=== PATIENT | female | born 1980 | race Two or more races ===

== ENCOUNTER 2020-04-12 11:24 | Outpatient (REF) | payer OTHER, SELFPAY | END 2020-04-12 11:25 | disposition home or self-care (01) | LOC: HO.LAB 11:24 | PROVIDERS: PCP Nurse Practitioner Family; Visit Provider Nurse Practitioner Family | DX: Z13.89 Encounter for screening for other disorder (principal) ==

== ENCOUNTER 2020-04-23 07:49 | Outpatient (REF) | payer OTHER, SELFPAY ==
[2020-04-23 08:39] LABS: MANUAL DIFF FLAG NO
[2020-04-23 08:41] LABS: Basophils Percent Auto 0.5 % (0-2); Eosinophils Absolute Auto 0.2 X10*3/uL (0.0-0.4); Eosinophils Percent Auto 3.8 % (0-4); Hematocrit 36.7 % (37-47); Hemoglobin 12.2 g/dl (12.0-16.0); Lymphocytes Absolute Auto 1.7 X10*3/uL (1.2-4.9); Lymphocytes Percent Auto 39.8 % (20-40); Mean Corpuscular HGB Conc 33.2 g/dl (31.0-35.0); Mean Corpuscular Hemoglobin 31.5 pg (27.0-33.0); Mean Corpuscular Volume 94.8 fL (80-98); Mean Platelet Volume 9.5 fL (9.4-12.3); Monocytes Absolute Auto 0.3 X10*3/uL (0.1-1.2); Monocytes Percent Auto 7.5 % (2-11); Neutrophils Absolute Auto 2.1 X10*3/uL (2.0-8.3); Neutrophils Percent Auto 48.4 % (45-73); Platelet Count 209 X10*3/uL (160-400); Red Blood Count 3.87 X10*6/uL (4.20-5.50); Red Cell Distribution Width 11.5 % (11.0-16.0); White Blood Count 4.3 X10*3/uL (4.8-10.8)
[2020-04-23 09:32] LABS: Alanine Aminotransferase 10 U/L (0-31); Albumin Level 4.2 g/dL (3.5-5.0); Alkaline Phosphatase 40 U/L (39-117); Anion Gap 11 (12-20); Aspartate Amino Transferase 15 U/L (5-31); Bilirubin Total 0.3 mg/dL (0.0-1.0); Blood Urea Nitrogen 11 mg/dL (9-16); C Reactive Protein 0.05 mg/dL (< or = 0.50); Calcium 8.5 mg/dL (8.4-10.2); Carbon Dioxide 25 mmol/L (22-29); Chloride 107 mmol/L (96-108); Cholesterol 175 mg/dL; Estimated Glomerular Filt Rate > 60; Glucose Fasting 96 mg/dL (60-99); HDL Cholesterol 64 mg/dL; LDL Cholesterol Calculated 104 mg/dl; Sodium 139 mmol/L (135-145); Total Protein 7.2 g/dL (6.5-8.0); Triglycerides 38 mg/dL
[2020-04-23 09:49] LABS: TSH reflex Free T4 2.09 mIU/mL (0.32-4.0)
== END 2020-04-23 07:50 | disposition home or self-care (01) ==
LOC: HO.LAB 07:49
PROVIDERS: Visit Provider Nurse Practitioner Family
DX: R59.9 Enlarged lymph nodes, unspecified (principal); M25.512 Pain in left shoulder; L60.3 Nail dystrophy; L65.9 Nonscarring hair loss, unspecified; Z13.220 Encounter for screening for lipoid disorders
CPT/HCPCS: 36415; 80053; 80061; 84443; 85025; 86140

== ENCOUNTER 2020-05-21 08:00 | Outpatient (RCR) | payer OTHER, SELFPAY | END 2020-05-21 13:58 | disposition other institution (70) | LOC: HO.PT 08:00 | PROVIDERS: PCP Nurse Practitioner Family; Visit Provider Nurse Practitioner Family | DX: M79.18 Myalgia, other site (principal) | CPT/HCPCS: 97033; 97110; 97112; 97140; 97162; 97530; 97535 ==

== ENCOUNTER 2020-06-16 10:18 | Outpatient (REF) | payer OTHER, SELFPAY ==
[2020-06-16 10:56] LABS: Immature Retic Fraction 8.4 % (3.0-15.9); Retic HGB Equivalent 36.2 pg (30.0-35.0); Reticulocyte Percent 1.9 % (0.5-1.8); Reticulocytes Absolute 0.078 X10*6/uL (0.026-0.095)
[2020-06-16 11:38] LABS: Bilirubin Direct 0.2 mg/dL (0.0-0.5); Bilirubin Total 0.6 mg/dL (0.0-1.0); Lactate Dehydrogenase 124 U/L (122-220)
[2020-06-16 11:59] LABS: Ferritin 34 ng/mL (10-250)
[2020-06-17 17:17] LABS: Haptoglobin 73 mg/dL (43-212)
== END 2020-06-16 10:19 | disposition home or self-care (01) ==
LOC: HO.LAB 10:18
PROVIDERS: PCP Nurse Practitioner Family; Visit Provider Nurse Practitioner Family
DX: D64.9 Anemia, unspecified (principal)
CPT/HCPCS: 36415; 82247; 82248; 82728; 83010; 83615; 85045

== ENCOUNTER → 2020-06-21 09:07 | Outpatient (BNVA) | payer OTHER, SELFPAY | PROVIDERS: PCP Nurse Practitioner Family; Referring Provider Nurse Practitioner Family; Visit Provider Internal Medicine Gastroenterology ==

== ENCOUNTER 2020-07-16 09:02 | Outpatient (REF) | payer OTHER, SELFPAY ==
[2020-07-16 09:31] LABS: MANUAL DIFF FLAG NO
[2020-07-16 09:35] LABS: Basophils Percent Auto 0.5 % (0-2); Eosinophils Absolute Auto 0.1 X10*3/uL (0.0-0.4); Eosinophils Percent Auto 2.4 % (0-4); Hematocrit 39.6 % (37-47); Hemoglobin 12.9 g/dl (12.0-16.0); Imm Gran Abs Auto 0.01 X10*3/uL (0.00-0.03); Imm Gran Pct Auto 0.2 % (0.0-0.4); Lymphocytes Absolute Auto 1.9 X10*3/uL (1.2-4.9); Mean Corpuscular HGB Conc 32.6 g/dl (31.0-35.0); Mean Corpuscular Hemoglobin 30.7 pg (27.0-33.0); Mean Corpuscular Volume 94.3 fL (80-98); Mean Platelet Volume 9.1 fL (9.4-12.3); Monocytes Absolute Auto 0.4 X10*3/uL (0.1-1.2); Monocytes Percent Auto 6.6 % (2-11); Neutrophils Percent Auto 55.3 % (45-73); Platelet Count 233 X10*3/uL (160-400); Red Cell Distribution Width 11.9 % (11.0-16.0); White Blood Count 5.5 X10*3/uL (4.8-10.8)
[2020-07-16 10:17] LABS: Alanine Aminotransferase 15 U/L (0-31); Albumin Level 4.6 g/dL (3.5-5.0); Alkaline Phosphatase 43 U/L (39-117); Anion Gap 10 (12-20); Aspartate Amino Transferase 16 U/L (5-31); Bilirubin Total 0.6 mg/dL (0.0-1.0); Blood Urea Nitrogen 12 mg/dL (9-16); C Reactive Protein 0.03 mg/dL (< or = 0.50); Calcium 9.3 mg/dL (8.4-10.2); Carbon Dioxide 28 mmol/L (22-29); Chloride 104 mmol/L (96-108); Estimated Glomerular Filt Rate > 60; Glucose Random 92 mg/dL (60-115); Potassium 4.2 mmol/L (3.3-5.1); Sodium 138 mmol/L (135-145); Total Protein 8.1 g/dL (6.5-8.0)
[2020-07-16 10:26] LABS: Erythrocyte Sedimentation Rate 10 MM/HR (0-20)
[2020-07-16 10:41] LABS: Ferritin 31 ng/mL (10-250); Vitamin D 25-OH Total 34.6 ng/mL (>30)
[2020-07-16 11:16] LABS: Folate 19.4 ng/mL (> or = 4.0); Vitamin B12 1598 pg/mL (200-900)
[2020-07-19 13:11] LABS: Transglutaminase Ab IgG 3 U/mL; Transglutaminase IgA 1 U/mL
[2020-07-20 14:37] LABS: Nicotinamide <20 ng/mL; Vit B3 - Nicotinic Acid <20 ng/mL
[2020-07-21 06:12] LABS: IgA 265 mg/dL (47-310); IgG 1786 mg/dL (600-1640); IgM 150 mg/dL (50-300)
[2020-07-22 01:26] LABS: Zinc 83 mcg/dL (60-130)
[2020-07-22 08:13] LABS: Vitamin B6 40.6 ng/mL (2.1-21.7)
[2020-07-22 18:16] LABS: Vitamin A 28 mcg/dL (38-98)
[2020-07-23 12:16] LABS: Alpha-Tocopherol 14.3 mg/L (5.7-19.9); Beta-Gamma Tocopherol <1.0 mg/L (<=4.3)
[2020-07-23 17:57] LABS: Vitamin K1 702 pg/mL (130-1500)
[2020-07-26 09:17] LABS: Vitamin B5 (Pantothenic Acid) 91 ng/mL (<275)
== END 2020-07-16 09:03 | disposition home or self-care (01) ==
LOC: HO.LAB 09:02
PROVIDERS: PCP Nurse Practitioner Family; Visit Provider Internal Medicine Gastroenterology
DX: K52.839 Microscopic colitis, unspecified (principal); G89.29 Other chronic pain; R10.33 Periumbilical pain
CPT/HCPCS: 36415; 80053; 82180; 82306; 82607; 82728; 82746; 82784; 83516; 84207; 84446; 84590; 84591; 84597; 84630; 85025; 85652; 86140

== ENCOUNTER 2020-09-07 10:00 | Outpatient (REF) | payer OTHER, SELFPAY ==
[2020-09-08 13:45] LABS: BV Int Neg Control Negative (Negative); BV Int Pos Control Positive (Positive)
== END 2020-09-07 10:01 | disposition home or self-care (01) ==
LOC: HO.LAB 10:00
PROVIDERS: PCP Nurse Practitioner Family; Visit Provider Advanced Practice Midwife
DX: Z01.419 Encounter for gynecological examination (general) (routine) without abnormal findings (principal); Z20.2 Contact with and (suspected) exposure to infections with a predominantly sexual mode of transmission
CPT/HCPCS: 87480; 87510; 87660

== ENCOUNTER 2020-09-17 12:08 | Outpatient (REF) | payer OTHER, SELFPAY ==
[2020-09-22 19:22] LABS: Vitamin A 28 mcg/dL (38-98)
== END 2020-09-17 12:09 | disposition home or self-care (01) ==
LOC: HO.LAB 12:08
PROVIDERS: Absent Provider Nurse Practitioner Family; PCP Nurse Practitioner Family; Visit Provider Internal Medicine Gastroenterology
DX: K52.839 Microscopic colitis, unspecified (principal)
CPT/HCPCS: 36415; 84590

== ENCOUNTER → 2020-10-15 10:16 | Outpatient (BNVA) | payer OTHER, SELFPAY | PROVIDERS: PCP Nurse Practitioner Family; Visit Provider Internal Medicine Gastroenterology ==

== ENCOUNTER 2020-11-20 08:33 | Outpatient (REF) | payer OTHER, SELFPAY ==
[2020-11-20 10:10] LABS: Vitamin D 25-OH Total 32.4 ng/mL (>30)
[2020-11-25 00:46] LABS: Vitamin A 28 mcg/dL (38-98)
== END 2020-11-20 08:34 | disposition home or self-care (01) ==
LOC: HO.LAB 08:33
PROVIDERS: PCP Nurse Practitioner Family; Visit Provider Internal Medicine Gastroenterology
DX: K52.839 Microscopic colitis, unspecified (principal)
CPT/HCPCS: 36415; 82306; 84590

== ENCOUNTER → 2021-02-18 10:04 | Outpatient (BNVA) | payer OTHER, SELFPAY | PROVIDERS: PCP Nurse Practitioner Family; Visit Provider Internal Medicine Gastroenterology ==

== ENCOUNTER 2021-03-19 07:22 | Outpatient (REF) | payer OTHER, SELFPAY ==
[2021-03-19 08:24] LABS: Iron 84 mcg/dL (30-160); Percent Iron Saturation 25 % (15-50); Total Iron Binding Capacity 342 mcg/dL (228-428); Unsaturated Iron Binding 258 ug/dL
[2021-03-19 08:44] LABS: Ferritin 45 ng/mL (10-250); Vitamin D 25-OH Total 34.3 ng/mL (>30)
[2021-03-19 09:09] LABS: Folate 15.5 ng/mL (> or = 4.0); Vitamin B12 753 pg/mL (200-900)
[2021-03-21 08:46] LABS: Calcium, Ionized 4.9 mg/dL (4.8-5.6)
[2021-03-23 00:20] LABS: Vitamin A 33 mcg/dL (38-98)
[2021-03-23 01:26] LABS: Zinc 130 mcg/dL (60-130)
[2021-03-23 12:46] LABS: Nicotinamide <20 ng/mL; Vit B3 - Nicotinic Acid <20 ng/mL
[2021-03-24 16:41] LABS: Vitamin B6 58.7 ng/mL (2.1-21.7)
[2021-03-24 20:26] LABS: Vitamin C 1.4 mg/dL (0.3-2.7)
[2021-03-25 17:01] LABS: Vitamin B5 (Pantothenic Acid) 40 ng/mL (<275)
== END 2021-03-19 07:23 | disposition home or self-care (01) ==
LOC: HO.LAB 07:22
PROVIDERS: PCP Nurse Practitioner Family; Visit Provider Internal Medicine Gastroenterology
DX: E03.8 Other specified hypothyroidism (principal); E46 Unspecified protein-calorie malnutrition; K52.839 Microscopic colitis, unspecified
CPT/HCPCS: 36415; 82180; 82306; 82330; 82607; 82728; 82746; 83540; 84207; 84590; 84591; 84630

== ENCOUNTER 2021-03-26 08:43 | Outpatient (REF) | payer OTHER, SELFPAY ==
[2021-03-26 10:13] LABS: Hematocrit 36.5 % (37.0-47.0); Hemoglobin 12.1 g/dl (12.0-16.0); Mean Corpuscular HGB Conc 33.2 g/dl (31.0-35.0); Mean Corpuscular Hemoglobin 31.2 pg (27.0-33.0); Mean Corpuscular Volume 94.1 fL (80.0-98.0); Mean Platelet Volume 9.7 fL (9.4-12.3); Platelet Count 226 X10*3/uL (160-400); Red Blood Count 3.88 X10*6/uL (4.20-5.50); Red Cell Distribution Width 12.1 % (11.0-16.0); White Blood Count 5.1 X10*3/uL (4.8-10.8)
[2021-03-26 10:55] LABS: Alanine Aminotransferase 12 U/L (0-31); Albumin Level 4.1 g/dL (3.5-5.0); Alkaline Phosphatase 43 U/L (39-117); Anion Gap 10 (12-20); Aspartate Amino Transferase 16 U/L (5-31); Bilirubin Total 0.6 mg/dL (0.0-1.0); Blood Urea Nitrogen 10 mg/dL (9-16); Calcium 9.1 mg/dL (8.4-10.2); Carbon Dioxide 25 mmol/L (22-29); Chloride 108 mmol/L (96-108); Cholesterol 165 mg/dL; Estimated Glomerular Filt Rate > 60; Glucose Random 85 mg/dL (60-115); HDL Cholesterol 56 mg/dL; LDL Cholesterol Calculated 100 mg/dl; Sodium 139 mmol/L (135-145); Total Protein 7.2 g/dL (6.5-8.0); Triglycerides 46 mg/dL
[2021-03-26 11:08] LABS: Free T4 (Free Thyroxine) 0.97 ng/dL (0.71-1.85); Thyroid Stimulating Hormone 2.31 uIU/mL (0.32-4.0)
[2021-03-28 08:05] LABS: Vitamin B12 739 pg/mL (200-900)
== END 2021-03-26 08:44 | disposition home or self-care (01) ==
LOC: HO.LAB 08:43
PROVIDERS: Absent Provider Nurse Practitioner Family; PCP Nurse Practitioner Family; Visit Provider Dentist Pediatric Dentistry
DX: R68.89 Other general symptoms and signs (principal)
CPT/HCPCS: 36415; 80053; 80061; 82306; 82607; 84439; 84443; 85027

== ENCOUNTER 2021-04-01 16:20 | Outpatient (REF) | payer OTHER, SELFPAY | END 2021-04-01 16:21 | disposition home or self-care (01) | LOC: HO.LAB 16:20 | PROVIDERS: PCP Nurse Practitioner Family; Visit Provider Internal Medicine Gastroenterology | DX: K52.839 Microscopic colitis, unspecified (principal); E46 Unspecified protein-calorie malnutrition; E03.8 Other specified hypothyroidism | CPT/HCPCS: 36415; 86003 ==

== ENCOUNTER 2021-06-14 10:28 | Outpatient (REF) | payer OTHER, SELFPAY ==
--- NOTE | ~2021-06-14 | US_ITS ---
EXAMINATION: US LOWER EXTREMITY VENOUS (REFLUX EXAM), BILATERAL CLINICAL INDICATION: This is a 40-year-old female with venous insufficiency and varicose veins. COMPARISON: None. TECHNIQUE: Color flow triplex imaging and compression Doppler was performed to evaluate both the deep and the superficial systems bilaterally. To evaluate the superficial system, the examination was performed in the upright position. Color-flow Doppler ultrasound and compression ultrasound were utilized. In addition, maneuvers were utilized to demonstrate reflux. FINDINGS: 1. DEEP VENOUS ULTRASOUND OF THE RIGHT LOWER EXTREMITY: Common Femoral Vein: Compressible, normal respiratory variation and augmented flow. Femoral vein: Compressible, normal color flow and augmentation. Popliteal Vein: Compressible, normal augmentation. Deep Reflux: There is no evidence of reflux in the deep system in either the common femoral vein or the popliteal vein. There is no evidence of a Burk's cyst. 2. SUPERFICIAL ULTRASOUND WITH DOPPLER OF RIGHT LOWER EXTREMITY: GREAT SAPHENOUS VEIN: Saphenofemoral Junction: 0.8 cm Mid Thigh: 0.2 cm Above Knee: 0.3 cm Below Knee: 0.2 cm Mid Calf: 0.1 cm Ankle: There are 0.2 cm GSV REFLUX: No evidence of reflux. DUPLICATED GREAT SAPHENOUS VEIN: There is a 0.3 cm duplicated lateral great saphenous vein without reflux. SMALL SAPHENOUS VEIN: Proximal: 0.1 cm Distal: 0.1 cm SSV REFLUX: No evidence of reflux. VEIN OF GIACOMINI: None Imaged. PERFORATORS: None Imaged VARICOSITIES: None Imaged 3. DEEP VENOUS ULTRASOUND OF THE LEFT LOWER EXTREMITY: Common Femoral Vein: Compressible, normal respiratory variation and augmented flow. Femoral Vein: Compressible, normal color flow and augmentation. Popliteal Vein: Compressible, normal augmentation. Deep Reflux: There is no evidence of reflux in the deep system in either the common femoral vein or the popliteal vein. There is no evidence of a Burk's cyst. 4. SUPERFICIAL ULTRASOUND WITH DOPPLER OF LEFT LOWER EXTREMITY: GREAT SAPHENOUS VEIN: Saphenofemoral Junction: 0.8 cm Mid Thigh: 0.3 cm Above Knee: 0.5 cm Below Knee: 0.2 cm. The reflux time is 1912 ms. There is no reflux above or below this area. Mid Calf: 0.2 cm Ankle: 0.2 cm GSV REFLUX: There is no significant reflux in the great saphenous vein. DUPLICATED GREAT SAPHENOUS VEIN: There is a 0.2 cm duplicated lateral great saphenous vein without reflux. SMALL SAPHENOUS VEIN: Proximal: 0.2 cm Distal: 0.1 cm SSV REFLUX: No evidence of reflux. VEIN OF GIACOMINI: None Imaged. PERFORATORS: None Imaged VARICOSITIES: None Imaged US/US venous duplex LE BI IMPRESSION: 1 there are bilateral patent great saphenous veins and small saphenous veins without evidence of reflux. 2. No varicose veins are seen.
== END 2021-06-14 10:29 | disposition home or self-care (01) ==
LOC: HO.US 10:28
PROVIDERS: Visit Provider Surgery Vascular Surgery
DX: I83.813 Varicose veins of bilateral lower extremities with pain (principal)
CPT/HCPCS: 93970

== ENCOUNTER 2021-08-16 12:41 | Outpatient (REF) | payer OTHER, SELFPAY ==
[2021-08-22 12:46] LABS: Vitamin A 28 mcg/dL (38-98)
== END 2021-08-16 12:42 | disposition home or self-care (01) ==
LOC: HO.LAB 12:41
PROVIDERS: PCP Nurse Practitioner Family; Visit Provider Internal Medicine Gastroenterology
DX: E50.9 Vitamin A deficiency, unspecified (principal)
CPT/HCPCS: 36415; 84590

== ENCOUNTER → 2021-08-19 09:54 | Outpatient (BNVA) | payer OTHER, SELFPAY | PROVIDERS: PCP Nurse Practitioner Family; Visit Provider Internal Medicine Gastroenterology | DX: Z13.89 Encounter for screening for other disorder (principal) ==

== ENCOUNTER 2021-09-05 14:38 | Outpatient (REF) | payer OTHER, SELFPAY ==
--- NOTE | ~2021-09-05 | MM_ITS ---
EXAMINATION: MM DIAGNOSTIC DIGITAL BREAST TOMOSYNTHESIS, BILATERAL US DIAGNOSTIC ULTRASOUND BREAST, RIGHT CLINICAL INFORMATION: Palpable area anterior lateral right breast noted by patient. Prior history fibrocystic changes. The lifetime risk of breast cancer based on the Tyrer-Cuzick Model is 19%. COMPARISON: Mammography: 03/25/2019; bilateral breast ultrasound 03/25/2019, outside ultrasound right breast 02/27/2017 ([facility]). TECHNIQUE: Digital breast tomosynthesis is performed in both the craniocaudal and mediolateral oblique views along with computer-aided detection (CAD). Synthesized 2D images are generated from the tomosynthesis. Additional bilateral exaggerated CC views are obtained. Ultrasound right breast is targeted to the area of clinical concern. Grayscale imaging and color Doppler are performed without and with harmonics. Patient is able to point to area of concern at time of imaging. FINDINGS: The breasts are heterogeneously dense, which may obscure small masses (ACR BI-RADS breast composition Category c). There is mild increased parenchymal density on right related to asymmetry of compression 4 cm time of imaging. There is nodularity right breast corresponding to fibrocystic changes. Neither breast shows architectural abnormality or abnormal calcifications. There is no skin thickening or coarsening of the Celestino's ligaments. The axilla are unremarkable. Ultrasound right breast demonstrates simple cyst 9:00 position 2 cm from nipple measuring approximately 3.1 x 2.2 x 2.6 cm. Prior measurements are 2.7 x 0.9 x 2.6 cm on ultrasound 03/25/2019. The cyst is anechoic and shows increased through-transmission of sound and no associated color flow. There is a tiny satellite cyst 0.5 cm posterior to the dominant cyst. There is no solid mass or architectural abnormality. No focal duct ectasia. No skin thickening or edema tracking in soft tissue planes. Results are discussed with the patient at time of visit. The cyst would be amenable to percutaneous aspiration if symptomatic and/or increasing. MM/MM tomosynthesis diagnostic BI IMPRESSION: -No mammographic evidence of malignancy. -Palpable concern on right corresponds to a simple cyst measuring 3.1 cm. ASSESSMENT: BI-RADS 2: Benign RECOMMENDATION: -Routine annual screening mammography. -The simple cyst right breast would be amenable to percutaneous aspiration if symptomatic or increasing. This patient's information was entered into a reminder system with a target due date for their next mammogram.
== END 2021-09-05 14:39 | disposition home or self-care (01) ==
LOC: HO.MAMMO 14:38
PROVIDERS: PCP Nurse Practitioner Family; Visit Provider Family Medicine
DX: N60.01 Solitary cyst of right breast (principal)
CPT/HCPCS: 76642; 77062; 77066

== ENCOUNTER → 2021-09-09 10:25 | Outpatient (BNVA) | payer OTHER, SELFPAY | PROVIDERS: PCP Nurse Practitioner Family; Visit Provider Advanced Practice Midwife | DX: Z01.419 Encounter for gynecological examination (general) (routine) without abnormal findings (principal) ==

== ENCOUNTER 2022-02-13 16:00 | Outpatient (REF) | payer OTHER, SELFPAY ==
--- NOTE | ~2022-02-13 | XR_ITS ---
EXAMINATION: XR CHEST CLINICAL INFORMATION: Shortness of breath COMPARISON: None TECHNIQUE: 2 views of the chest were obtained. FINDINGS: Cardiac silhouette is normal in size. The lungs are well aerated. There is no lobar consolidation. No pleural effusion or pneumothorax. Mild degenerative changes of the spine. XR/XR chest 2V IMPRESSION: No acute pulmonary pathology.
[2022-02-13 16:17] LABS: MANUAL DIFF FLAG NO
[2022-02-13 16:40] LABS: Basophils Absolute Auto 0.1 X10*3/uL (0.0-0.2); Basophils Percent Auto 0.8 % (0-2); Eosinophils Absolute Auto 0.3 X10*3/uL (0.0-0.4); Eosinophils Percent Auto 4.1 % (0-4); Hematocrit 37.4 % (37.0-47.0); Hemoglobin 12.4 g/dl (12.0-16.0); Imm Gran Abs Auto 0.02 X10*3/uL (0.00-0.03); Imm Gran Pct Auto 0.3 % (0.0-0.4); Lymphocytes Absolute Auto 2.1 X10*3/uL (1.2-4.9); Lymphocytes Percent Auto 34.1 % (20-40); Mean Corpuscular HGB Conc 33.2 g/dl (31.0-35.0); Mean Corpuscular Hemoglobin 30.7 pg (27.0-33.0); Mean Corpuscular Volume 92.6 fL (80.0-98.0); Mean Platelet Volume 9.4 fL (9.4-12.3); Monocytes Absolute Auto 0.4 X10*3/uL (0.1-1.2); Monocytes Percent Auto 6.8 % (2-11); Neutrophils Absolute Auto 3.3 x10*3/uL (2.0-8.3); Neutrophils Percent Auto 53.9 % (45-73); Platelet Count 259 X10*3/uL (160-400); Red Blood Count 4.04 X10*6/uL (4.20-5.50); White Blood Count 6.2 X10*3/uL (4.8-10.8)
[2022-02-13 17:05] LABS: Alanine Aminotransferase 16 U/L (0-31); Albumin Level 4.5 g/dL (3.5-5.0); Alkaline Phosphatase 50 U/L (39-117); Anion Gap 13 (12-20); Aspartate Amino Transferase 19 U/L (5-31); Bilirubin Total 0.3 mg/dL (0.0-1.0); Blood Urea Nitrogen 10 mg/dL (9-16); Calcium 9.6 mg/dL (8.4-10.2); Carbon Dioxide 26 mmol/L (22-29); Chloride 103 mmol/L (96-108); Estimated Glomerular Filt Rate > 60; Glucose Random 89 mg/dL (60-115); Potassium 3.9 mmol/L (3.3-5.1); Sodium 138 mmol/L (135-145); Total Protein 7.9 g/dL (6.5-8.0)
[2022-02-13 17:26] LABS: TSH reflex Free T4 1.52 uIU/mL (0.32-4.0)
[2022-02-17 18:51] LABS: Vitamin A 62 mcg/dL (38-98)
== END 2022-02-13 16:01 | disposition home or self-care (01) ==
LOC: HO.LAB 16:00
PROVIDERS: PCP Nurse Practitioner Family; Visit Provider Nurse Practitioner Family
DX: Z00.00 Encounter for general adult medical examination without abnormal findings (principal); R06.00 Dyspnea, unspecified; D64.9 Anemia, unspecified
CPT/HCPCS: 36415; 71046; 80053; 84443; 84590; 85025

== ENCOUNTER 2022-07-07 09:28 | Outpatient (REF) | payer OTHER, SELFPAY ==
[2022-07-07 09:54] LABS: MANUAL DIFF FLAG NO
[2022-07-07 11:00] LABS: Basophils Percent Auto 0.6 % (0-2); Eosinophils Absolute Auto 0.2 X10*3/uL (0.0-0.4); Eosinophils Percent Auto 3.5 % (0-4); Hematocrit 36.4 % (37.0-47.0); Hemoglobin 12.1 g/dl (12.0-16.0); Imm Gran Abs Auto 0.01 X10*3/uL (0.00-0.03); Imm Gran Pct Auto 0.2 % (0.0-0.4); Lymphocytes Absolute Auto 1.8 X10*3/uL (1.2-4.9); Mean Corpuscular HGB Conc 33.2 g/dl (31.0-35.0); Mean Corpuscular Hemoglobin 31.5 pg (27.0-33.0); Mean Corpuscular Volume 94.8 fL (80.0-98.0); Mean Platelet Volume 9.7 fL (9.4-12.3); Monocytes Absolute Auto 0.4 X10*3/uL (0.1-1.2); Monocytes Percent Auto 7.7 % (2-11); Neutrophils Absolute Auto 2.6 x10*3/uL (2.0-8.3); Platelet Count 224 X10*3/uL (160-400); Red Blood Count 3.84 X10*6/uL (4.20-5.50); Red Cell Distribution Width 11.9 % (11.0-16.0); White Blood Count 4.9 X10*3/uL (4.8-10.8)
[2022-07-07 11:20] LABS: Alanine Aminotransferase 9 U/L (0-31); Alkaline Phosphatase 47 U/L (39-117); Anion Gap 10 (12-20); Aspartate Amino Transferase 17 U/L (5-31); Bilirubin Total 0.6 mg/dL (0.0-1.0); Blood Urea Nitrogen 12 mg/dL (9-16); Calcium 8.6 mg/dL (8.4-10.2); Carbon Dioxide 26 mmol/L (22-29); Chloride 107 mmol/L (96-108); Estimated Glomerular Filt Rate > 60; Glucose Random 87 mg/dL (60-115); Sodium 139 mmol/L (135-145); Total Protein 6.6 g/dL (6.5-8.0)
[2022-07-07 11:38] LABS: TSH reflex Free T4 1.47 uIU/mL (0.32-4.0); Vitamin D 25-OH Total 21.7 ng/mL (>30)
== END 2022-07-07 09:29 | disposition home or self-care (01) ==
LOC: HO.LAB 09:28
PROVIDERS: PCP Physician Assistant Medical; Visit Provider Physician Assistant Medical
DX: R53.82 Chronic fatigue, unspecified (principal)
CPT/HCPCS: 36415; 80053; 82306; 84443; 85025

== ENCOUNTER → 2022-07-17 11:03 | Outpatient (BNVA) | payer OTHER, SELFPAY | PROVIDERS: PCP Physician Assistant Medical; Visit Provider Internal Medicine Gastroenterology | DX: Z13.89 Encounter for screening for other disorder (principal) ==

== ENCOUNTER 2022-07-22 09:44 | Outpatient (REF) | payer OTHER, SELFPAY ==
[2022-07-27 05:09] LABS: Vitamin A 33 mcg/dL (38-98)
== END 2022-07-22 09:45 | disposition home or self-care (01) ==
LOC: HO.LAB 09:44
PROVIDERS: Absent Provider Physician Assistant Medical; PCP Physician Assistant Medical; Visit Provider Internal Medicine Gastroenterology
DX: E50.9 Vitamin A deficiency, unspecified (principal)
CPT/HCPCS: 36415; 84590

== ENCOUNTER → 2022-09-20 11:36 | Outpatient (REF) | payer OTHER, SELFPAY | LOC: HO.SL 11:36 | PROVIDERS: PCP Physician Assistant Medical; Visit Provider Physician Assistant Medical | DX: R06.83 Snoring (principal); R53.82 Chronic fatigue, unspecified | CPT/HCPCS: 95806 ==

== ENCOUNTER 2022-12-29 08:28 | Outpatient (REF) | payer OTHER, SELFPAY ==
[2022-12-29 11:37] LABS: Alanine Aminotransferase 9 U/L (0-31); Albumin Level 4.2 g/dL (3.5-5.0); Alkaline Phosphatase 59 U/L (39-117); Anion Gap 10 (12-20); Aspartate Amino Transferase 16 U/L (5-31); Bilirubin Total 0.3 mg/dL (0.0-1.0); Blood Urea Nitrogen 11 mg/dL (9-16); Carbon Dioxide 26 mmol/L (22-29); Chloride 106 mmol/L (96-108); Estimated Glomerular Filt Rate > 60; Glucose Random 91 mg/dL (60-115); Sodium 138 mmol/L (135-145); Total Protein 7.4 g/dL (6.5-8.0)
[2022-12-29 11:58] LABS: Folate 14.2 ng/mL (> or = 4.0); Vitamin B12 1072 pg/mL (200-900)
[2022-12-29 12:03] LABS: Ferritin 49 ng/mL (10-250); Vitamin D 25-OH Total 32.5 ng/mL (>30)
[2023-01-03 03:23] LABS: Zinc 78 mcg/dL (60-130)
[2023-01-03 21:08] LABS: Vitamin K1 420 pg/mL (130-1500)
[2023-01-03 21:13] LABS: Vitamin A 32 mcg/dL (38-98)
[2023-01-04 13:27] LABS: Vitamin B6 11.3 ng/mL (2.1-21.7)
[2023-01-04 18:44] LABS: Alpha-Tocopherol 10.9 mg/L (5.7-19.9); Beta-Gamma Tocopherol 1.1 mg/L (<=4.3)
[2023-01-05 19:33] LABS: Vitamin C 0.5 mg/dL (0.3-2.7)
[2023-01-06 15:18] LABS: Vitamin B1 10 nmol/L (8-30)
[2023-01-07 23:59] LABS: Nicotinamide <20 ng/mL; Vit B3 - Nicotinic Acid <20 ng/mL; Vitamin B5 (Pantothenic Acid) 53 ng/mL (<275)
== END 2022-12-29 08:29 | disposition home or self-care (01) ==
LOC: HO.LAB 08:28
PROVIDERS: PCP Physician Assistant Medical; Visit Provider Internal Medicine Gastroenterology
DX: E50.9 Vitamin A deficiency, unspecified (principal); K75.81 Nonalcoholic steatohepatitis (NASH); E46 Unspecified protein-calorie malnutrition
CPT/HCPCS: 36415; 80053; 82180; 82306; 82607; 82728; 82746; 84207; 84425; 84446; 84590; 84591; 84597; 84630

== ENCOUNTER 2023-01-17 13:01 | Outpatient (AMB) | payer OTHER, SELFPAY ==
--- NOTE | 2023-01-17 13:15 | A.OFFVIS_ITS ---
Intake Vital Signs 01/17/23 13:18 Height 5 ft 6 in Weight 167 lb BMI 27.0 BP 120/78 Blood Pressure Location Rt brachial Position Sitting Intake Visit Reasons: ENP-Sleep - Confirmed Intake Note: Patient presents for evaluation for sleep. Patient states having a hard time staying asleep,also if i get up in the middle of the night it's takes a long time to fall back asleep. Allergies ciprofloxacin [Cipro] Adverse Reaction (Mild, Verified 01/17/23 13:19) side effects shrimp Allergy (Mild, Uncoded 01/17/23 13:19) Throat swells up, cant breathe HPI HPI Comments History of Present Illness Details 42 y/o female patient presents for new i n-person visit for sleep consultation. Pt reports trouble falling asleep and fatigue during the daytime. She had a home sleep study done, but it was negative for sleep apnea. Pt reports she did not sleep well. She tracks sleep pattern with smart watch, and it shows she sleeps very light and small amount of deep sleep. Sleep questionnaire: Have you ever been diagnosed with a sleep disorder? No. Have you ever had a sleep study in the past? Yes. Have you ever been treated for a sleep disorder? No. Do you take medications for a sleep disorder? OTC sleep aids. Do you snore? Not really. Do you wake up gasping at night? No. Do you have episodes of apneas? Yes. If yes, are they witnessed? Yes. Do you have episodes of nocturnal chest pain or dyspnea? No. Do you have difficulty initiating sleep? Yes. Do you have difficulty maintaining sleep? No. Do you wake up tired? Yes, sometimes. Do you have headaches upon awakening? No. Do you wake up with dry mouth or throat? No. Do you have GERD? No. Do you have nocturia? No. Do you have nocturnal leg cramps? No. Do you have symptoms of restless legs? Sometimes. Do you act out your dreams? No. Sleep hygiene questionnaire: What is your usual sleep routine? Usual bedtime is at 10 pm; Usual wake up time is at 7 am. Do you take naps? No. Is your sleep environment cool, dark, and quiet? Yes. Do you exercise? Sometimes. Do you take caffeine or other stimulants? Coffee in the morning. Do you use electronics in bed? Yes, using phone. What is your work schedule? 9 am to 6 :30 pm Hypersomnolence questionnaire: Do you have daytime tiredness or fatigue? Yes. Do you easily fall asleep when inactive? Yes. Have you ever had episodes of sudden weakness? No. Have you ever had episodes of sudden weakness associated with strong emotions? No. PFSH Medical History Microscopic colitis Surgical History H/O colonoscopy History of esophagogastroduodenoscopy (EGD) H/O foot surgery Family History Mother Hypotension Heart problem Diverticulosis Father HTN (hypertension) HX: breast cancer Hx of thyroid disease Brother Seizure Social History Household Members: Spouse Alcohol intake: current Alcohol intake frequency: does not drink Gender identity: Female Female Reproductive History Menstrual Age of Menarche: 10 Review of Systems Const All systems reviewed & are unremarkable except as noted in HPI and below Physical Exam Vital Signs: Last Vital Signs BP 120/78 01/17/23 13:18 BMI result Body Mass Index 27.0 Const General: cooperative Nutritional Appearance: overweight Orientation/consciousness: patient oriented x3 Neck Neck: Yes full ROM and Yes supple Resp Effort & Inspection: normal respiratory effort and able to speak in complete sentences Neuro General: patient oriented x3 Assessment & Plan Assessment & Plan (1) Snoring: Code(s): R06.83 - Snoring (2) Daytime sleepiness: Code(s): R40.0 - Somnolence Plan Advised patient to undergo in lab sleep study to assess sleep apnea and PLMD. Will f/u of sleep study for appropriate treatment options. Sleep hygiene education provided. Limit screen time before bedtime. Encouraged patient to have daily exercise, walking 30 min daily. She may try magnesium, calcium and vitamin D supplement qHS. Advised patient to write sleep log. Orders: Orders RT PSG in-lab sleep study Today R06.83 - Snoring, R40.0 - Somnolence Coding Level of Care Code New Pt Level 4 (85341) Diagnoses Snoring R06.83 Daytime sleepiness R40.0
[2023-01-17 13:18] VITALS: BP 120/78; BMI 27.0
== END 2023-01-17 14:12 | disposition home or self-care (01) ==
PROVIDERS: PCP Physician Assistant Medical; Visit Provider Nurse Practitioner Family
DX: R06.83 Snoring (principal); R40.0 Somnolence
CPT/HCPCS: 99204

== ENCOUNTER → 2023-01-17 13:01 | Outpatient (BNVA) | payer OTHER, SELFPAY | PROVIDERS: PCP Physician Assistant Medical; Visit Provider Nurse Practitioner Family ==

== ENCOUNTER → 2023-02-05 20:30 | Outpatient (REF) | payer OTHER, SELFPAY | LOC: HO.SL 20:30 | PROVIDERS: PCP Physician Assistant Medical; Visit Provider Nurse Practitioner Family | DX: R06.83 Snoring (principal); R40.0 Somnolence | CPT/HCPCS: 95810 ==

== ENCOUNTER → 2023-02-05 22:37 | Outpatient (BNV) | payer OTHER, SELFPAY | PROVIDERS: PCP Physician Assistant Medical; Visit Provider Psychiatry & Neurology Neurology | DX: R40.0 Somnolence (principal) | CPT/HCPCS: 95810 ==

== ENCOUNTER 2023-02-12 11:07 | Outpatient (AMB) | payer OTHER, SELFPAY ==
--- NOTE | 2023-02-12 11:10 | A.OFFVIS_ITS ---
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 Intake Note: c/o of vaginal itch Pilot Plant Technician Required: No Information Interpreted: non-clinical & clinical Manager Drug Safety: Manager Drug Safety Present (Celina Bragg KEN) Accompanied by: Self / Same As Patient Allergies ciprofloxacin [Cipro] Adverse Reaction (Mild, Verified 02/12/23 11:13) side effects shrimp Allergy (Mild, Uncoded 02/12/23 11:13) Throat swells up, cant breathe Medication List - Last Reconciled 02/12/23 by Sarah Garcia CNM ashwagandha root extract mg PO cholecalciferol (vitamin D3) 25 mcg PO DAILY digestive enzymes 1 cap PO DAILY fluticasone propionate 50 mcg/actuation 1 spray intranasal BID lactobacillus combination no.4 (Probiotic) 3,000 mmu cells PO DAILY multivitamin 1 tab PO DAILY salmon oil-omega-3 fatty acids 1,000-200 mg caps PO vitamin A palmitate 3,000 mcg PO DAILY Is last menstrual period known: Yes Last menstrual period: 01/21/23 [facility] COMPUTER SYSTEMS 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 On questioning about openness to she believes that probably she can not get anymore because they been together for so long and have not gotten . She says her thinks that that it might be him he does have pre diabetes and is overweight. I did discuss with her about should she get what would she do and she said she would continue with it and she does know that she would be slightly higher risk because of her age but she is in good health. She is on extra vitamin a for another condition and I recommend she speak with the ordering provider about her levels. She said her last menstrual period was January 21 she is probably due to get her next. According to her missael towards the end of the week. She had started using a tea tree oil preparation that she got online for use around the outside of her vagina to deal with the vaginal itching. She last used it yesterday. She has no worries about STDs and her last Pap smear was in 2019 so she is due for her next 1 next year. She does get regular mammograms and needs to schedule her next 1 which is due and she has gotten a reminder. 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 Sexual orientation: Straight/Heterosexual Gender identity: Female Female Reproductive History Menstrual Age of Menarche: 10 Duration of menses: 3-5 days Date of last menstrual period: 01/21/23 control method: none Total pregnancies: 0 Date of last pap smear: 04/03/19 Date of Mammogram: 09/05/21 Physical Exam Vital Signs: Last Vital Signs BP 118/70 02/12/23 11:11 BMI result Body Mass Index 26.6 Const General: healthy appearing, comfortable, no acute distress, well developed and alert Nutritional Appearance: average body habitus Orientation/consciousness: patient oriented x3 Limitations: no limitations HEENT Head: Yes normocephalic Neck Neck: Yes normal visual inspection Chest Chest palpation & inspection: normal inspection of the chest Breast/axilla inspection: normal inspection of the breasts and normal inspection of the axillae Breast/axilla palpation: normal palpation of the breasts and normal palpation of the axillae Resp Effort & Inspection: normal respiratory effort GI Inspection: Yes normal to inspection, No Abdominal wall edema and No distended Palpation (GI): Soft to palpation and nontender Other: External exam completely within normal limits labia minora and majora completely normal no evidence of irritation or discharge or changes consistent with yeast or any other issue. Vagina pink and moist healthy appearing scant clear mucus cervix is nulliparous pink smooth clear uterus midposition slightly difficult to palpate secondary to full bladder. Challenging to elicit pelvic muscle tone however patient did seem to have good tone instructions on Kegel's given adnexa nontender not enlarged external area where patient later shared she is it she also did not reveal any abnormal skin changes General: Yes bladder normal to palpation External Female Exam: normal external appearance and normal appearance of the urethra Speculum Exam - Vagina: normal appearance of the vagina, normal palpation and normal vaginal discharge Speculum Exam - Cervix: normal appearance of the cervix, normal palpation and nontender Bimanual exam- vagina & uterus: normal bimanual exam, normal palpation, uterine size normal, bladder normal to palpation, consistency normal, normal palpation, uterine mobility normal, uterine shape normal, No Cervical tenderness present, non-tender and no cervical motion tenderness Bimanual Exam- Adnexa, other: normal adnexae, no masses, normal and No adnexal tenderness Neuro General: patient oriented x3 Assessment & Plan Assessment & Plan (1) Cervical cancer screening: Comment: Pap and HPV negative in 2019 and 2016. Next Pap with HPV co-testing is due 2023. 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 On questioning about openness to she believes that probably she can not get anymore because they been together for so long and have not gotten . She says her thinks that that it might be him he does have pre diabetes and is overweight. I did discuss with her about should she get what would she do and she said she would continue with it and she does know that she would be slightly higher risk because of her age but she is in good health. She is on extra vitamin a for another condition and I recommend she speak with the ordering provider about her levels. She said her last menstrual period was January 21 she is probably due to get her next. According to her missael towards the end of the week. She had started using a tea tree oil preparation that she got online for use around the outside of her vagina to deal with the vaginal itching. She last used it yesterday. She has no worries about STDs and her last Pap smear was in 2018 so she is due for her next 1 next year. She does get regular mammograms and needs to schedule her next 1 which is due and she has gotten a reminder. At the end of the visit when the patient showed me where she had been putting the tea tree oil it was not around her vagina but it was around her entire groin area and months pubis and inguinal areas. She only uses a little bit once in a while it is in the small container.(she showed me the ingredients on her cell phone which include very many ?natural oils only 1 of which is tea tree oil and it also includes aloe vera, & many of which are used in skin care in very many products. It sounds like she is not using it near her vagina or labial areas at all and in fact the itching is not in her vagina at all it is external to her vagina and labia. Her exam of her vagina and labial areas risk completely normal and healthy and she denied that that was where she was itching. The itching was all external to that area and was not constant. I discussed normal hygiene and the benefits of clean water and air and that the oral that she is using externally on her skin is probably fine for that area but she was never using it on her vagina anyway. I explained the testing that we did and if anything shows positive particularly the Gardnerella or Yvette that using the gel or cream that is offered is probably preferable to the stronger medications which all have strong her side effects. Additionally we discussed openness to fertility and what she would do if she did get she would welcome it and it would be fine but she does not really think it will happen at this stage however I did tell her that because she would be higher risk and also because of the importance of establishing a relationship with team who would be in vulva with helping her through her that I strongly recommend she receive all care through [facility] at 1 of their practices and discussed all the many reasons why that would be important for her 1st , irregardless of age. She is taking a multivitamin with folic acid. Next year she will have her Pap smear. She is going to be scheduling her mammograms. I did give her handout on Kegel's and she did have good tone I think that it was a matter of communicating which muscles to contract during the exam. Orders: Orders CT NG by PCR Today N89.8 - Other specified noninflammatory disorders of vagina Bacterial Vaginosis Panel Today N89.8 - Other specified noninflammatory disorders of vagina Coding Level of Care Code Est Pt Prev Care 40-64y(96895) Diagnoses Cervical cancer screening Z12.4 Uses fertility awareness method as primary control method Z78.9 Well woman exam with routine gynecological exam Z01.419
[2023-02-12 11:11] VITALS: BP 118/70; BMI 26.6
== END 2023-02-12 12:08 | disposition home or self-care (01) ==
PROVIDERS: PCP Physician Assistant Medical; Visit Provider Advanced Practice Midwife
DX: Z01.419 Encounter for gynecological examination (general) (routine) without abnormal findings (principal); Z78.9 Other specified health status
CPT/HCPCS: 99396

== ENCOUNTER 2023-02-12 11:07 | Outpatient (REF) | payer OTHER, SELFPAY ==
[2023-02-13 03:21] LABS: CT PCR NOT DETECTED (Not Detect.); NG PCR NOT DETECTED (Not Detect.)
[2023-02-13 11:54] LABS: BV Int Neg Control Negative (Negative); BV Int Pos Control Positive (Positive)
== END 2023-02-12 11:08 | disposition home or self-care (01) ==
LOC: HO.LNP 11:07
PROVIDERS: PCP Physician Assistant Medical; Visit Provider Advanced Practice Midwife
DX: Z01.419 Encounter for gynecological examination (general) (routine) without abnormal findings (principal); N89.8 Other specified noninflammatory disorders of vagina; Z78.9 Other specified health status
CPT/HCPCS: 0353U; 87480; 87510; 87660

== ENCOUNTER 2023-03-03 10:00 | Outpatient (REF) | payer OTHER, SELFPAY ==
[2023-03-03 11:37] LABS: Cholesterol 174 mg/dL (<200); HDL Cholesterol 59 mg/dL (>40); LDL Cholesterol Calculated 103 mg/dL (<100); Triglycerides 63 mg/dL (<150)
== END 2023-03-03 10:01 | disposition home or self-care (01) ==
LOC: HO.LAB 10:00
PROVIDERS: PCP Physician Assistant Medical; Visit Provider Physician Assistant Medical
DX: Z00.00 Encounter for general adult medical examination without abnormal findings (principal)
CPT/HCPCS: 36415; 80061

== ENCOUNTER 2023-03-19 09:03 | Outpatient (REF) | payer OTHER, SELFPAY | END 2023-03-19 09:04 | disposition home or self-care (01) | LOC: HO.SH 09:03 | PROVIDERS: Visit Provider Physician Assistant Medical | DX: Z01.118 Encounter for examination of ears and hearing with other abnormal findings (principal); H93.293 Other abnormal auditory perceptions, bilateral | CPT/HCPCS: 92557 ==

== ENCOUNTER → 2023-04-02 07:40 | Outpatient (REF) | payer OTHER, SELFPAY ==
--- NOTE | 2023-04-02 07:43 | CA_ITS ---
Transthoracic Echocardiogram Patient (Last, First, Middle): Silvestre Rangel, Gender: Female Date of : 1980 Age: 42 Procedure Date: 04/02/2023 Procedure Type: Transthoracic Echocardiogram Location: OP Height: 167.64 cm Weight: 74.84 kg BSA: 1.84 m2 Heart Rate: 71 bpm BP: 105 / 60 mmHg Supervisor Building Maintenance: JASPREET Schulte MD: Varsha Sinclair CAMPER ASSEMBLER Rn Relief Charge: Adan Moncada MD Symptoms: SOB R06.02 Study Quality: Fair ECG Rhythm: Sinus Conclusions: - Essentially normal study Findings Left Ventricle Normal left ventricular size, thickness, and systolic function. The visually estimated ejection fraction is between 55-60%. Spectral Doppler is indicative of a normal filling pattern. prominent LV false tendon noted. Peak GLS is -18.1%, within normal limits. Right Ventricle Normal right ventricular cavity size and systolic function. Atria Both atria are normal in size. Interatrial shunt cannot be excluded. Aortic Valve Normal aortic valve structure and function. There is no aortic valve stenosis. There is no aortic valve regurgitation. Mitral Valve Normal mitral valve structure and function. There is trace mitral valve regurgitation. There is no mitral valve stenosis. Pulmonic Valve The pulmonic valve is likely normal. Tricuspid Valve Normal tricuspid valve structure. There is trace tricuspid valve regurgitation. The right ventricular systolic pressure is normal. The right ventricular systolic pressure is 15 mmHg. Normal right atrial pressure. There is no evidence of pulmonary hypertension. Great Vessels All visible segments of the aorta are normal in size. The pulmonary artery was not well visualized. Venous The inferior vena cava is normal in size and collapses greater than 50% with inspiration. Pericardium/Pleural There is no evidence of pericardial effusion. Prior Study Comparison No prior study available for comparison. Measurements 2D Linear Measurements IVSd: 0.62 0.6-0.9/0.6-1.0 cm LVIDd: 5.00 3.9-5.3/4.2-5.9 cm LVIDd Index: 2.72 2.4-3.2/2.2-3.1 cm/m2 LVIDs: 2.87 2.0-3.6 cm LVPWd: 0.79 0.7-1.1 cm LA Diam: 3.30 2.7-3.8/3.0-4.0 cm LAIDs Index: 1.79 1.5-2.3 cm/m2 LV Mass: 143.65 67-162/88-224 g LV Mass Index: 78.07 43-95/49-115 g/m2 LVOT Diam: 2.10 3.0+(-)1.3 cm 2D Systolic Function EF 4C: 56.10 >55% EF 2C: 57.50 >55% EF BiP: 57.10 >55% Mitral Valve MV Pk E: 0.82 MV PK A: 0.66 MV Decel Time: 173.00 E/A: 1.20 E'Lateral: 13.50 E'Medial: 9.46 E/E' Med: 8.70 E/E' Lat: 6.10 PHT: 51.00 MVA PHT: 4.31 Decel Gordon: 4.74 Aortic Valve AoV Pk Fausto: 1.44 AoV Mn Fausto: 1.02 AoV VTI: 0.32 AoV Pk Grad: 8.00 Aov Mn Grad: 5.00 CHRISTINE Cont.VTI: 2.70 LVOT LVOT Pk Fausto: 1.18 LVOT Mn Fausto: 0.87 LVOT VTI: 0.25 LVOT Pk Grad: 6.00 LVOT Mn Grad: 3.00 LVOT Diam: 2.10 LVOT Area: 3.46 Diastolic Function MV Pk E: 0.82 MV Pk A: 0.66 E/A: 1.20 E'Medial: 9.46 E/E' Med: 8.70 E' Laterial: 13.50 E/E' Lat: 6.10 Right Ventricle TAPSE (mm): 24.80 TVS' Fausto: 10.60 Tricuspid Valve TR Pk Fausto: 1.70 TR Pk Grad: 12.00 RA Press: 3.00 RVSP: 15.00 Great Vessels Aorta Sinus of Valsalva: 3.00 2.0-3.5 cm Ao Asc: 2.70 2.1-3.4 cm Pulmonary Valve PV Pk Fausto: 0.92 Peak PV Grad: 3.00 Updated in Other Vendor System with Status of Final Adan Moncada MD electronically signed on 04/02/2023 5:47:23 PM with status of Final
== END ==
LOC: HO.CARD 07:40
PROVIDERS: PCP Physician Assistant Medical; Visit Provider Nurse Practitioner Gerontology
DX: R06.02 Shortness of breath (principal)
CPT/HCPCS: 93306; 93356

== ENCOUNTER → 2023-04-02 07:43 | Outpatient (BNV) | payer OTHER, SELFPAY | PROVIDERS: PCP Physician Assistant Medical; Visit Provider Internal Medicine Cardiovascular Disease | DX: R06.02 Shortness of breath (principal) | CPT/HCPCS: 93306 ==

== ENCOUNTER → 2023-04-23 10:45 | Outpatient (BNV) | payer OTHER, SELFPAY | PROVIDERS: PCP Physician Assistant Medical; Visit Provider Radiology Diagnostic Radiology | DX: Z12.31 Encounter for screening mammogram for malignant neoplasm of breast (principal) | CPT/HCPCS: 77063; 77067 ==

== ENCOUNTER 2023-04-23 10:49 | Outpatient (REF) | payer OTHER, SELFPAY | END 2023-04-23 10:50 | disposition home or self-care (01) | LOC: HO.MAMMO 10:49 | PROVIDERS: PCP Physician Assistant Medical; Visit Provider Physician Assistant Medical | DX: Z12.31 Encounter for screening mammogram for malignant neoplasm of breast (principal) | CPT/HCPCS: 77063; 77067 ==

== ENCOUNTER 2023-05-07 08:51 | Outpatient (REF) | payer OTHER, SELFPAY ==
--- NOTE | 2023-05-07 11:00 | PFT_ITS ---
Flows: FEV1: 109 % of predicted at 3.39 L FVC: 114 % of predicted at 4.40 L FEV1/FVC: 77 % Bronchodilator response: Absent Volumes: Total lung capacity: 103 % of predicted at 5.79 L Residual volume: 107 % of predicted at 1.57 L Slow vital capacity: 103 % of predicted at 4.22 L Expiratory reserve volume: 141 % of predicted at 1.77 L Diffusion capacity: Normal Impression: No obstructive or restrictive ventilatory defect. No bronchodilator response. Normal pulmonary function test. MTDD
== END 2023-05-07 08:52 | disposition home or self-care (01) ==
LOC: HO.RESP 08:51
PROVIDERS: PCP Internal Medicine; Visit Provider Nurse Practitioner Gerontology
DX: R06.02 Shortness of breath (principal); R68.89 Other general symptoms and signs
CPT/HCPCS: 94010; 94727; 94729

== ENCOUNTER → 2023-05-07 11:00 | Outpatient (BNV) | payer OTHER, SELFPAY | PROVIDERS: PCP Internal Medicine; Visit Provider Internal Medicine Pulmonary Disease | DX: J45.909 Unspecified asthma, uncomplicated (principal) | CPT/HCPCS: 94060; 94727; 94729 ==

== ENCOUNTER 2023-05-21 09:07 | Outpatient (AMB) | payer OTHER, SELFPAY ==
--- OUTSIDE RECORDS SUMMARY | 2023-05-21 09:08 | XMS_ITS | Continuity of Care Document ---
Author Name Unknown Organization [facility] Address [address] [place] [address]- Care Team Providers Care Dairy Associate Name Role Phone Sanaz Mckeon NP Primary Care Physician Encounter [facility] Date(s): 02/02/22 - 02/09/22 [facility] [address] [place] [address]- Encounter Diagnosis COVID-19(Discharge Diagnosis) - 02/02/22 Attending Physician: Not on Staff, Attending MD Referring Physician: Molly Bragg NP Allergies, Adverse Reactions, Alerts Substance Reaction Severity Status ciprofloxacin Generalized body aches Acti ve Shrimp Active Immunizations Given and Recorded Vaccine Date Status Refusal Reason tetanus-diphtheria toxoids (Td) 01/13/22 Given SARS-CoV-2 (COVID-19) mRNA-1273 vaccine 12/22/20 R ecorded SARS-CoV-2 (COVID-19) mRNA-1273 vaccine 11/24/20 R ecorded hepatitis B adult vaccine 06/29/11 Recorded hepatitis B adult vaccine 12/29/10 Recorded hepatitis B adult vaccine 11/29/10 Recorded tetanus/diphtheria/pertussis, acel(Tdap) 11/21/10 Recorded Measles/Mumps/Rubella Virus Vaccine 01/15/81 Recor ded Measles/Mumps/Rubella Virus Vaccine 03/30/80 Recor ded Measles/Mumps/Rubella Virus Vaccine 09/18/79 Recor ded Not Given Vaccine Date Status Refusal Reason Influenza Virus Vaccine (oldterm) 05/12/19 Not Giv en Parent Or Guardian Refuses Medications Apriso 0.375 g oral capsule, extended release 4 capsule = 1.5 Gm, By Mouth, Daily in AM, # 120 capsule, 0 Refills, Maintenance, 04/04/21 11:30:00EST, CR Capsule, Partial fill upon patient request if the prescription is for a schedule II opioid drug. Start Date: 04/04/21 Status: Ordered Collagen 0 Refills, Maintenance, 03/21/21 10:21:00 EST, Partial fill upon patient request if the prescription is for a schedule II opioid drug. Start Date: 03/21/21 Status: Ordered Compression Stockings See Instructions, # 1 each, Maintenance, surgical, calf length 20-30 mm Hg, 05/17/21 13:52:00 EST, Supply Start Date: 05/17/21 Status: Ordered Compression Stockings See Instructions, # 1 each, Refills 1, Tot. Refills 1, Maintenance, surgical, panty hose length 20-30 mm Hg, 05/17/21 13:53:00 EST, Supply Start Date: 05/17/21 Status: Ordered fluticasone 50 mcg/inh nasal spray See Instructions, USE 1 SPRAY IN EACH NOSTRIL TWICE A DAY, # 16 mL, 7 Refills, Maintenance, [facility], 30, USE 1 SPRAY IN EACH NOSTRIL TWICE A DAY, 166.6, cm, 05/12/19 15:01:00 EST, Height Start Date: 01/15/20 Status: Ordered Misc Rx Refills 0, Maintenance, 08/19/21 9:03:00 EDT, Supply Start Date: 08/19/21 Status: Ordered Multivitamin Daily, 0 Refills, Maintenance, 08/06/20 10:14:00 EDT, Partial fill upon patient request if the prescription is for a schedule II opioid drug. Start Date: 08/06/20 Status: Ordered ProAir HFA 90 mcg/inh inhalation aerosol with adapter 2, puffs, Inhalation, Every 6 hours, PRN, DAW1, # 8.5 Gm, Refills 0, Tot. Refills 0, Maintenance, 05/13/19 12:41:00 EST, Aerosol, Route to Pharmacy Electronically, [id number], [facility]/pharmacy #[id number], 166.6, cm, 05/12/19 15:01:00... Start Date: 05/13/19 Status: Ordered Probiotic Formula (Bacillus Coagulans) oral capsule 1 capsule, By Mouth, Daily, # 30 capsule, 0 Refills, Maintenance, 03/21/21 10:22:00 EST, Capsule, Partial fill upon patient request if the prescription is for a schedule II opioid drug. Start Date: 03/21/21 Status: Ordered Vitamin A = 50,000 International_Units, Intramuscular, Daily, 0 Refills, Maintenance, 05/23/21 10:07:00 EST, Partial fill upon patient request if the prescription is for a schedule II opioid drug. Start Date: 05/23/21 Status: Ordered Vitamin A = 2,400 mcg, 0 Refills, Maintenance, 04/04/21 11:19:00 EST, Partial fill upon patient request if the prescription is for a schedule II opioid drug. Start Date: 04/04/21 Status: Ordered Vitamin B Complex with C, Folic Acid, Iron and Probiotics oral capsule 1 capsule, By Mouth, Daily, 0 Refills, Maintenance, 08/06/20 12:11:00 EDT, Partial fill upon patient request if the prescription is for a schedule II opioid drug. Start Date: 08/06/20 Status: Ordered Vitamin B12 0 Refills, Maintenance, 06/08/17 10:16:15 Start Date: 06/08/17 Status: Ordered Vitamin D3 oral tablet 1 tablet = 400 International_Units, By Mouth, Daily, # 30 tablet, 0 Refills, Maintenance, 08/06/20 10:10:00 EDT, Tablet, Partial fill upon patient request if the prescription is for a schedule II opioid drug. Start Date: 08/06/20 Status: Ordered Problem List Condition Confirmation Course Effective Dates Status Health St atus Informant Breast cyst right via US 1 Confirmed Active Cold intolerance Confirmed Active Microscopic colitis Confirmed Active Normocytic anemia Confirmed Active Vaginal itching Confirmed Active Varicose vein of leg Confirmed Active 1Nov 2016 Diagnosis Diagnosis Type Effective Dates Health Status Clini vijaya Service Informant COVID-19 Discharge Diagnosis 02/02/22 Social History Social History Type Response Smoking Status Never smoker entered on: 03/14/17 Sex Patient Care team information Personnel Name: Mike FLORES, Sanaz Lizarraga Address: Address: [address] [place] [address] [place], [place] [address]
--- OUTSIDE RECORDS SUMMARY | 2023-05-21 09:08 | XMS_ITS | Continuity of Care Document ---
Author Name Unknown Organization [facility] Address [address] [place] [address]- Care Team Providers Care Front Office Clerk Name Role Phone Mike FLORES, Sanaz Ortiz Primary Care Physician [phone] Encounter [facility] Date(s): 05/21/20 - 06/20/20 [facility] [address] [place] [address]- Allergies, Adverse Reactions, Alerts Substance Reaction Severity Status ciprofloxacin Generalized body aches Acti ve Shrimp Active Immunizations Given and Recorded Vaccine Date Status Refusal Reason hepatitis B adult vaccine 06/29/11 Recorded hepatitis B adult vaccine 12/29/10 Recorded hepatitis B adult vaccine 11/29/10 Recorded tetanus/diphtheria/pertussis, acel(Tdap) 11/21/10 Recorded Measles/Mumps/Rubella Virus Vaccine 01/15/81 Recor ded Measles/Mumps/Rubella Virus Vaccine 03/30/80 Recor ded Not Given Vaccine Date Status Refusal Reason Influenza Virus Vaccine (oldterm) 05/12/19 Not Giv en Parent Or Guardian Refuses Medications fluticasone 50 mcg/inh nasal spray See Instructions, USE 1 SPRAY IN EACH NOSTRIL TWICE A DAY, # 16 mL, 7 Refills, Maintenance, [id number] , USE 1 SPRAY IN EACH NOSTRIL TWICE A DAY, 166.6, cm, 05/12/19 15:01:00 EST, Height Start Date: 01/15/20 Status: Ordered Magnesium Carbonate = 54 mg, By Mouth, Daily, 0 Refills, Maintenance, 04/03/19 10:48:00 EST Start Date: 04/03/19 Status: Ordered ProAir HFA 90 mcg/inh inhalation aerosol with adapter 2, puffs, Inhalation, Every 6 hours, PRN, DAW1, # 8.5 Gm, Refills 0, Tot. Refills 0, Maintenance, 05/13/19 12:41:00 EST, Aerosol, Route to Pharmacy Electronically, [id number], [facility]/pharmacy #[id number], 166.6, cm, 05/12/19 15:01:00... Start Date: 05/13/19 Status: Ordered yvette yvette, Refills 0, Maintenance, 03/27/18 10:48:53 EST, Compound Start Date: 03/27/18 Status: Ordered Vitamin B12 0 Refills, Maintenance, 06/08/17 10:16:15 Start Date: 06/08/17 Status: Ordered Voltaren 1% topical gel 1 application, Topically, 4 times a day, PRN Pain , Moderate, # 100 Gm, 0 Refills, Maintenance, 04/05/20 12:41:00 EST, Gel, [facility]/pharmacy #[id number], Partial fill upon patient request if the prescription is for a schedule II opioid drug., 1 application Topi... Start Date: 04/05/20 Status: Ordered Problem List Condition Effective Dates Status Health Status Inform ant Breast cyst right via US(Confirmed) 1 Active Microscopic colitis(Confirmed) Active 1Nov 2016 Social History Social History Type Response Smoking Status Never smoker entered on: 03/14/17 Sex
--- OUTSIDE RECORDS SUMMARY | 2023-05-21 09:08 | XMS_ITS | Continuity of Care Document ---
Author Name Unknown Organization [facility] Address [address] [place] [address]- Care Team Providers Care Group Home Paraprofessional Name Role Phone Mike FLORES, Sanaz Lizarraga Primary Care Physician Encounter [facility] Date(s): 01/13/22 - 01/20/22 [facility] [address] [place] [address]- Encounter Diagnosis Physical exam(Discharge Diagnosis) - 01/13/22 Vaginal itching(Discharge Diagnosis) - 01/13/22 Normocytic anemia(Discharge Diagnosis) - 01/13/22 Microscopic colitis(Discharge Diagnosis) - 01/13/22 Dyspnea(Discharge Diagnosis) - 01/13/22 Dermatitis of lip(Discharge Diagnosis) - 01/13/22 Attending Physician: Sanaz Mckeon NP Allergies, Adverse Reactions, Alerts Substance Reaction [...] AM, # 120 capsule, 0 Refills, Maintenance, 03/21/21 10:22:00EST, CR Capsule, Partial fill upon patient request if the prescription is for a schedule II opioid drug. Start Date: 03/21/21 Status: Ordered Apriso 0.375 g oral capsule, extended release [...] DAY, # 16 mL, 7 Refills, Maintenance, [facility], USE 1 SPRAY IN EACH NOSTRIL TWICE A DAY, 166.6, cm, 05/12/19 15:01:00 EST, Height Start Date: 01/15/20 Status: Ordered Magnesium Carbonate = 54 mg, By Mouth, Daily, 0 Refills, Maintenance, 04/03/19 10:48:00 EST Start Date: 04/03/19 Status: Ordered Misc Rx Refills 0, Maintenance, [...] 12:41:00 EST, Aerosol, Route to Pharmacy Electronically, [id number], [facility]/pharmacy #[id number], 166.6, cm, 05/12/19 15:01:00... Start Date: [...] a schedule II opioid drug. Start Date: 4/23/21 Status: Ordered Problem List Condition Confirmation Course Effective Dates Status Health St atus Informant Breast cyst right via US 1 Confirmed Active Cold intolerance Confirmed Active Microscopic colitis Confirmed Active Normocytic anemia Confirmed Active Vaginal itching Confirmed Active Varicose vein of leg Confirmed Active 1N2016 Diagnosis Diagnosis Type Effective Dates Health Status Clinical Service Informant Physical exam Discharge Diagnosis 01/13/22 Vaginal itching Discharge Diagnosis 01/13/22 Normocytic anemia Discharge Diagnosis 01/13/22 Microscopic colitis Discharge Diagnosis 01/13/22 Dyspnea Discharge Diagnosis 01/13/22 Dermatitis of lip Discharge Diagnosis 01/13/22 Vital Signs Most recent to oldest [Reference Range]: 1 Height 166.6 cm (01/13/22 11:31 AM) Weight 72.8 kg (01/13/22 11:31 AM) Oxygen Saturation [94-100 %] 98 % (01/13/22 11:31 AM) Pulse Rate [55-90 bpm] 73 bpm (01/13/22 11:31 AM) Body Mass Index [18.5-24.99 kg/m2] 26.23 kg/m2 *H* (01/13/22 11:31 AM) Blood Pressure [90-138/55-84 mm Hg] 102/ 62mm Hg (01/13/22 11:31 AM) Respiratory Rate [16-30 br/min] 16 br/mi n (01/13/22 11:31 AM) Blood pressure sites Arm, right (01/13/22 11:31 AM) Weight Obtained Via Standing scale (01/13/22 11:31 AM) Social History Social History Type Response Smoking Status Never smoker entered on: 03/14/17 Sex Patient Care team information Personnel Name: Mike FLORES, Sanaz Lizarraga Address: Address: [address] [place] [address] G[place], [place] [address]
--- OUTSIDE RECORDS SUMMARY | 2023-05-21 09:09 | XMS_ITS | Continuity of Care Document ---
Author Name Unknown Organization [facility] Address [address] [place] [address]- Care Team Providers Care Brick Tester Name Role Phone Mike FLORES, Sanaz Ortiz Primary Care Physician [phone] Encounter [facility] Date(s): 05/12/19 - 05/19/19 [facility] Adult [address] [place] [address]- [facility] Encounter Diagnosis Cough(Discharge Diagnosis) - 05/12/19 Nasal congestion(Discharge Diagnosis) - 05/12/19 Attending Physician: Jordi Monaco MD Allergies, Adverse Reactions, Alerts Substance Reaction Severity [...] Giv en Parent Or Guardian Refuses Medications Budesonide Refills 0, Maintenance, 03/27/18 10:40:38 EST Start Date: 03/27/18 Stop Date: 06/05/18 Status: Ordered cephalexin monohydrate 500 mg oral capsule 1 capsule = 500 mg, By Mouth, Every 12 hours, 0 Refills, Maintenance, 04/03/19 10:30:00 EST, Capsule Start Date: 04/03/19 Status: Ordered Flonase 50 mcg/inh nasal spray 1 sprays, Nares, Both, 2 times a day, # 16 Gm, 0 Refills, Maintenance, 05/12/19 15:22:00 EST, Rush Start Date: 05/12/19 Status: Ordered Magnesium Carbonate = 54 mg, By Mouth, Daily, 0 Refills, Maintenance, 04/03/19 10:48:00 EST Start Date: 04/03/19 Status: Ordered predniSONE 20 mg oral tablet 1 tablet = 20 mg, By Mouth, 2 times a day, for 5 days, # 10 tablet, 0 Refills, Acute 05/22/19 15:17:00 EST, 05/17/19 15:17:00 EST, Tablet, [facility]/pharmacy #[id number], 166.6, cm, 05/12/19 15:01:00 EST, Height Start Date: 05/17/19 Stop Date: 05/22/19 Status: Ordered ProAir HFA 90 mcg/inh inhalation aerosol with adapter 2, puffs, Inhalation, Every 6 hours, PRN, DAW1, # 8.5 Gm, Refills 0, Tot. Refills 0, Maintenance, 05/13/19 12:41:00 EST, Aerosol, Route to Pharmacy Electronically, [id number], [facility]/pharmacy #[id number], 166.6, cm, 05/12/19 15:01:00... Start Date: 05/13/19 Status: Ordered yvette parkmary, Refills 0, Maintenance, 03/27/18 10:48:53 EST, Compound Start Date: 03/27/18 Status: Ordered Tessalon Perles 100 mg oral capsule 1 capsule = 100 mg, By Mouth, 3 times a day, for 7 days, # 21 capsule, 0 Refills, Acute 05/26/19 15:17:00 EST, 05/19/19 15:17:00 EST, Capsule, [facility]/pharmacy #[id number], 166.6, cm, 05/12/19 15:01:00 EST, Height Start Date: 05/19/19 Stop Date: 05/26/19 Status: Ordered Vitamin B12 0 Refills, Maintenance, 06/08/17 10:16:15 Start Date: 06/08/17 Status: Ordered Problem List Condition Effective Dates Status Health Status Inform ant Breast cyst right via US(Confirmed) 1 Active Microscopic colitis(Confirmed) Active 1Nov 2016 Diagnosis Diagnosis Type Effective Dates Health Status Clinical Service Informant Cough Discharge Diagnosis 05/12/19 Nasal congestion Discharge Diagnosis 05/12/19 Vital Signs Most recent to oldest [Reference Range]: 1 Height 166.6 cm (05/12/19 3:01 PM) Weight 65.7 kg (05/12/19 3:01 PM) Oxygen Saturation [94-100 %] 99 % (05/12/19 3:01 PM) Pulse Rate [55-90 bpm] 81 bpm (05/12/19 3:01 PM) Body Mass Index [18.5-24.99] 23.67 (05/12/19 3:01 PM) Blood Pressure [90-138/55-84 mm Hg] 106/ 66mm Hg (05/12/19 3:01 PM) Respiratory Rate [16-30 br/min] 16 br/mi n (05/12/19 3:01 PM) Temperature [96.8-100.4 DegF] 98.2 DegF (05/12/19 3:01 PM) Mode of Delivery (Oxygen) Room air (05/12/19 3:01 PM) Blood pressure sites Arm, right (05/12/19 3:01 PM) Temperature Route Oral (05/12/19 3:01 PM) Weight Obtained Via Standing scale (05/12/19 3:01 PM) Social History Social History Type Response Smoking Status Never smoker entered on: 03/14/17 Sex
--- OUTSIDE RECORDS SUMMARY | 2023-05-21 09:09 | XMS_ITS | Continuity of Care Document ---
Author Name Unknown Organization [facility] Address [address] [place] [address]- Care Team Providers Care Vending Supervisor Name Role Phone Sanaz Mckeon NP Primary Care Physician [phone] Encounter [facility] Date(s): 04/05/20 - 04/12/20 [facility] Adult [address] [place] [address]- Encounter Diagnosis Swollen lymph nodes(Discharge Diagnosis) - 04/05/20 Lipid screening(Discharge Diagnosis) - 04/05/20 Pain, joint, shoulder region, left(Discharge Diagnosis) - 04/05/20 Anemia(Discharge Diagnosis) - 04/05/20 Attending Physician: Sanaz Mckeon NP Allergies, Adverse [...] DAY, # 16 mL, 7 Refills, Maintenance, [facility], 30, USE 1 SPRAY IN EACH NOSTRIL [...] 12:41:00 EST, Aerosol, Route to Pharmacy Electronically, [id number], [facility]/pharmacy #[id number], 166.6, cm, 05/12/19 15:01:00... Start Date: 05/13/19 Status: Ordered yvette yvette, Refills 0, Maintenance, 03/27/18 10:48:53 EST, Compound Start Date: 03/27/18 Status: Ordered Vitamin B12 0 Refills, Maintenance, 06/08/17 10:16:15 Start Date: 06/08/17 Status: Ordered Voltaren 1% topical gel 1 application, Topically, 4 times a day, PRN Pain , Moderate, # 100 Gm, 0 Refills, Maintenance, 04/05/20 12:41:00 EST, Gel, [id number], Partial fill upon patient request if the prescription is for a schedule II opioid drug., 1 application Topi... Start Date: 04/05/20 Status: Ordered Problem List Condition Effective Dates Status Health Status Inform ant Breast cyst right via US(Confirmed) 1 Active Microscopic colitis(Confirmed) Active 1N2016 Diagnosis Diagnosis Type Effective Dates Health Status Cl inical Service Informant Swollen lymph nodes Discharge Diagnosis 04/05/20 Lipid screening Discharge Diagnosis 04/05/20 Pain, joint, shoulder region, left Discharge Diagnosis 04/05/20 Anemia Discharge Diagnosis 04/05/20 Vital Signs Most recent to oldest [Reference Range]: 1 Height 166.6 cm (04/05/20 10:16 AM) Weight 65 kg (04/05/20 10:16 AM) Body Mass Index [18.5-24.99] 23.42 (04/05/20 10:16 AM) Social History Social History Type Response Smoking Status Never smoker entered on: 03/14/17 Sex
--- OUTSIDE RECORDS SUMMARY | 2023-05-21 09:09 | XMS_ITS | Continuity of Care Document ---
Author Name Unknown Organization [facility] Address [address] [place] [address]- Care Team Providers Care Wood Web Weaving Machine Operator Name Role Phone Mike FLORES, Sanaz Ortiz Primary Care Physician Encounter [facility] Date(s): 08/11/20 - 09/10/20 [facility] Adult [address] [place] [address]- Allergies, Adverse Reactions, Alerts Substance Reaction Severity [...] DAY, # 16 mL, 7 Refills, Maintenance, [facility], 30, USE 1 SPRAY IN EACH NOSTRIL TWICE A DAY, 166.6, cm, 05/12/19 15:01:00 EST, Height Start Date: 01/15/20 Status: Ordered Magnesium Carbonate = 54 mg, By Mouth, Daily, 0 Refills, Maintenance, 04/03/19 10:48:00 EST Start Date: 04/03/19 Status: Ordered Multivitamin Daily, 0 Refills, Maintenance, 08/06/20 10:14:00 EDT, Partial fill upon patient request if the prescription is for a schedule II opioid drug. Start Date: 08/06/20 Status: Ordered ProAir HFA 90 mcg/inh inhalation aerosol with adapter 2, puffs, Inhalation, Every 6 hours, PRN, DAW1, # 8.5 Gm, Refills 0, Tot. Refills 0, Maintenance, 05/13/19 12:41:00 EST, Aerosol, Route to Pharmacy Electronically, [id number], [facility]/pharmacy #[id number], 166.6, cm, 05/12/19 15:01:00... Start Date: 05/13/19 Status: Ordered Vitamin B Complex with C, [...] opioid drug. Start Date: 08/06/20 Status: Ordered Voltaren 1% topical gel 1 application, Topically, 4 times a day, PRN Pain , Moderate, # 100 Gm, 0 Refills, Maintenance, 04/05/20 12:41:00 EST, Gel, [facility]/pharmacy #[id number], Partial fill upon patient request if the prescription is for a schedule II opioid drug., 1 application Topi... Start Date: 04/05/20 Status: Ordered Problem List Condition Effective Dates Status Health Status Inform ant Breast cyst right via US(Confirmed) 1 Active Microscopic colitis(Confirmed) Active Normocytic anemia(Confirmed) Active Shoulder pain(Confirmed) Active 1Nov 2016 Social History Social History Type Response Smoking Status Never smoker entered on: 03/14/17 Sex
--- OUTSIDE RECORDS SUMMARY | 2023-05-21 09:09 | XMS_ITS | Continuity of Care Document ---
Author Name Unknown Organization [facility] Address [address] [place] [address]- Care Team Providers Care Bag Mender Name Role Phone Mike FLORES, Sanaz Ortiz Primary Care Physician Encounter [facility] Date(s): 08/06/20 - 09/05/20 [facility] Adult [address] [place] [address]- Attending Physician: Joselin Nguyễn Admitting Physician: AdmJoselin mario Referring Physician: AdmtrJoselin Allergies, Adverse Reactions, Alerts Substance Reaction Severity [...] DAY, # 16 mL, 7 Refills, Maintenance, [facility] , USE 1 SPRAY IN EACH NOSTRIL [...] 12:41:00 EST, Aerosol, Route to Pharmacy Electronically, [id number], [facility]/pharmacy #[id number], 166.6, cm, 05/12/19 15:01:00... Start Date: [...] 0 Refills, Maintenance, 04/05/20 12:41:00 EST, Gel, [facility]/pharmacy #[id number], Partial fill upon patient request if [...]
--- OUTSIDE RECORDS SUMMARY | 2023-05-21 09:09 | XMS_ITS | Continuity of Care Document ---
Author Name Unknown Organization [facility] Address [address] [place] [address]- Care Team Providers Care Calibrator Barometers Name Role Phone Verenice Kramer Primary Care Physician Encounter [facility] Date(s): 09/25/22 - 10/25/[address] [address] Attending Physician: Joselin Nguyễn Admitting Physician: AdmJoselin [...] opioid drug. Start Date: 03/21/21 Status: Ordered Digestive Enzymes/Hyoscyamine/Phenyltoloxamin 0 Refills, Maintenance, 06/19/22 15:21:00 EST, Partial fill upon patient request if the prescription is for a schedule II opioid drug. Start Date: 06/19/22 Status: Ordered Misc Rx Refills 0, Maintenance, 08/19/21 9:03:00 EDT, Supply Start Date: 08/19/21 Status: Ordered Multivitamin Daily, 0 Refills, Maintenance, 08/06/20 10:14:00 EDT, Partial fill upon patient request if the prescription is for a schedule II opioid drug. Start Date: 08/06/20 Status: Ordered Sabin-3 Fish Oil See Instructions, 1,000 mg By Mouth Daily, 0 Refills, Maintenance, 06/19/22 15:22:00 EST, Partial fill upon patient request if the prescription is for a schedule II opioid drug. Start Date: 06/19/22 Status: Ordered Probiotic Formula (Bacillus Coagulans) oral capsule 1 capsule, By Mouth, Daily, # 30 capsule, 0 Refills, Maintenance, 03/21/21 10:22:00 EST, Capsule, Partial fill upon patient request if the prescription is for a schedule II opioid drug. Start Date: 03/21/21 Status: Ordered Vitamin B Complex with C, [...] colitis Confirmed Active Normocytic anemia Confirmed Active Varicose vein of leg Confirmed Active 1Nov 2016 Social History Social History Type Response Smoking Status Never smoker entered on: 03/14/17 Sex Patient Care team information Care Team Personnel Name: Verenice Kramer Position: S PCO Associate Professional Member Role: PCP Address: Address: [address] [place] [address] [place] [address]- Care Team Related Persons Name: EBONIE GRANADOS
--- OUTSIDE RECORDS SUMMARY | 2023-05-21 09:09 | XMS_ITS | Continuity of Care Document ---
Author Name Unknown Organization [facility] Address [address] [place] [address]- Care Team Providers Care Certified Pharmacy Technician Name Role Phone Sanaz Mckeon NP Primary Care Physician [phone] Encounter [facility] [id number] Date(s): 02/02/22 - 03/04/22 [facility] [address] [place], [place] [address] Attending Physician: Joselin Nguyễn Admitting Physician: AdmJoselin mario Referring Physician: Admtr, ArLynette Allergies, Adverse Reactions, Alerts Substance Reaction Severity [...] DAY, # 16 mL, 7 Refills, Maintenance, [facility] , 30, USE 1 SPRAY IN EACH NOSTRIL [...] 12:41:00 EST, Aerosol, Route to Pharmacy Electronically, [id number], [facility]/pharmacy #[id number], 166.6, cm, 05/12/19 15:01:00... Start [...] Care team information Care Team Personnel Name: Sanaz Mckeon NP Position: [facility] PCO Associate Professional Member Role: PCP Address: Address: [facility] [place] [address]- Care Team Related Persons Name: EBONIE GRANADOS
--- OUTSIDE RECORDS SUMMARY | 2023-05-21 09:09 | XMS_ITS | Continuity of Care Document ---
Author Name Unknown Organization [facility] Address [address] [place] [address]- Care Team Providers Care Purchase Analyst Name Role Phone Mike FLORES, Sanaz Lizarraga Primary Care Physician [facility]counter [facility] Date(s): 12/23/21 - 01/22/22 [facility] [address] [place], [place] [address] Allergies, Adverse Reactions, Alerts Substance Reaction Severity [...] DAY, # 16 mL, 7 Refills, Maintenance, [facility] , USE 1 SPRAY IN EACH [...] 12:41:00 EST, Aerosol, Route to Pharmacy Electronically, [id number], [facility]/pharmacy #[id number], 166.6, cm, 05/12/19 15:01:00... Start [...] team information Personnel Name: Mike FLORES, Sanaz Elham Address: Address: [address] [place] [address] [place], [place] [address]
--- OUTSIDE RECORDS SUMMARY | 2023-05-21 09:09 | XMS_ITS | Continuity of Care Document ---
Author Name Unknown Organization [facility] Address [address] [place] [address]- Care Team Providers Care Sign Painter Apprentice Name Role Phone Mike FLORES, Sanaz Ortiz Primary Care Physician [place] [facility] [place] 08/26/21 [facility] [address] [place] [address]- Encounter Diagnosis Breast mass, right(Discharge Diagnosis) - 08/19/21 Attending Physician: Mickey LUCAS, Libertad Gonzales Allergies, Adverse Reactions, Alerts Substance Reaction Severity Status ciprofloxacin Generalized body aches Acti ve Shrimp Active Immunizations Given and Recorded Vaccine Date Status Refusal Reason SARS-CoV-2 (COVID-19) mRNA-1273 vaccine 12/22/20 R ecorded [...] DAY, # 16 mL, 7 Refills, Maintenance, [email or web address] , USE 1 SPRAY IN EACH [...] 12:41:00 EST, Aerosol, Route to Pharmacy Electronically, [id number], [facility]/pharmacy #1026, 166.6, cm, 05/12/19 15:01:00... Start [...] Date: 08/06/20 Status: Ordered Problem List Condition Effective Dates Status Health Status Inform ant Breast cyst right via US(Confirmed) 1 Active Cold intolerance(Confirmed) Active Microscopic colitis(Confirmed) Active Normocytic anemia(Confirmed) Active Vaginal itching(Confirmed) Active Varicose vein of leg(Confirmed) Active 1N2016 Diagnosis Diagnosis Type Effective Dates Health Status Cl inical Service Informant Breast mass, right Discharge Diagnosis 08/19/21 Vital Signs Most recent to oldest [Reference Range]: 1 Height 166.6 cm (08/19/21 9:02 AM) Weight 71.9 kg (08/19/21 9:02 AM) Pulse Rate [55-90 bpm] 92 bpm *H* (08/19/21 9:02 AM) Body Mass Index [18.5-24.99] 25.9 *H* (08/19/21 9:02 AM) Blood Pressure [90-138/55-84 mm Hg] 95/5 8mm Hg (08/19/21 9:02 AM) Blood pressure sites Arm, left (08/19/21 9:02 AM) Weight Obtained Via Standing scale (08/19/21 9:02 AM) Social History Social History Type Response Smoking Status Never smoker entered on: 03/14/17 Sex
--- OUTSIDE RECORDS SUMMARY | 2023-05-21 09:09 | XMS_ITS | Continuity of Care Document ---
Author Name Unknown Organization [facility] Address [address] [place] [address]- Care Team Providers Care Mines Inspector Name Role Phone Sanaz Mckeon NP Primary Care Physician [phone] Encounter [facility] [place] Date(s): 02/01/22 - 03/03/22 [facility] [address] [place] [address]- Allergies, Adverse Reactions, Alerts Substance Reaction Severity [...] DAY, # 16 mL, 7 Refills, Maintenance, [facility] STORE [address], 30, USE 1 SPRAY IN EACH NOSTRIL [...] 12:41:00 EST, Aerosol, Route to Pharmacy Electronically, [id number], [facility]/pharmacy #1026, 166.6, cm, 05/12/19 15:01:00... Start [...] Team Personnel Name: Sanaz Mckeon NP Position: [facility] Associate Professional Member Role: PCP Address: Address: [address] [facility] [place] [address]- Care Team Related Persons Name: EBONIE GRANADOS
--- OUTSIDE RECORDS SUMMARY | 2023-05-21 09:09 | XMS_ITS | Continuity of Care Document ---
Author Name Unknown Organization [facility] Address [address] [place] [address]- Care Team Providers Care Integrative Medicine Physician Name Role Phone Sanaz Mckeon NP Primary Care Physician [place] [facility] [place] 07/12/21 - 08/11/21 [facility] [address] [place], [place] [address] Attending Physician: AdmJoselin mario Admitting Physician: AdmtrJoselin Referring Physician: Admtr, Ar8 Allergies, Adverse Reactions, Alerts Substance Reaction Severity [...] 16 mL, 7 Refills, Maintenance, [facility] , , USE 1 SPRAY IN EACH NOSTRIL [...] 12:41:00 EST, Aerosol, Route to Pharmacy Electronically, [id number], [facility]/pharmacy #1026, 166.6, cm, 05/12/19 15:01:00... Start Date: [...] 0 Refills, Maintenance, 04/05/20 12:41:00 EST, Gel, [facility]/pharmacy #[id number], Partial fill upon patient request if the prescription is for a schedule II opioid drug., 1 application Topi... Start Date: 04/05/20 Status: Ordered Problem List Condition Effective Dates Status Health Status Inform ant Breast cyst right via US(Confirmed) 1 Active Cold intolerance(Confirmed) Active Microscopic colitis(Confirmed) Active Normocytic anemia(Confirmed) Active Vaginal itching(Confirmed) Active Varicose vein of leg(Confirmed) Active 1Nov 2016 Social History Social History Type Response Smoking Status Never smoker entered on: 03/14/17 Sex
--- OUTSIDE RECORDS SUMMARY | 2023-05-21 09:09 | XMS_ITS | Continuity of Care Document ---
Author Name Unknown Organization [facility] Address [address] [place] [address]- Care Team Providers Care Stereotyper Apprentice Name Role Phone Antonio FLORES, Shira Primary Care Physician [place] [facility] [place] 01/19/21 - 03/06/21 [facility] [address] [place] [address]- Attending Physician: Shira Alvarez NP Referring Physician: Carlos Enrique LUCAS, Jordi Bobby Allergies, Adverse Reactions, Alerts Substance Reaction Severity [...] DAY, # 16 mL, 7 Refills, Maintenance, [facility] , , USE 1 SPRAY IN [...] 12:41:00 EST, Aerosol, Route to Pharmacy Electronically, [id number], [facility]/pharmacy #1026, 166.6, cm, 05/12/19 15:01:00... Start [...] 0 Refills, Maintenance, 04/05/20 12:41:00 EST, Gel, [facility]/pharmacy #1026, Partial fill upon patient request [...]
--- OUTSIDE RECORDS SUMMARY | 2023-05-21 09:10 | XMS_ITS | Continuity of Care Document ---
Author Name Unknown Organization [facility] Address [address] [place] [address]- Care Team Providers Care Podiatric Aide Name Role Phone Mike FLORES, Sanaz Ortiz Primary Care Physician [phone] Encounter [facility] [place] Date(s): 12/26/19 - 01/25/20 [facility] [address] [place] [address]- [facility] Allergies, Adverse Reactions, Alerts Substance Reaction Severity [...] DAY, # 16 mL, 7 Refills, Maintenance, [facility] , USE 1 SPRAY IN EACH [...] 12:41:00 EST, Aerosol, Route to Pharmacy Electronically, [id number], [facility]/pharmacy #1026, 166.6, cm, 05/12/19 15:01:00... Start [...]
--- OUTSIDE RECORDS SUMMARY | 2023-05-21 09:10 | XMS_ITS | Continuity of Care Document ---
Author Name Unknown Organization [facility] Address [address] [place] [address]- Care Team Providers Care Dowel Inserting Machine Operator Name Role Phone Mike FLORES, Sanaz Ortiz Primary Care Physician [place] [facility] [place] 03/21/21 - 05/06/21 [facility] [address] [place] [address]- Attending Physician: Shira Alvarez NP Referring Physician: Jordi Monaco MD Allergies, Adverse Reactions, [...] opioid drug. Start Date: 03/21/21 Status: Ordered fluticasone 50 mcg/inh nasal spray See Instructions, USE 1 SPRAY IN EACH NOSTRIL TWICE A DAY, # 16 mL, 7 Refills, Maintenance, [facility] STORE [address], 30, USE 1 SPRAY IN EACH NOSTRIL [...] 12:41:00 EST, Aerosol, Route to Pharmacy Electronically, [id number], [facility]/pharmacy #1026, 166.6, cm, 05/12/19 15:01:00... Start Date: 05/13/19 Status: Ordered Probiotic Formula (Bacillus Coagulans) oral capsule 1 capsule, By Mouth, Daily, # 30 capsule, 0 Refills, Maintenance, 03/21/21 10:22:00 EST, Capsule, Partial fill upon patient request if the prescription is for a schedule II opioid drug. Start Date: 03/21/21 Status: Ordered Vitamin A = 2,400 mcg, [...] Active Varicose vein of leg(Confirmed) Active 1Nov 2017 Social History Social History Type Response Smoking Status Never smoker entered on: 03/14/17 Sex
--- OUTSIDE RECORDS SUMMARY | 2023-05-21 09:10 | XMS_ITS | Continuity of Care Document ---
Author Name Unknown Organization [facility] Address [address] [place] [address]- Care Team Providers Care Conservator Artifacts Name Role Phone Mike FLORES, Sanaz Ortiz Primary Care Physician [phone] [place] [facility] [place] 05/17/21 - 05/24/21 [facility] [address] [place] [address] Attending Physician: Nam Serrano MD Admitting Physician: Nam Serrano MD Referring Physician: Sanaz Mckeon NP Allergies, Adverse Reactions, [...] DAY, # 16 mL, 7 Refills, Maintenance, [facility] , USE 1 SPRAY IN EACH [...] 12:41:00 EST, Aerosol, Route to Pharmacy Electronically, [id number], [facility], 166.6, cm, 05/12/19 15:01:00... Start Date: [...] 0 Refills, Maintenance, 04/05/20 12:41:00 EST, Gel, [facility]/pharmacy #1026, Partial fill upon patient request [...]
--- OUTSIDE RECORDS SUMMARY | 2023-05-21 09:10 | XMS_ITS | Continuity of Care Document ---
Author Name Unknown Organization [facility] Address [address] [place] [address]- Care Team Providers Care Capsule Filler Name Role Phone Mike FLORES, Sanaz Ortiz Primary Care Physician Encounter [facility] Date(s): 08/17/21 - 09/16/21 [facility] [address] [place] [address]- Allergies, Adverse Reactions, Alerts Substance Reaction Severity [...] # 16 mL, 7 Refills, Maintenance, [facility] STORE [address], 30, USE 1 SPRAY IN EACH NOSTRIL [...] 12:41:00 EST, Aerosol, Route to Pharmacy Electronically, [id number], [facility]/pharmacy #1026, 166.6, cm, 05/12/19 15:01:00... [...]
--- OUTSIDE RECORDS SUMMARY | 2023-05-21 09:10 | XMS_ITS | Continuity of Care Document ---
Author Name Unknown Organization [facility] Address [address] [place] [address]- Care Team Providers Care Trench Shovel Operator Name Role Phone Sanaz Mckeon NP Primary Care Physician [phone] Encounter [facility] [place] Date(s): 01/13/22 - 02/12/22 [facility] [address] [place], [place] [address] Attending Physician: Joselin Nguyễn Admitting Physician: AdmJoselin [...] 7 Refills, Maintenance, [facility] , 30, USE 1 SPRAY [...] 12:41:00 EST, Aerosol, Route to Pharmacy Electronically, [id number], [facility]/pharmacy #1026, 166.6, cm, 05/12/19 15:01:00... [...] Sex Patient Care team information Personnel Name: Sanaz Mckeon NP Address: Address: [address] [place] [address] Gastro[address] [place], [place] [address]
--- OUTSIDE RECORDS SUMMARY | 2023-05-21 09:10 | XMS_ITS | Continuity of Care Document ---
Author Name Unknown Organization [facility] Address [address] [place] [address]- Care Team Providers Care Caddie Supervisor Name Role Phone Mike FLORES, Sanaz Ortiz Primary Care Physician En[place] [facility] [place] Date(s): 05/30/21 - 06/29/21 [facility] [address] [place], [place] [address] Allergies, Adverse Reactions, Alerts Substance Reaction Severity [...] DAY, # 16 mL, 7 Refills, Maintenance, [facility] , 30, USE 1 SPRAY [...] 12:41:00 EST, Aerosol, Route to Pharmacy Electronically, [id number], [facility]/pharmacy #1026, 166.6, cm, 05/12/19 15:01:00... Start [...]
--- OUTSIDE RECORDS SUMMARY | 2023-05-21 09:10 | XMS_ITS | Continuity of Care Document ---
Author Name Unknown Organization [facility] Address [address] [place] [address]- Care Team Providers Care Deodorizer Operator Name Role Phone Shira Alvarez NP Primary Care Physician [phone] [place] [facility] [place] 03/21/21 - 03/28/21 [facility] [address] [place] [address]- Encounter Diagnosis Microscopic colitis(Discharge Diagnosis) - 03/21/21 Mood swing(Discharge Diagnosis) - 03/21/21 Vaginal itching(Discharge Diagnosis) - 03/21/21 Cold intolerance(Discharge Diagnosis) - 03/21/21 Attending Physician: Shira Alvarez NP Allergies, Adverse Reactions, Alerts Substance Reaction [...] opioid drug. Start Date: 03/21/21 Status: Ordered Collagen 0 Refills, Maintenance, 03/21/21 10:21:00 EST, Partial fill upon patient request if the prescription is for a schedule II opioid drug. Start Date: 03/21/21 Status: Ordered fluticasone 50 mcg/inh nasal spray See Instructions, USE 1 SPRAY IN EACH NOSTRIL TWICE A DAY, # 16 mL, 7 Refills, Maintenance, [facility] STORE [address], 30, USE 1 SPRAY IN EACH NOSTRIL [...] 12:41:00 EST, Aerosol, Route to Pharmacy Electronically, [id number], [facility]/pharmacy #1026, 166.6, cm, 05/12/19 [...] Active Cold intolerance(Confirmed) Active Microscopic colitis(Confirmed) Active Mood swing(Confirmed) Active Normocytic anemia(Confirmed) Active Vaginal itching(Confirmed) Active Shoulder pain(Confirmed) Active 1N2016 Diagnosis Diagnosis Type Effective Dates Health Status Clinical Service Informant Microscopic colitis Discharge Diagnosis 03/21/21 Mood swing Discharge Diagnosis 03/21/21 Vaginal itching Discharge Diagnosis 03/21/21 Cold intolerance Discharge Diagnosis 03/21/21 Vital Signs Most recent to oldest [Reference Range]: 1 Height 166.6 cm (03/21/21 10:15 AM) Weight 71.5 kg (03/21/21 10:15 AM) Oxygen Saturation [94-100 %] 98 % (03/21/21 10:15 AM) Pulse Rate [55-90 bpm] 95 bpm *H* (03/21/21 10:15 AM) Body Mass Index [18.5-24.99] 25.76 *H* (03/21/21 10:15 AM) Blood Pressure [90-138/55-84 mm Hg] 111/ 52mm Hg (03/21/21 10:15 AM) Blood pressure sites Arm, right (03/21/21 10:15 AM) Social History Social History Type Response Smoking Status Never smoker entered on: 03/14/17 Sex
--- OUTSIDE RECORDS SUMMARY | 2023-05-21 09:10 | XMS_ITS | Continuity of Care Document ---
Author Name Unknown Organization [facility] Address [address] [place] [address]- Care Team Providers Care Systems Librarian Name Role Phone Sanaz Mckeon NP Primary Care Physician Encounter [facility] [place] Date(s): 12/19/19 - 12/26/19 [facility] [address] [place] [address]- [facility] Encounter Diagnosis Ear pain(Discharge Diagnosis) - 12/19/19 Left shoulder pain(Discharge Diagnosis) - 12/19/19 Otitis media with effusion(Discharge Diagnosis) - 12/19/19 Triceps tendinitis(Discharge Diagnosis) - 12/19/19 Swollen lymph nodes(Discharge Diagnosis) - 12/19/19 Attending Physician: Sanaz Mckeon NP Allergies, Adverse [...] Giv en Parent Or Guardian Refuses Medications Flonase 50 mcg/inh nasal spray 1 sprays, Nares, Both, 2 times a day, # 16 Gm, 0 Refills, Maintenance, 12/19/19 15:05:00 EDT, [place], [facility], 1 sprays Nares, Both 2 times a day, 166.6, cm, 05/12/19 15:01:00 EST, Height Start Date: 12/19/19 Status: Ordered Magnesium Carbonate = 54 mg, By Mouth, Daily, 0 Refills, Maintenance, 04/03/19 10:48:00 EST Start Date: 04/03/19 Status: Ordered ProAir HFA 90 mcg/inh inhalation aerosol with adapter 2, puffs, Inhalation, Every 6 hours, PRN, DAW1, # 8.5 Gm, Refills 0, Tot. Refills 0, Maintenance, 05/13/19 12:41:00 EST, Aerosol, Route to Pharmacy Electronically, [id number], [facility]/pharmacy #1026, 166.6, cm, 05/12/19 15:01:00... [...] Effective Dates Health Status Clinical Service Informant Ear pain Discharge Diagnosis 12/19/19 Left shoulder pain Discharge Diagnosis 12/19/19 Otitis media with effusion Discharge Diagnosis 12/19/19 Triceps tendinitis Discharge Diagnosis 12/19/19 Swollen lymph nodes Discharge Diagnosis 12/19/19 Social History Social History Type Response Smoking Status Never smoker entered on: 03/14/17 Sex
--- OUTSIDE RECORDS SUMMARY | 2023-05-21 09:10 | XMS_ITS | Continuity of Care Document ---
Author Name Unknown Organization [facility] Address [address] [place] [address]- Care Team Providers Care Chalk Tester Name Role Phone Sanaz Mckeon NP Primary Care Physician [phone] [place] [facility] [place](s[place] 04/04/21 - 04/11/21 [facility] [address] [place] [address]- [place] Encounter Diagnosis Microscopic colitis(Discharge Diagnosis) - 04/04/21 Breast cyst right via US(Discharge Diagnosis) - 04/04/21 Vaginal itching(Discharge Diagnosis) - 04/04/21 Cold intolerance(Discharge Diagnosis) - 04/04/21 Varicose vein of leg(Discharge Diagnosis) - 04/04/21 Attending Physician: Sanaz Mckeon NP Allergies, Adverse [...] DAY, # 16 mL, 7 Refills, Maintenance, [facility] STORE [address], 30, USE 1 SPRAY IN EACH NOSTRIL [...] 12:41:00 EST, Aerosol, Route to Pharmacy Electronically, [id number], [facility]/pharmacy #1026, 166.6, cm, 05/12/19 15:01:00... Start [...] Clinical Service Informant Microscopic colitis Discharge Diagnosis 04/04/21 Breast cyst right via US Discharge Diagnosis 04/04/21 Vaginal itching Discharge Diagnosis 04/04/21 Cold intolerance Discharge Diagnosis 04/04/21 Varicose vein of leg Discharge Diagnosis 04/04/21 Vital Signs Most recent to oldest [Reference Range]: 1 Height 166.6 cm (04/04/21 11:17 AM) Weight 70.8 kg (04/04/21 11:17 AM) Oxygen Saturation [94-100 %] 98 % (04/04/21 11:17 AM) Pulse Rate [55-90 bpm] 77 bpm (04/04/21 11:17 AM) Body Mass Index [18.5-24.99] 25.51 *H* (04/04/21 11:17 AM) Blood Pressure [90-138/55-84 mm Hg] 95/6 2mm Hg (04/04/21 11:17 AM) Respiratory Rate [16-30 br/min] 16 br/mi n (04/04/21 11:17 AM) Blood pressure sites Arm, left (04/04/21 11:17 AM) Weight Obtained Via Standing scale (04/04/21 11:17 AM) Social History Social History Type Response Smoking Status Never smoker entered on: 03/14/17 Sex
--- OUTSIDE RECORDS SUMMARY | 2023-05-21 09:10 | XMS_ITS | Continuity of Care Document ---
Author Name Unknown Organization [facility] Address [address] [place] [address]- Care Team Providers Care Steamfitter Apprentice Name Role Phone Mike FLORES, Sanaz Ortiz Primary Care Physician [phone] [facility] Date(s[facility] 04/04/21 - 05/04/21 [facility] [address] [place] [address]- Attending Physician: Joselin Nguyễn Admitting Physician: Joselin Nguyễn Referring Physician: Joselin Nguyễn Allergies, Adverse Reactions, Alerts Substance Reaction Severity [...] DAY, # 16 mL, 7 Refills, Maintenance, [facility] STORE [address], 30, USE 1 SPRAY IN EACH NOSTRIL [...] 12:41:00 EST, Aerosol, Route to Pharmacy Electronically, [id number], [facility]/pharmacy #1026, 166.6, cm, 05/12/19 15:01:00... Start Date: [...] 0 Refills, Maintenance, 04/05/20 12:41:00 EST, Gel, [facility]/pharmacy #1026, Partial fill upon patient request if [...]
--- OUTSIDE RECORDS SUMMARY | 2023-05-21 09:10 | XMS_ITS | Continuity of Care Document ---
Author Name Unknown Organization [facility] Address [address] [place] [address]- Care Team Providers Care Fuel Dock Attendant Name Role Phone Sanaz Mckeon NP Primary Care Physician [phone] [place] [facility] [place] 04/12/20 - 05/13/20 [facility] [address] [place] [address]- Attending Physician: Sanaz Mckeon NP Allergies, Adverse [...] DAY, # 16 mL, 7 Refills, Maintenance, [facility] , , USE 1 SPRAY IN [...] 12:41:00 EST, Aerosol, Route to Pharmacy Electronically, [id number], [facility]/pharmacy #1026, 166.6, cm, 05/12/19 15:01:00... [...] Refills, Maintenance, 04/05/20 12:41:00 EST, Gel, [facility]/pharmacy #1026, Partial fill upon patient request [...]
--- OUTSIDE RECORDS SUMMARY | 2023-05-21 09:10 | XMS_ITS | Continuity of Care Document ---
Author Name Unknown Organization [facility] Address [address] [place] [address]- Care Team Providers Care Kiln Door Builder Name Role Phone Verenice Kramer Primary Care Physician [place] [facility] [place] 09/05/22 - 01/03/[address] [address]- Attending Physician: Lucille Hutchinson MD Admitting Physician: Lucille Hutchinson MD Referring Physician: Verenice Kramer Allergies, Adverse Reactions, Alerts Substance Reaction Severity [...] ded Measles/Mumps/Rubella Virus Vaccine 09/18/79 Recor ded Medications Apriso 0.375 g oral capsule, extended [...] opioid drug. Start Date: 08/06/20 Status: Ordered [place]-3 Fish Oil See Instructions, 1,000 mg By [...] Associate Professional Member Role: PCP Address: Address: [facility] [place] [address]- [place] Care Team Related Persons Name: EBONIE GRANADOS
--- OUTSIDE RECORDS SUMMARY | 2023-05-21 09:10 | XMS_ITS | Continuity of Care Document ---
Author Name Unknown Organization [facility] Address [address] [place] [address]- Care Team Providers Care Log Rafter Name Role Phone Mike FLORES, Sanaz Ortiz Primary Care Physician [place] [facility] [place] Date(s): 07/12/21 - 07/19/21 [facility] [address] [place] [address] Attending Physician: Nam Serrano MD Admitting Physician: [...] DAY, # 16 mL, 7 Refills, Maintenance, [facility] , USE 1 SPRAY IN EACH [...] 12:41:00 EST, Aerosol, Route to Pharmacy Electronically, [id number], [facility], 166.6, cm, 05/12/19 15:01:00... Start [...]
--- OUTSIDE RECORDS SUMMARY | 2023-05-21 09:10 | XMS_ITS | Continuity of Care Document ---
Author Name Unknown Organization [facility] [place], [facility] Address [address] [place] [address]- Care Team Providers Care Maid Supervisor Name Role Phone Sanaz Mckeon NP Primary Care Physician [phone] [place] [facility] [place] - 04/10/19 [facility] [place] Adult [address] [place] [address]- [facility] Encounter Diagnosis Breast cyst right via US(Discharge Diagnosis) - 04/03/19 Fatigue(Discharge Diagnosis) - 04/03/19 Muscle cramps(Discharge Diagnosis) - 04/03/19 Attending Physician: Sanaz Mckeon NP Allergies, Adverse [...] ded Measles/Mumps/Rubella Virus Vaccine 03/30/80 Recor ded Medications Budesonide Refills 0, Maintenance, 03/27/18 10:40:38 EST Start Date: 03/27/18 Stop Date: 06/05/18 Status: Ordered cephalexin monohydrate 500 mg oral capsule 1 capsule = 500 mg, By Mouth, Every 12 hours, 0 Refills, Maintenance, 04/03/19 10:30:00 EST, Capsule Start Date: 04/03/19 Status: Ordered Magnesium Carbonate = 54 mg, By Mouth, Daily, 0 Refills, Maintenance, 04/03/19 10:48:00 EST Start Date: 04/03/19 Status: Ordered yvette yvette, Refills 0, Maintenance, 03/27/18 10:48:53 EST, Compound Start Date: 03/27/18 Status: Ordered Vitamin B12 0 Refills, Maintenance, 06/08/17 10:16:15 Start Date: 06/08/17 Status: Ordered Problem List Condition Effective Dates Status Health Status Inform ant Breast cyst right via US(Confirmed) 1 Active Microscopic colitis(Confirmed) Active 1N2016 Diagnosis Diagnosis Type Effective Dates Health Status Cl inical Service Informant Breast cyst right via US Discharge Diagnosis 04/03/19 Fatigue Discharge Diagnosis 04/03/19 Muscle cramps Discharge Diagnosis 04/03/19 Vital Signs Most recent to oldest [Reference Range]: 1 Height 166.6 cm (04/03/19 10:12 AM) Weight 67.8 kg (04/03/19 10:12 AM) Oxygen Saturation [94-100 %] 98 % (04/03/19 10:12 AM) Pulse Rate [55-90 bpm] 68 bpm (04/03/19 10:12 AM) Body Mass Index [18.5-24.99] 24.43 (04/03/19 10:12 AM) Blood Pressure [90-138/55-84 mm Hg] 98/6 4mm Hg (04/03/19 10:12 AM) Temperature [96.8-100.4 DegF] 97.8 DegF (04/03/19 10:12 AM) Blood pressure sites Arm, right (04/03/19 10:12 AM) Social History Social History Type Response Smoking Status Never smoker entered on: 03/14/17 Sex
--- OUTSIDE RECORDS SUMMARY | 2023-05-21 09:10 | XMS_ITS | Continuity of Care Document ---
Author Name Unknown Organization [facility] Address [address] [place] [address]- Care Team Providers Care Filtering Machine Tender Helper Name Role Phone Mike FLORES, Sanaz Ortiz Primary Care Physician En[place] [facility] [place] Date(s): 08/16/21 - 09/15/21 [facility] [address] [place], [place] [address] Attending Physician: Joselin Nguyễn Admitting [...] DAY, # 16 mL, 7 Refills, Maintenance, [facility] , USE 1 SPRAY IN EACH [...] 12:41:00 EST, Aerosol, Route to Pharmacy Electronically, [id number], [facility]/pharmacy #[id number], 166.6, cm, 05/12/19 15:01:00... Start [...]
--- OUTSIDE RECORDS SUMMARY | 2023-05-21 09:10 | XMS_ITS | Continuity of Care Document ---
Author Name Unknown Organization [facility] Address [address] [place] [address]- Care Team Providers Care Reserve Operator Name Role Phone Sanaz Mckeon NP Primary Care Physician [place] [facility] [place]/23/21 - 01/22/22 [facility] [address] [place], [place] [address] Allergies, Adverse Reactions, Alerts Substance Reaction Severity [...] # 16 mL, 7 Refills, Maintenance, [facility] , , USE 1 SPRAY [...] 12:41:00 EST, Aerosol, Route to Pharmacy Electronically, [id number], [facility]/pharmacy #[id number], 166.6, cm, 05/12/19 15:01:00... Start [...] Name: Mike FLORES, Sanaz Lizarraga Address: Address: [address] [place] [address] [place] [address]-
--- OUTSIDE RECORDS SUMMARY | 2023-05-21 09:10 | XMS_ITS | Continuity of Care Document ---
Author Name Unknown Organization [facility] Address [address] [place] [address]- Care Team Providers Care Fiber Optic Technician Name Role Phone Mike FLORES, Sanaz Ortiz Primary Care Physician [phone] Encounter [facility] [place] Date(s): 05/23/21 - 06/22/21 [facility] [address] [place] [address]- Attending Physician: Joselin Nguyễn Admitting Physician: Joselin Nguyễn Referring Physician: AdmtrJoselin Allergies, Adverse Reactions, Alerts [...] # 16 mL, 7 Refills, Maintenance, [facility] , USE 1 SPRAY IN [...] 12:41:00 EST, Aerosol, Route to Pharmacy Electronically, [id number], [facility]/pharmacy #[id number], 166.6, cm, 05/12/19 15:01:00... Start [...] Refills, Maintenance, 04/05/20 12:41:00 EST, Gel, [facility]/pharmacy #[id number], Partial fill upon patient request [...]
--- OUTSIDE RECORDS SUMMARY | 2023-05-21 09:10 | XMS_ITS | Continuity of Care Document ---
Author Name Unknown Organization [facility] Address [address] [place] [address]- Care Team Providers Care Restaurant Busser Name Role Phone Sanaz Mckeon NP Primary Care Physician Encounter [facility] Date(s): 03/23/21 - 04/22/21 [facility] [address] [place] [address] Allergies, Adverse Reactions, Alerts Substance Reaction Severity [...] DAY, # 16 mL, 7 Refills, Maintenance, [facility] [id number], 30, USE 1 SPRAY IN EACH NOSTRIL [...] 12:41:00 EST, Aerosol, Route to Pharmacy Electronically, [id number], [facility]/pharmacy #[id number], 166.6, cm, 05/12/19 15:01:00... Start Date: [...]
--- OUTSIDE RECORDS SUMMARY | 2023-05-21 09:10 | XMS_ITS | Continuity of Care Document ---
Author Name Unknown Organization [facility] Address [address] [place] [address]- Care Team Providers Care Doughnut Batter Mixer Name Role Phone Mike FLORES, Sanaz Ortiz Primary Care Physician En[place] [facility] [place] Date(s): 04/12/20 - 05/12/20 [facility] [address] [place] [address]- Allergies, Adverse Reactions, Alerts Substance Reaction Severity [...] DAY, # 16 mL, 7 Refills, Maintenance, [facility] , USE 1 SPRAY [...] 12:41:00 EST, Aerosol, Route to Pharmacy Electronically, [id number], [facility]/pharmacy #[id number], 166.6, cm, 05/12/19 15:01:00... Start Date: 05/13/19 Status: Ordered yvette yvette, Refills 0, Maintenance, 03/27/18 10:48:53 EST, Compound Start Date: 03/27/18 Status: Ordered Vitamin B12 0 Refills, Maintenance, 06/08/17 10:16:15 Start Date: 06/08/17 Status: Ordered Voltaren 1% topical gel 1 application, Topically, 4 times a day, PRN Pain , Moderate, # 100 Gm, 0 Refills, Maintenance, 04/05/20 12:41:00 EST, Gel, [facility]/pharmacy #[id number], Partial fill upon patient [...]
--- OUTSIDE RECORDS SUMMARY | 2023-05-21 09:10 | XMS_ITS | Continuity of Care Document ---
Author Name Unknown Organization [facility] Address [address] [place] [address]- Care Team Providers Care Bass Mechanism Maker Name Role Phone Mike FLORES, Sanaz Ortiz Primary Care Physician [phone] Encounter [facility] [place] Date(s): 08/19/21 - 09/18/21 [facility] [address] [place] [address]- Attending Physician: Joselin Nguyễn Admitting Physician: Joselin [...] DAY, # 16 mL, 7 Refills, Maintenance, [facility] , USE 1 SPRAY IN EACH [...] 12:41:00 EST, Aerosol, Route to Pharmacy Electronically, [id number], [facility]/pharmacy #[id number], 166.6, cm, 05/12/19 15:01:00... Start Date: [...]
--- OUTSIDE RECORDS SUMMARY | 2023-05-21 09:11 | XMS_ITS | Continuity of Care Document ---
Author Name Unknown Organization [facility] Address [address] [place] [address]- Care Team Providers Care Manhole Stripper Name Role Phone Mike FLORES, Sanaz Ortiz Primary Care Physician [phone] [place] [facility] [place]06[place]21 - 05/06/21 [facility] [address] [place] [address]- Attending Physician: Joselin Nguyễn Admitting Physician: Joselin [...] DAY, # 16 mL, 7 Refills, Maintenance, [facility] STORE [id number], 30, USE 1 SPRAY IN EACH NOSTRIL [...] 12:41:00 EST, Aerosol, Route to Pharmacy Electronically, [id number], [facility]/pharmacy #[id number], 166.6, cm, 05/12/19 15:01:00... [...]
--- OUTSIDE RECORDS SUMMARY | 2023-05-21 09:11 | XMS_ITS | Continuity of Care Document ---
Author Name Unknown Organization [facility] Address [address] [place] [address]- Care Team Providers Care Signal Tester Name Role Phone Mike FLORES, Sanaz Ortiz Primary Care Physician [phone] [place] [facility] [place] 04/05/20 - 05/05/20 [facility] Adult [address] [place] [address]- Allergies, Adverse Reactions, Alerts Substance Reaction Severity [...] # 16 mL, 7 Refills, Maintenance, [facility] , USE 1 SPRAY IN EACH [...] 12:41:00 EST, Aerosol, Route to Pharmacy Electronically, [id number], [facility]/pharmacy #[id number], 166.6, cm, 05/12/19 15:01:00... Start Date: 05/13/19 Status: Ordered yvette yvette, Refills 0, Maintenance, 03/27/18 10:48:53 EST, Compound Start Date: 03/27/18 Status: Ordered Vitamin B12 0 Refills, Maintenance, 06/08/17 10:16:15 Start Date: 06/08/17 Status: Ordered Voltaren 1% topical gel 1 application, Topically, 4 times a day, PRN Pain , Moderate, # 100 Gm, 0 Refills, Maintenance, 04/05/20 12:41:00 EST, Gel, [facility]/pharmacy #[id number], Partial fill upon patient request if [...]
--- OUTSIDE RECORDS SUMMARY | 2023-05-21 09:11 | XMS_ITS | Continuity of Care Document ---
Author Name Unknown Organization [facility] Address [address] [place] [address]- Care Team Providers Care Refrigerator Mover Name Role Phone Mike FLORES, Sanaz Ortiz Primary Care Physician Encounter [facility] [place] Date(s): 05/18/21 - 09/15/21 [facility] [address] [place] [address] Attending Physician: Nam Serrano MD Admitting Physician: Nam Serrano MD Referring Physician: Nam Serrano MD Allergies, Adverse Reactions, Alerts Substance Reaction [...] DAY, # 16 mL, 7 Refills, Maintenance, [facility] , USE 1 SPRAY IN EACH [...] 12:41:00 EST, Aerosol, Route to Pharmacy Electronically, [id number], [facility]/pharmacy #[id number], 166.6, cm, 05/12/19 15:01:00... Start [...]
--- OUTSIDE RECORDS SUMMARY | 2023-05-21 09:11 | XMS_ITS | Continuity of Care Document ---
Author Name Unknown Organization [facility] Address [address] [place] [address]- Care Team Providers Care Ceramic Coater Name Role Phone Sanaz Mckeon NP Primary Care Physician Encounter [facility] Date(s): 08/06/20 - 08/13/20 [facility] [place], [facility] [address] [place] [address]- [place] Encounter Diagnosis Normocytic anemia(Discharge Diagnosis) - 08/06/20 Microscopic colitis(Discharge Diagnosis) - 08/06/20 Pain in left shoulder(Discharge Diagnosis) - 08/06/20 Breast cyst right via US(Discharge Diagnosis) - 08/06/20 Routine health maintenance(Discharge Diagnosis) - 08/06/20 Attending Physician: Sanaz Mckeon NP Allergies, Adverse [...] mL, 7 Refills, Maintenance, [facility] , USE 1 SPRAY IN EACH [...] 12:41:00 EST, Aerosol, Route to Pharmacy Electronically, [id number], [facility]/pharmacy #[id number], 166.6, cm, 05/12/19 15:01:00... Start Date: [...] Refills, Maintenance, 04/05/20 12:41:00 EST, Gel, [facility]/pharmacy #[id number], Partial fill upon patient request if the prescription is for a schedule II opioid drug., 1 application Topi... Start Date: 04/05/20 Status: Ordered Problem List Condition Effective Dates Status Health Status Inform ant Breast cyst right via US(Confirmed) 1 Active Microscopic colitis(Confirmed) Active Normocytic anemia(Confirmed) Active Shoulder pain(Confirmed) Active 1N2016 Diagnosis Diagnosis Type Effective Dates Health Status Clinical Service Informant Normocytic anemia Discharge Diagnosis 08/06/20 Pain in left shoulder Discharge Diagnosis 08/06/20 Microscopic colitis Discharge Diagnosis 08/06/20 Routine health maintenance Discharge Diagnosis 08/06/20 Breast cyst right via US Discharge Diagnosis 08/06/20 Procedures Procedure Date Related Diagnosis Body Site Status Injection of steroid into sh oulder joint LEFT 2019 Completed Vital Signs Most recent to oldest [Reference Range]: 1 Height 166.6 cm (08/06/20 9:32 AM) Weight 65 kg (08/06/20 9:32 AM) Body Mass Index [18.5-24.99] 23.42 (08/06/20 9:32 AM) Social History Social History Type Response Smoking Status Never smoker entered on: 03/14/17 Sex
--- OUTSIDE RECORDS SUMMARY | 2023-05-21 09:11 | XMS_ITS | Continuity of Care Document ---
Author Name Unknown Organization [facility] Address [address] [place] [address]- Care Team Providers Care Asphalt Paver Operator Name Role Phone Sanaz Mckeon NP Primary Care Physician Encounter [facility] [place] Date(s): 01/06/20 - 05/05/20 [facility] [address] [place] [address]- Attending Physician: Sanaz Mckeon NP Allergies, Adverse [...] DAY, # 16 mL, 7 Refills, Maintenance, [facility] , , USE 1 SPRAY IN [...] 12:41:00 EST, Aerosol, Route to Pharmacy Electronically, [id number], [facility]/pharmacy #1026, 166.6, cm, 05/12/19 15:01:00... Start Date: 05/13/19 Status: Ordered yvette yvette, Refills 0, Maintenance, 03/27/18 10:48:53 EST, Compound Start Date: 03/27/18 Status: Ordered Vitamin B12 0 Refills, Maintenance, 06/08/17 10:16:15 Start Date: 06/08/17 Status: Ordered Voltaren 1% topical gel 1 application, Topically, 4 times a day, PRN Pain , Moderate, # 100 Gm, 0 Refills, Maintenance, 04/05/20 12:41:00 EST, Gel, [facility]/pharmacy #[id number], Partial fill upon patient [...]
--- OUTSIDE RECORDS SUMMARY | 2023-05-21 09:11 | XMS_ITS | Continuity of Care Document ---
Author Name Unknown Organization [facility] Address [address] [place] [address]- Care Team Providers Care Anthropology Lecturer Name Role Phone Mike FLORES, Sanaz Ortiz Primary Care Physician En[place] [facility] [place] Date(s): 05/12/19 - 05/22/19 [facility] [address] [place] [address]- [facility] Attending Physician: Joselin Nguyễn Admitting Physician: AdmJoselin [...] Gm, 0 Refills, Maintenance, 05/12/19 15:22:00 EST, [place] Start Date: 05/12/19 Status: Ordered Magnesium Carbonate = 54 mg, By Mouth, Daily, 0 Refills, Maintenance, 04/03/19 10:48:00 EST Start Date: 04/03/19 Status: Ordered ProAir HFA 90 mcg/inh inhalation aerosol with adapter 2, puffs, Inhalation, Every 6 hours, PRN, DAW1, # 8.5 Gm, Refills 0, Tot. Refills 0, Maintenance, 05/13/19 12:41:00 EST, Aerosol, Route to Pharmacy Electronically, [id number], [facility]/pharmacy #1026, 166.6, cm, 05/12/19 15:01:00... Start Date: 05/13/19 Status: Ordered yvette yvette, Refills 0, Maintenance, 03/27/18 10:48:53 EST, Compound Start Date: 03/27/18 Status: Ordered Tessalon Perles 100 mg oral capsule 1 capsule = 100 mg, By Mouth, 3 times a day, for 7 days, # 21 capsule, 0 Refills, Acute 05/26/19 15:17:00 EST, 05/19/19 15:17:00 EST, Capsule, [facility]/pharmacy #[id number], 166.6, cm, 05/12/19 15:01:00 EST, Height Start Date: 05/19/19 Stop Date: 05/26/19 Status: Ordered Vitamin B12 0 Refills, Maintenance, 06/08/17 10:16:15 Start Date: 06/08/17 Status: Ordered Problem List Condition Effective Dates Status Health Status Inform ant Breast cyst right via US(Confirmed) 1 Active Microscopic colitis(Confirmed) Active 1N2016 Social History Social History Type Response Smoking Status Never smoker entered on: 03/14/17 Sex
--- NOTE | 2023-05-21 09:20 | A.OFFVIS_ITS ---
Intake Vital Signs 05/21/23 09:25 Height 5 ft 6 in Weight 167 lb 4 oz BMI 27.0 BP 122/70 Blood Pressure Location Lt brachial Position Sitting Pulse 86 Pulse Source Pulse Oximeter Pulse Oximetry (%) 99 Oxygen Delivery Method Room Air Intake Visit Reasons: 4 mnts f/u for Sleep LVM Intake Note: Patient presents for 4 month f/u. Allergies cephalexin Allergy (Severe, Verified 05/21/23 09:32) Vomiting ciprofloxacin [Cipro] Adverse Reaction (Mild, Verified 02/12/23 11:13) side effects shrimp Allergy (Mild, Uncoded 02/12/23 11:13) Throat swells up, cant breathe HPI HPI Comments History of Present Illness Details 42 y/o female patient presents for follo w up of sleep study. The PSG sleep study result was normal, there was no evidence of sleep apnea or sleep related movement disorder. The AHI was 0/hr and oxygen alex was 94%. Pt reports she had pulmonary function test and echocardiogram done for shortness of breath, and the result was normal. Pt reports difficulty sleeping because her snores too loud. She feels much relaxed and sleep a little better with magnesium qHS. 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 Sexual orientation: Straight/Heterosexual Gender identity: Female Female Reproductive History Menstrual Age of Menarche: 10 Review of Systems Const All systems reviewed & are unremarkable except as noted in HPI and below Physical Exam Vital Signs: Last Vital Signs Pulse 86 05/21/23 09:25 BP 122/70 05/21/23 09:25 Pulse Ox 99 02/05/24 09:25 Oxygen Delivery Method Room Air 05/21/23 09:25 BMI result Body Mass Index 27.0 Const General: cooperative Nutritional Appearance: overweight Orientation/consciousness: patient oriented x3 Neck Neck: Yes full ROM and Yes supple Resp Effort & Inspection: normal respiratory effort and able to speak in complete sentences Neuro General: patient oriented x3 Assessment & Plan Assessment & Plan (1) Snoring: Code(s): R06.83 - Snoring (2) Daytime sleepiness: Code(s): R40.0 - Somnolence Plan Continue to practice sleep hygiene. Limit screen time before bedtime. Encouraged patient to have daily exercise, walking 30 min daily. She may try magnesium, calcium and vitamin D supplement qHS. Advised patient to try ear plug. Coding Level of Care Code Est Pt Level 3 (76495) Diagnoses Snoring R06.83 Daytime sleepiness R40.0
[2023-05-21 09:25] VITALS: BP 122/70; PULSE 86; O2SAT 99; BMI 27.0
== END 2023-05-21 09:54 | disposition home or self-care (01) ==
LOC: HO.HSMS 09:07
PROVIDERS: PCP Internal Medicine; Visit Provider Nurse Practitioner Family
DX: R06.83 Snoring (principal); R40.0 Somnolence
CPT/HCPCS: 99213

== ENCOUNTER → 2023-05-21 09:07 | Outpatient (BNVA) | payer OTHER, SELFPAY | PROVIDERS: PCP Internal Medicine; Visit Provider Nurse Practitioner Family ==

== ENCOUNTER 2023-06-30 08:56 | Outpatient (REF) | payer OTHER, SELFPAY ==
[2023-06-30 11:13] LABS: Vitamin D 25-OH Total 22.9 ng/mL (>30)
[2023-07-04 16:39] LABS: Vitamin A 35 mcg/dL (38-98)
== END 2023-06-30 08:57 | disposition home or self-care (01) ==
LOC: HO.LAB 08:56
PROVIDERS: PCP Physician Assistant Medical; Visit Provider Internal Medicine Gastroenterology
DX: E50.9 Vitamin A deficiency, unspecified (principal)
CPT/HCPCS: 36415; 82306; 84590

== ENCOUNTER 2023-07-06 09:39 | Outpatient (AMB) | payer OTHER, SELFPAY ==
--- NOTE | 2023-07-06 09:40 | A.OFFVIS_ITS ---
Intake Intake Visit Reasons: follow up labs Intake Note: Silvestre presents as a video call today. CC: Had Bx on her nail. She just would like results to her labs. Conservation Science Teacher Required: No Allergies cephalexin Allergy (Severe, Verified 07/06/23 09:41) Vomiting ciprofloxacin [Cipro] Adverse Reaction (Mild, Verified 07/06/23 09:41) side effects shrimp Allergy (Mild, Uncoded 07/06/23 09:41) Throat swells up, cant breathe HPI follow up labs HPI Details 42-year-old female called for follow-up for microscopic colitis. RECAP: Patient was initially diagnosed with MC in March on colonoscopy 2017, EGD with gastritis, small bowel bx normal Patient was initially started on budesonide 9 mg daily and was starting to reduce dosage to 6 mg but when she returned in May, still reported having ongoing diarrhea and was instructed to increase back to the original 9 mg daily. This was working well for her she was not having any issues as far as heartburn and reflux she was given course fo ABX in case of superimposed SIBO plan was also to consider trial of pepto or imodium to wean her from budesonide she was given rifaximin in case of SIBO and it made her feel improved she had also tried ibgard she was improved but still not 100% so given trial of bismuth 2 tab tid she did have low Vit A and on supplement, Zn nml and neg TTG RAST: allergy testing neg I added meslamine due to ongoing sx--apriso Vit A level was 62 after replacement--now went down 35 Vit D also low 22.7 INTERIM: compliant with vitamin supplements she is using digestive enzymes and probiotics she feels her reflux is much better she stopped apriso and feels good without it she has no more diarrhea, occ bloating, she felt abx last time helped this working remotely, Video: looks good, normal color, relaxed Assessments 1. Microscopic colitis - controlled, may have had SIBO in past as responded well to flagyl 2. Vit A deficiency, had been replaced, low dose 3000 units but gone down again PLAN: 1/ can double Vit A and D (increase this to 2000 units) supplements 2/ recheck levels in 3-6 months COUNT INCLUDES THE [facility] Medical History Microscopic colitis Surgical History H/O colonoscopy History of esophagogastroduodenoscopy (EGD) H/O foot surgery Family History Mother Hypotension Heart problem Diverticulosis Father HTN (hypertension) HX: breast cancer Hx of thyroid disease Brother Seizure Social History Household Members: Spouse Housing: Apartment Alcohol intake: current Alcohol intake frequency: does not drink Patient Tobacco Use Status: Never used Tobacco Current occupational status: employed 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 Sexual orientation: Straight/Heterosexual Gender identity: Female Female Reproductive History Menstrual Age of Menarche: 10 Assessment & Plan Assessment & Plan (1) Vitamin A deficiency: Code(s): E50.9 - Vitamin A deficiency, unspecified Plan: see above Telehealth Telehealth Location of provider rendering services: practice address Location of patient: address on file Patient Identification confirmed using: Name, : Yes Telehealth method: video Patient verbally consented to treatment: Yes Patient verbally consented to billing insurance company: Yes Patient informed of any privacy concerns related to visit: Yes Minutes spent on Phone/Video with Pt.: 9 Coding Level of Care Code Tele Est Pt Level 3 (40898) Diagnoses Vitamin A deficiency E50.9
== END 2023-07-06 13:01 | disposition home or self-care (01) ==
LOC: HO.HGI 09:39
PROVIDERS: PCP Physician Assistant Medical; Visit Provider Internal Medicine Gastroenterology
DX: E50.9 Vitamin A deficiency, unspecified (principal)
CPT/HCPCS: 99213

== ENCOUNTER → 2023-07-06 09:39 | Outpatient (BNVA) | payer OTHER, SELFPAY | PROVIDERS: PCP Physician Assistant Medical; Visit Provider Internal Medicine Gastroenterology ==

== ENCOUNTER 2023-12-24 10:50 | Outpatient (AMB) | payer OTHER, SELFPAY ==
--- NOTE | 2023-12-24 10:50 | MHC.OFFVIS ---
Intake Visit Reasons: 6 month follow up Intake Note: Pt presents to the office today as a telehealth for a 6 month follow up. Pt states she is feeling well and isn't having any more issues with diarrhe. Pt states her only concern is bloating especially after eating. Allergies cephalexin Allergy (Severe, Verified 12/24/23 10:50) Vomiting ciprofloxacin [Cipro] Adverse Reaction (Mild, Verified 12/24/23 10:50) side effects shrimp Allergy (Mild, Uncoded 12/24/23 10:50) Throat swells up, cant breathe HPI HPI 6 month follow up: Details: 42-year-old female called for follow-up for microscopic colitis. RECAP: Patient was initially diagnosed with MC in March on colonoscopy 2017, EGD with gastritis, small bowel bx normal Patient was initially started on budesonide 9 mg daily and was starting to reduce dosage to 6 mg but when she returned in May, still reported having ongoing diarrhea and was instructed to increase back to the original 9 mg daily. This was working well for her she was not having any issues as far as heartburn and reflux she was given course fo ABX in case of superimposed SIBO plan was also to consider trial of pepto or imodium to wean her from budesonide she was given rifaximin in case of SIBO and it made her feel improved she had also tried ibgard she was improved but still not 100% so given trial of bismuth 2 tab tid she did have low Vit A and on supplement, Zn nml and neg TTG RAST: allergy testing neg I added meslamine due to ongoing sx--apriso Vit A level was 62 after replacement--then went down 35 Vit D also low 22.7 INTERIM: no diarrhea no nausea or vomiting she still bloating no abdominal pain she has good appetite Video: looks good, normal color, relaxed Assessments 1. Microscopic colitis - controlled, may have had SIBO in past as responded well to flagyl 2. Vit A deficiency, had been replaced, low dose 3000 units but gone down again --on repalcement 3. blaoting, ?SIBO PLAN: 1/ she wants to try H breath test for SIBO--treat if positive 2/ recheck levels vit a, D 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 Sexual orientation: Straight/Heterosexual Gender identity: Female Female Reproductive History Menstrual Age of Menarche: 10 Telehealth Telehealth Telehealth Platform: [employer] Location of provider rendering services: practice address Location of patient: address on file Patient Identification confirmed using: Name, : Yes Telehealth method: video Patient verbally consented to treatment: Yes Patient verbally consented to billing insurance company: Yes Patient informed of any privacy concerns related to visit: Yes Minutes spent on Phone/Video with Pt.: 12 Assessment & Plan Assessment & Plan (1) Vitamin A deficiency: Code(s): E50.9 - Vitamin A deficiency, unspecified Category: Medical Plan: see above Orders: Orders Vitamin A 12/24/23 E50.9 - Vitamin A deficiency, unspecified Vitamin D 25-OH Total 12/24/23 E50.9 - Vitamin A deficiency, unspecified Coding Level of Care Code Tele Est Pt Level 3 (40999) Diagnoses Vitamin A deficiency E50.9
--- OUTSIDE RECORDS SUMMARY | 2023-12-24 10:52 | XMS_ITS | Continuity of Care Document ---
Author Organization [facility] Address [address] [place] [address]- Care Team Providers Care Desolderer Name Role Phone Verenice Kramer Primary Care Physician Encounter [place] Date(s): 05/24/23 - 06/23/[address] [address]- Attending Physician: Joselin Nguyễn Admitting Physician: AdmtrJoselin Referring Physician: Admtr, Ar8 [...] Measles/Mumps/Rubella Virus Vaccine 09/18/79 Recor ded Medications Collagen 0 Refills, Maintenance, 03/21/21 10:21:00 EST, [...] opioid drug. Start Date: 08/06/20 Status: Ordered [place]-3 Fish Oil See Instructions, 1,000 mg By [...] opioid drug. Start Date: 03/21/21 Status: Ordered Problem List Condition Confirmation Course [...] Associate Professional Member Role: PCP Address: Address: [address] [place] [address] [place] [address]- Care Team Related Persons Name: EBONIE GRANADOS
== END 2023-12-24 11:50 | disposition home or self-care (01) ==
LOC: HO.HGI 10:50
PROVIDERS: PCP Physician Assistant Medical; Visit Provider Internal Medicine Gastroenterology
DX: E50.9 Vitamin A deficiency, unspecified (principal)
CPT/HCPCS: 99213

== ENCOUNTER → 2023-12-24 10:50 | Outpatient (BNVA) | payer OTHER, SELFPAY | PROVIDERS: PCP Physician Assistant Medical; Visit Provider Internal Medicine Gastroenterology ==

== ENCOUNTER 2024-02-09 09:44 | Outpatient (REF) | payer OTHER, SELFPAY ==
[2024-02-09 11:15] LABS: Alanine Aminotransferase 15 U/L (0-31); Albumin Level 4.3 g/dL (3.5-5.0); Alkaline Phosphatase 44 U/L (39-117); Anion Gap 10 (12-20); Aspartate Amino Transferase 21 U/L (5-31); Bilirubin Total 0.4 mg/dL (0.0-1.0); Blood Urea Nitrogen 9 mg/dL (9-16); Calcium 9.2 mg/dL (8.4-10.2); Carbon Dioxide 27 mmol/L (22-29); Chloride 105 mmol/L (96-108); Cholesterol 197 mg/dL (<200); Estimated Glomerular Filt Rate > 60; Glucose Random 93 mg/dL (60-115); HDL Cholesterol 59 mg/dL (>40); LDL Cholesterol Calculated 123 mg/dL (<100); Potassium 3.9 mmol/L (3.3-5.1); Sodium 138 mmol/L (135-145); Total Protein 7.4 g/dL (6.5-8.0); Triglycerides 76 mg/dL (<150)
[2024-02-09 11:21] LABS: TSH reflex Free T4 1.63 uIU/mL (0.32-4.0)
[2024-02-09 11:22] LABS: Vitamin D 25-OH Total 27.7 ng/mL (>30)
[2024-02-17 17:23] LABS: Vitamin A 31 mcg/dL (38-98)
== END 2024-02-09 09:45 | disposition home or self-care (01) ==
LOC: HO.LAB 09:44
PROVIDERS: PCP Physician Assistant Medical; Referring Provider Physician Assistant Medical; Visit Provider Internal Medicine Gastroenterology
DX: L65.9 Nonscarring hair loss, unspecified (principal); Z13.6 Encounter for screening for cardiovascular disorders
CPT/HCPCS: 36415; 80053; 80061; 82306; 84443; 84590

== ENCOUNTER 2024-02-18 10:08 | Outpatient (AMB) | payer OTHER, SELFPAY ==
[2024-02-18 10:25] VITALS: BP 116/68; BMI 26.3
--- NOTE | 2024-02-18 10:25 | A.OFFVIS_ITS ---
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 Punch Operator Required: No Information Interpreted: clinical only Tablet Technician: Tablet Technician Present Allergies cephalexin Allergy (Severe, Verified 02/18/24 10:26) Vomiting ciprofloxacin [Cipro] Adverse Reaction (Mild, Verified 02/18/24 10:26) side effects shrimp Allergy (Mild, Uncoded 02/18/24 10:26) Throat swells up, cant breathe Medication List - Last Reconciled 02/18/24 by Sarah Garcia CNM belema root extract mg PO cholecalciferol (vitamin D3) (Vitamin D3) 25 mcg PO DAILY digestive enzymes 1 cap PO DAILY fluticasone propionate 50 mcg/actuation 1 spray intranasal BID lactobacillus combination no.4 (Probiotic) 3,000 mmu cells PO DAILY mesalamine ER (Apriso) 1.5 grams (4 x 0.375 gram) PO QAM multivitamin 1 tab PO DAILY salmon oil-omega-3 fatty acids 1,000-200 mg caps PO vitamin A 1 cap PO DAILY Is last menstrual period known: Yes Last menstrual period: 02/04/24 Do you need a note to return to daycare/school/sports/work: No HPI HPI 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 She asked her primary and her primary told her ask her press cutter provider. The days were not in any way related to her cycle and not premenstrual in timing. Patient is not on hormones and has not been for many years when she had some issues with colitis and she went off all medications at that time and prefers more natural substances. She uses her calendar and rhythm for control for her. She is and has no other major concerns other than discuss in symptoms of perimenopause were what she might or might to be too. She goes to the gym at least 3 times a week and does at least half an hour to go she is trying to eat well but she is not understanding why she is not losing weight. Again her primary care provider told her to check with me. She is 28 day cycle. She is due for her next mammogram thinning of the year. She had a UTI about 3 weeks ago and was after sex in she has been trying to figure out a pattern and did note that she thought any time she does not herself before she has sex she has the risk of developing UTI. 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 Sexual orientation: Straight/Heterosexual Gender identity: Female Female Reproductive History Menstrual Age of Menarche: 10 Duration of menses: <3 days Date of last menstrual period: 02/04/24 control method: none Total pregnancies: 0 Date of last pap smear: 05/04/18 (unknown date,negative,per patient) Date of Mammogram: 04/23/23 (negative) Physical Exam Vital Signs: Last Vital Signs BP 116/68 02/18/24 10:25 BMI result Body Mass Index 26.3 Const General: healthy appearing, comfortable, no acute distress, well developed and alert Nutritional Appearance: average body habitus Orientation/consciousness: patient oriented x3 Limitations: no limitations HEENT Head: Yes normocephalic Neck Neck: Yes normal visual inspection Chest Chest palpation & inspection: normal inspection of the chest Breast/axilla inspection: normal inspection of the breasts and normal inspection of the axillae Breast/axilla palpation: normal palpation of the breasts and normal palpation of the axillae Resp Effort & Inspection: normal respiratory effort GI Inspection: Yes normal to inspection, No Abdominal wall edema and No distended Palpation (GI): Soft to palpation and nontender Other: External vulva completely within it is and healthy estrogenized vagina pink and moist cervix nulliparous pink smooth no lesions Pap smear done in cultures done as well. Uterus is small slightly retroverted nontender adnexa nontender good very good muscle tone. Patient given visual tool of her anatomy including proximity Thera to vagina and how any friction/irritation during intercourse to the urethra can contribute to UTI and how to maneuver against that. General: Yes bladder normal to palpation External Female Exam: normal external appearance and normal appearance of the urethra Speculum Exam - Vagina: normal appearance of the vagina, normal palpation and normal vaginal discharge Speculum Exam - Cervix: normal appearance of the cervix, normal palpation and nontender Bimanual exam- vagina & uterus: normal bimanual exam, normal palpation, uterine size normal, bladder normal to palpation, consistency normal, normal palpation, uterine mobility normal, uterine shape normal, No Cervical tenderness present, non-tender and no cervical motion tenderness Bimanual Exam- Adnexa, other: normal adnexae, no masses, normal and No adnexal tenderness Neuro General: patient oriented x3 Assessment & Plan Assessment & Plan (1) Cervical cancer screening: Comment: Pap and HPV negative in 2019 and 2016. Next Pap with HPV co-testing is due 2023. Code(s): Z12.4 - Encounter for screening for malignant neoplasm of cervix Category: Medical (2) Uses fertility awareness method as primary control method: Code(s): Z78.9 - Other specified health status Category: Social Hx (3) Well woman exam with routine gynecological exam: Code(s): Z01.419 - Encounter for gynecological examination (general) (routine) without abnormal findings Category: Medical Plan -----Discussed in this visit the following: healthy balanced diet, regular and consistent exercise, getting recommended health screens, doing the best she can for her particular health concerns, kegel exercises, pap smear screening and followup recommendations, mammography screening and SBE, normal changes in cycles in her life stage--- .---Discussed normal changes that happen premenapausally, perimenapausally, and postmenopausally, and ways to handle them. Discussed the normal variation, and the range of experiences that women experience. Discussed nutrition, health, need for exercise, both weight-bearing and aerobic. Also discussed the normal changes that happen with vaginal mucosal thinning and sensitivity, and simple more natural ways of handling these challenges. Discussed the range of experiences great detail and what things can be attributed to menopause and what things are attributable to the very many other life changes that happen over time. Reviewed also the other life experience is that sometimes we may not be consciously aware of that may this is a really be experienced with a change in temperature or smelling of a particular food that brings about a memory that can contribute to changes. Coding Level of Care Code Est Pt Prev Care 40-64y(36921) Diagnoses Cervical cancer screening Z12.4 Uses fertility awareness method as primary control method Z78.9 Well woman exam with routine gynecological exam Z01.419
== END 2024-02-18 11:29 | disposition home or self-care (01) ==
LOC: HO.HWSM 10:09
PROVIDERS: PCP Physician Assistant Medical; Visit Provider Advanced Practice Midwife
DX: Z01.419 Encounter for gynecological examination (general) (routine) without abnormal findings (principal)
CPT/HCPCS: 99396

== ENCOUNTER 2024-02-18 10:08 | Outpatient (REF) | payer OTHER, SELFPAY ==
[2024-02-19 10:32] LABS: HPV 16,18/45 See PAP report
== END 2024-02-18 10:09 | disposition home or self-care (01) ==
LOC: HO.LNP 10:08
PROVIDERS: PCP Physician Assistant Medical; Visit Provider Advanced Practice Midwife
DX: Z01.419 Encounter for gynecological examination (general) (routine) without abnormal findings (principal); Z11.51 Encounter for screening for human papillomavirus (HPV)
CPT/HCPCS: 87624; 88175

== ENCOUNTER 2024-02-18 13:46 | Outpatient (REF) | payer OTHER, SELFPAY ==
[2024-02-19 05:49] LABS: CT PCR NOT DETECTED (Not Detect.); NG PCR NOT DETECTED (Not Detect.)
[2024-02-19 11:17] LABS: Bacterial Vaginosis PCR NEGATIVE (Negative); Candida Group PCR DETECTED (Not Detect); Candida glab krusei PCR NOT DETECTED (Not Detect); Trichomonas vaginalis PCR NOT DETECTED (Not Detect)
== END 2024-02-18 13:47 | disposition home or self-care (01) ==
LOC: HO.LAB 13:46
PROVIDERS: Visit Provider Advanced Practice Midwife
DX: N89.8 Other specified noninflammatory disorders of vagina (principal); Z20.2 Contact with and (suspected) exposure to infections with a predominantly sexual mode of transmission; Z01.419 Encounter for gynecological examination (general) (routine) without abnormal findings
CPT/HCPCS: 0352U; 87491; 87591

== ENCOUNTER 2024-06-23 10:10 | Outpatient (REF) | payer OTHER, SELFPAY ==
[2024-06-23 10:27] LABS: MANUAL DIFF FLAG NO
[2024-06-23 10:51] LABS: Basophils Percent Auto 0.6 % (0-2); Eosinophils Absolute Auto 0.1 X10*3/uL (0.0-0.4); Eosinophils Percent Auto 2.3 % (0-4); Hematocrit 36.7 % (37.0-47.0); Hemoglobin 12.1 g/dl (12.0-16.0); Imm Gran Abs Auto 0.02 X10*3/uL (0.00-0.03); Imm Gran Pct Auto 0.4 % (0.0-0.4); Lymphocytes Absolute Auto 1.8 X10*3/uL (1.2-4.9); Lymphocytes Percent Auto 33.5 % (20-40); Mean Corpuscular Hemoglobin 31.1 pg (27.0-33.0); Mean Corpuscular Volume 94.3 fL (80.0-98.0); Mean Platelet Volume 9.8 fL (9.4-12.3); Monocytes Absolute Auto 0.4 X10*3/uL (0.1-1.2); Monocytes Percent Auto 6.7 % (2-11); Neutrophils Percent Auto 56.5 % (45-73); Platelet Count 216 X10*3/uL (160-400); Red Blood Count 3.89 X10*6/uL (4.20-5.50); Red Cell Distribution Width 12.2 % (11.0-16.0); White Blood Count 5.3 X10*3/uL (4.8-10.8)
[2024-06-23 11:03] LABS: Appearance Urine Clear; Color Urine Yellow; Glucose Urine UA Negative (Negative); Leukocyte Esterase Urine Negative (Negative); Nitrite Urine Negative (Negative); PH 7.5 (5.0-9.0); Specific Gravity - Urine 1.015 (1.005-1.025); Urine Blood Negative (Negative); Urine Ketones Negative (Negative); Urine Protein Negative (Neg-Trace)
[2024-06-23 11:03] LABS: Estimated Average Glucose 111 mg/dL; Hemoglobin A1c % 5.5 % (<6.0)
[2024-06-23 11:59] LABS: Alanine Aminotransferase 13 U/L (0-31); Albumin Level 4.1 g/dL (3.5-5.0); Alkaline Phosphatase 41 U/L (39-117); Anion Gap 6 (12-20); Aspartate Amino Transferase 17 U/L (5-31); Bilirubin Total 0.3 mg/dL (0.0-1.0); Blood Urea Nitrogen 11 mg/dL (9-16); Calcium 8.6 mg/dL (8.4-10.2); Carbon Dioxide 26 mmol/L (22-29); Chloride 111 mmol/L (96-108); Cholesterol 167 mg/dL (<200); Estimated Glomerular Filt Rate > 60; Glucose Random 92 mg/dL (60-115); HDL Cholesterol 66 mg/dL (>40); LDL Cholesterol Calculated 92 mg/dL (<100); Potassium 4.1 mmol/L (3.3-5.1); Sodium 139 mmol/L (135-145); TSH reflex Free T4 1.98 uIU/mL (0.32-4.0); Total Protein 7.5 g/dL (6.5-8.0); Triglycerides 47 mg/dL (<150); Vitamin D 25-OH Total 25.6 ng/mL (>30)
== END 2024-06-23 10:11 | disposition home or self-care (01) ==
LOC: HO.LAB 10:10
PROVIDERS: PCP Physician Assistant Medical; Visit Provider Registered Nurse
DX: R42 Dizziness and giddiness (principal); R79.89 Other specified abnormal findings of blood chemistry; E55.9 Vitamin D deficiency, unspecified
CPT/HCPCS: 36415; 80053; 80061; 81003; 82306; 83036; 84443; 85025

== ENCOUNTER 2024-06-26 14:10 | Outpatient (REF) | payer OTHER, SELFPAY ==
--- NOTE | ~2024-06-26 | US_ITS ---
EXAMINATION: MM DIAGNOSTIC DIGITAL BREAST TOMOSYNTHESIS, BILATERAL Limited right breast ultrasound. CLINICAL INFORMATION: Palpable right breast lump upper outer breast. COMPARISON: Mammography: Comparison is made with relevant prior exams. TECHNIQUE: Digital breast mammography with tomosynthesis is performed in both the craniocaudal and mediolateral oblique views along with computer-aided detection (CAD). FINDINGS: The breasts are heterogeneously dense, which may obscure small masses (ACR BI-RADS breast composition Category c). Right: Palpable marker in the upper-outer breast with an underlying circumscribed oval mass. No suspicious calcifications or other abnormal findings. Targeted color Doppler ultrasound scanning in the area the patient's palpable lump at 9:00 6 cm from nipple demonstrates a minimally complicated cyst measuring 10 x 8 x 11 mm which correlates with the circumscribed oval mass and palpable lump. There is no internal vascular flow. The patient's had previous simple cysts in this area previously. Left: No suspicious masses calcifications or other abnormal findings. Results are provided to the patient at time of visit by the technologist. US/US breast RT limited mamm only IMPRESSION: Left: Negative. Right: Minimally complicated cyst on ultrasound correlating with the patient's palpable lump/mass. Benign. ASSESSMENT: BI-RADS BI-RADS 2 - Benign Findings RECOMMENDATION: 1 year F/U This patient's information was entered into a reminder system with a target due date for their next mammogram. Electronically signed by: Barbie Black DO 06/26/2024 03:01 PM EDT
== END 2024-06-26 14:11 | disposition home or self-care (01) ==
LOC: HO.MAMMO 14:10
PROVIDERS: PCP Internal Medicine; Visit Provider Registered Nurse
DX: N64.4 Mastodynia (principal); N63.15 Unspecified lump in the right breast, overlapping quadrants
CPT/HCPCS: 76642; 77062; 77066

== ENCOUNTER → 2024-06-26 14:30 | Outpatient (BNV) | payer OTHER, SELFPAY | PROVIDERS: PCP Internal Medicine; Visit Provider Internal Medicine | DX: N63.11 Unspecified lump in the right breast, upper outer quadrant (principal) | CPT/HCPCS: 76642; 77062; 77066 ==

== ENCOUNTER 2024-08-25 15:03 | Outpatient (REF) | payer OTHER, SELFPAY ==
--- NOTE | ~2024-08-25 | US_ITS ---
EXAMINATION: US EXTRACRANIAL CAROTID DUPLEX, BILATERAL CLINICAL INFORMATION: Dizziness. Giddiness. COMPARISON: None available. TECHNIQUE: Real-time ultrasound and Doppler techniques (integrating B-mode 2-D vascular images, Doppler spectral analysis and color-flow Doppler imaging) were utilized to interrogate the extracranial carotid arteries, the vertebral arteries and proximal subclavian arteries bilaterally. The degree of stenosis is determined by criteria similar to NASCET. FINDINGS: Right Side: 1. There is small calcified atherosclerotic plaque seen in the bifurcation/proximal ICA region. 2. The common carotid artery PSV proximally is 127 cm/s and distally 114 cm/s. 3. The proximal internal carotid artery velocities are 72 cm/s systolic and 21 cm/s diastolic. 4. The proximal external carotid artery PSV is 108 cm/s. 5. The vertebral artery shows antegrade flow. 6. The subclavian artery waveforms are triphasic.. Left Side: 1. There is no gross atherosclerotic plaque seen in the bifurcation/proximal ICA region. 2. The common carotid artery PSV proximally is 131 cm/s and distally 97 cm/s. 3. The proximal internal carotid artery velocities are 101 cm/s systolic and 24 cm/s diastolic. 4. The proximal external carotid artery PSV is 89 cm/s. 5. The vertebral artery shows antegrade flow. 6. The subclavian artery waveforms are triphasic. Questionable a prominent 2.5 cm lymph nodes adjacent to the right carotid bulb. US/US carotid duplex BI IMPRESSION: 1. RIGHT: Small calcified plaque. 0-49% stenosis by ultrasound criteria. 2. LEFT: No gross plaque. No hemodynamically significant stenosis by ultrasound criteria. Electronically signed by: George Long MD 08/25/2024 03:48 PM EDT
== END 2024-08-25 15:04 | disposition home or self-care (01) ==
LOC: HO.US 15:03
PROVIDERS: PCP Internal Medicine; Visit Provider Registered Nurse
DX: R42 Dizziness and giddiness (principal); R06.02 Shortness of breath
CPT/HCPCS: 93880

== ENCOUNTER → 2024-08-25 15:05 | Outpatient (BNV) | payer OTHER, SELFPAY | PROVIDERS: PCP Internal Medicine; Visit Provider Radiology Diagnostic Radiology | DX: R42 Dizziness and giddiness (principal); I65.21 Occlusion and stenosis of right carotid artery | CPT/HCPCS: 93880 ==

== ENCOUNTER 2024-09-15 17:49 | Outpatient (REF) | payer OTHER, SELFPAY ==
--- NOTE | ~2024-09-15 | MR_ITS ---
EXAMINATION: MR BRAIN WITHOUT IV CONTRAST HISTORY: Dizziness, vertigo TECHNIQUE: Sagittal T1, and axial T1, FLAIR, T2, gradient echo, and diffusion weighted MR images of the brain were obtained. COMPARISON: There are no prior studies available for comparison. FINDINGS: The brain parenchyma is unremarkable, demonstrating normal patel/white differentiation. No foci of abnormal signal intensity are identified. The ventricular system is normal in size and configuration. There is no mass effect or midline shift. No intra or extra-axial fluid collections are identified. There are no foci of restricted diffusion. Normal vascular flow voids are noted in the basilar and carotid arteries. There is a polyp versus mucous retention cyst in the right maxillary sinus. There is adenoidal hypertrophy. MR/MR head/brain wo con IMPRESSION: 1. Unremarkable MRI of the brain without contrast. 2. Adenoidal hypertrophy. Electronically signed by: Didier Zimmerman MD 09/16/2024 07:25 AM EDT
--- OUTSIDE RECORDS SUMMARY | 2024-09-15 17:53 | XMS_ITS ---
Author Name RUSTP Organization Unknown Encounters Encounter Type Encounter Reason Primary Diagnosis Location Date Ambulatory [facility] 07/16 Care Team Organization Name Specialty Phone Email Start Date End Da te [facility] 07/25/2024 [facility] 07/25/2024
== END 2024-09-15 17:50 | disposition home or self-care (01) ==
LOC: HO.MRI 17:49
PROVIDERS: PCP Internal Medicine; Visit Provider Registered Nurse
DX: R42 Dizziness and giddiness (principal)
CPT/HCPCS: 70551

== ENCOUNTER → 2024-09-15 18:04 | Outpatient (BNV) | payer OTHER, SELFPAY | PROVIDERS: PCP Internal Medicine; Visit Provider Radiology Diagnostic Radiology | DX: J35.2 Hypertrophy of adenoids (principal) | CPT/HCPCS: 70551 ==

== ENCOUNTER 2024-10-16 12:34 | Outpatient (REF) | payer OTHER, SELFPAY ==
--- NOTE | ~2024-10-16 | US_ITS ---
EXAMINATION: BILATERAL CAROTID ULTRASOUND WITH DOPPLER HISTORY: DIZZINESS AND GIDDINESS COMPARISON: Comparison is made with the prior examination dated 08/25/2024. TECHNIQUE: Real time and Color and Spectral doppler ultrasonography of the carotid and vertebral arteries was performed in multiple planes. FINDINGS: No significant plaque is identified. VERTEBRAL FLOW DIRECTION: Antegrade bilaterally. PEAK SYSTOLIC VELOCITIES (in cm/sec): RIGHT: CCA: Prox: 138 Dist: 116 ICA: Prox: 98.8 Mid: 93.2 Dist: 98.2 ICA/CCA Ratio: 0.72 ECA: 90.7 Peak ICA end diastolic velocity (EDV): 42.9 LEFT: CCA: Prox: 149 Dist: 102 ICA: Prox: 127 Mid: 90.4 Dist: 110.0 ICA/CCA Ratio: 0.85 ECA: 94.4 Peak ICA end diastolic velocity (EDV): 51.1 US/US carotid duplex BI IMPRESSION: Unremarkable examination. No significant stenosis. Electronically signed by: Didier Zimmerman MD 10/16/2024 03:33 PM EDT
--- OUTSIDE RECORDS SUMMARY | 2024-10-16 12:48 | XMS_ITS ---
Author Name CRISP Organization Unknown Encounters Encounter Type Encounter Reason Primary Diagnosis Location Date Ambulatory [facility] 07/16 Care Team Organization Name Specialty Phone Email Start Date End Da te [facility] 07/25/2024 [facility] 07/25/2024
== END 2024-10-16 12:35 | disposition home or self-care (01) ==
LOC: HO.US 12:34
PROVIDERS: PCP Internal Medicine; Visit Provider Registered Nurse
DX: R42 Dizziness and giddiness (principal); R06.02 Shortness of breath
CPT/HCPCS: 93880

== ENCOUNTER → 2024-10-16 12:53 | Outpatient (BNV) | payer OTHER, SELFPAY | PROVIDERS: PCP Internal Medicine; Visit Provider Radiology Diagnostic Radiology | DX: R42 Dizziness and giddiness (principal) | CPT/HCPCS: 93880 ==

== ENCOUNTER 2024-10-20 09:27 | Outpatient (AMB) | payer OTHER, SELFPAY ==
--- NOTE | 2024-10-20 09:27 | MHC.OFFVIS ---
Intake Visit Reasons: routine follow up Intake Note: Silvestre presents as a telehealth today for a routine. CC: Just wants to discuss the Vit D - her PCP ordered a higher dose and she has been taking it. Allergies cephalexin Allergy (Severe, Verified 10/20/24 09:28) Vomiting ciprofloxacin (Cipro) Adverse Reaction (Mild, Verified 10/20/24 09:28) side effects shrimp Allergy (Mild, Uncoded 10/20/24 09:28) Throat swells up, cant breathe HPI HPI routine follow up: Details: 43-year-old female here for follow-up for microscopic colitis. RECAP: Patient was initially diagnosed with MC in March on colonoscopy 2017, EGD with gastritis, small bowel bx normal Patient was initially started on budesonide 9 mg daily and was starting to reduce dosage to 6 mg but when she returned in May, still reported having ongoing diarrhea and was instructed to increase back to the original 9 mg daily. This was working well for her she was not having any issues as far as heartburn and reflux she was given course fo ABX in case of superimposed SIBO plan was also to consider trial of pepto or imodium to wean her from budesonide she was given rifaximin in case of SIBO and it made her feel improved she had also tried ibgard she was improved but still not 100% so given trial of bismuth 2 tab tid she did have low Vit A and on supplement, Zn nml and neg TTG RAST: allergy testing neg I added meslamine due to ongoing sx--apriso Vit A level was 62 after replacement--then went down 35 Vit D also low 22.7 INTERIM: doing well taking mesalamine, and she is happy with it no diarrhea no nausea or vomiting she still bloating no abdominal pain EXAM: GENERAL: The patient is well developed and nontoxic. VITAL SIGNS:see workflow HEENT: Nonicteric sclerae, PERRLA, EOMI. Oropharynx clear. Moist mucous membranes. Conjunctivae appear well perfused. No thyroid mass. CHEST: Chest wall is nontender. HEART: Regular rate and rhythm without murmurs. LUNGS: Clear to auscultation bilaterally. ABDOMEN: Soft, positive bowel sounds, nontender, no organomegaly.no flank tenderness SKIN: No rash, no excessive bruising, petechiae, or purpura. NEUROLOGIC: Cranial nerves II-XII intact without motor/sensory deficit. Psych: normal affect Assessments 1. Microscopic colitis - controlled, may have had SIBO in past as responded well to flagyl 2. Vit A deficiency, 3. bloating, ?SIBO PLAN: 1/ check CMP, cont mesalamine 2/ recheck levels vit a, D 3/ still to do SIBO test 4/ colonoscopy for screening , EGD for bloating --check lactase levels 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 Panel Today E46 - Unspecified protein-calorie malnutrition, E50.9 - Vitamin A deficiency, unspecified, K75.81 - Nonalcoholic steatohepatitis (BOWIE) Vitamin A Today E46 - Unspecified protein-calorie malnutrition, E50.9 - Vitamin A deficiency, unspecified Medications: New sodium,potassium,mag sulfates 17.5-3.13-1.6 gram (Suprep Bowel Prep Kit) DILUTE; drink 1/2 at 6-8 pm and half at 11 PM- 1AM 354 mL 0RF Coding Level of Care Code Est Pt Level 4 (54684) Diagnoses Malnutrition E46 Vitamin A deficiency E50.9
== END 2024-10-20 14:35 | disposition home or self-care (01) ==
PROVIDERS: PCP Internal Medicine; Visit Provider Internal Medicine Gastroenterology
DX: E46 Unspecified protein-calorie malnutrition (principal); E50.9 Vitamin A deficiency, unspecified
CPT/HCPCS: 99214

== ENCOUNTER 2024-10-20 09:27 | Outpatient (REF) | payer OTHER, SELFPAY ==
[2024-10-20 16:18] LABS: Alanine Aminotransferase 13 U/L (0-31); Albumin Level 4.5 g/dL (3.5-5.0); Alkaline Phosphatase 51 U/L (39-117); Anion Gap 11 (12-20); Aspartate Amino Transferase 20 U/L (5-31); Blood Urea Nitrogen 12 mg/dL (9-16); Calcium 9.0 mg/dL (8.4-10.2); Carbon Dioxide 27 mmol/L (22-29); Chloride 106 mmol/L (96-108); Estimated Glomerular Filt Rate > 60; Potassium 4.0 mmol/L (3.3-5.1); Sodium 140 mmol/L (135-145); Total Protein 7.2 g/dL (6.5-8.0)
== END 2024-10-20 09:28 | disposition home or self-care (01) ==
LOC: HO.LAB 09:27
PROVIDERS: PCP Internal Medicine; Visit Provider Internal Medicine Gastroenterology
DX: K52.839 Microscopic colitis, unspecified (principal); E50.9 Vitamin A deficiency, unspecified; E46 Unspecified protein-calorie malnutrition; K75.81 Nonalcoholic steatohepatitis (NASH); R14.0 Abdominal distension (gaseous)
CPT/HCPCS: 36415; 80053; 82306; 84590

== ENCOUNTER 2024-10-20 12:44 | Outpatient (RCR) | payer OTHER, SELFPAY | END 2024-10-20 14:10 | disposition home or self-care (01) | LOC: HO.PT 12:44 | PROVIDERS: PCP Physician Assistant Medical; Visit Provider Emergency Medicine | DX: M79.18 Myalgia, other site (principal) | CPT/HCPCS: 97110; 97162 ==

== ENCOUNTER 2025-01-20 07:30 | Day surgery (SDC) | payer OTHER, SELFPAY ==
--- NOTE | 2025-01-16 14:08 | HO.ANESPROP2 ---
Documented by User: Alyssa Isabel NP 01/16/25 14:10 HPI - Anesthesia Eval Consult details Narrative: 44yo F for Upper Endoscopy and Colonoscopy PMFSH Active Problems Active Problems: All Active Problems Snoring (Acute) Daytime sleepiness (Acute) Vitamin A deficiency (Acute) Cervical cancer screening (Acute) Uses fertility awareness method as primary control method (Acute) TSH (thyroid-stimulating hormone deficiency) (Acute) Malnutrition (Acute) Well woman exam with routine gynecological exam (Acute) Microscopic colitis (Acute) Past Medical History Medical History (Updated 02/21/24 @ 12:53 by Sarah Garcia CNM) Microscopic colitis Family History Family History Mother Hypotension Heart problem Diverticulosis Father HTN (hypertension) HX: breast cancer Hx of thyroid disease Brother Seizure Surgical History Surgical History (Updated 01/20/25 @ 08:05 by Tia Lopez RN) H/O colonoscopy History of esophagogastroduodenoscopy (EGD) H/O foot surgery Social History Social History Household Members: Spouse Housing: Apartment Alcohol intake: current Alcohol intake frequency: does not drink Patient Tobacco Use Status: Never used Tobacco Use of substances other than those prescribed or required for medical reasons: No Advance Directives: No Advance Directives Information Provided: Yes : No Poor oral hygiene: No Current occupational status: employed 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 Sexual orientation: Straight/Heterosexual Gender identity: Female Meds Allergies Allergy/AdvReac Type Severity Reaction Status Date / Time cephalexin Allergy Severe Vomiting Verified 10/20/24 09:28 ciprofloxacin (Cipro) AdvReac Mild side Verified 01/20/25 08:04 effects shrimp Allergy Mild Throat Uncoded 10/20/24 09:28 swells up, cant breathe Home Medications ?Medication ?Instructions ?Recorded ?Confirmed ?Last Taken ?Type belema root extract 300 mg mg PO 10/15/20 02/18/24 Unknown History capsule digestive enzymes 1 cap PO DAILY 10/15/20 02/18/24 Unknown History fluticasone propionate 50 1 spray intranasal BID 10/15/20 02/18/24 Unknown History mcg/actuation nasal spray,suspension lactobacillus combination no.4 3 3,000 mmu cells PO DAILY 10/15/20 02/18/24 Unknown History billion cell capsule (Probiotic) multivitamin 1 tab PO DAILY 10/15/20 02/18/24 Unknown History salmon oil-omega-3 fatty acids cap PO 07/17/22 02/18/24 Unknown History 1,000 mg-200 mg capsule albuterol sulfate 90 mcg/actuation 2 puff inhalation Q6H 10/20/24 Unknown History aerosol inhaler ergocalciferol (vitamin D2) 1,250 1,250 mcg PO QWEEK 10/20/24 Unknown History mcg (50,000 unit) capsule Assessment and Plan Assessment Anesthesia Assessment: Chart Reviewed Documented by User: Kral Gonsales MD 01/20/25 09:21 [facility] Past Medical History Medical History (Updated 02/21/24 @ 12:53 by Sarah Garcia CNM) Microscopic colitis Family History Family History Mother Hypotension Heart problem Diverticulosis Father HTN (hypertension) HX: breast cancer Hx of thyroid disease Brother Seizure Family history of problems with anesthesia: No Surgical History Surgical History (Updated 01/20/25 @ 08:05 by Tia Lopez RN) H/O colonoscopy History of esophagogastroduodenoscopy (EGD) H/O foot surgery History of Problems with Anesthesia: No Social History Social History Household Members: Spouse Housing: Apartment Alcohol intake: current Alcohol intake frequency: does not drink Patient Tobacco Use Status: Never used Tobacco Use of substances other than those prescribed or required for medical reasons: No Advance Directives: No Advance Directives Information Provided: Yes : No Poor oral hygiene: No Current occupational status: employed 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 Sexual orientation: Straight/Heterosexual Gender identity: Female Meds Allergies Allergy/AdvReac Type Severity Reaction Status Date / Time cephalexin Allergy Severe Vomiting Verified 10/20/24 09:28 ciprofloxacin (Cipro) AdvReac Mild side Verified 01/20/25 08:04 effects shrimp Allergy Mild Throat Uncoded 10/20/24 09:28 swells up, cant breathe Home Medications ?Medication ?Instructions ?Recorded ?Confirmed ?Last Taken ?Type eligio root extract 300 mg mg PO 10/15/20 02/18/24 Unknown History capsule digestive enzymes 1 cap PO DAILY 10/15/20 02/18/24 Unknown History fluticasone propionate 50 1 spray intranasal BID 10/15/20 02/18/24 Unknown History mcg/actuation nasal spray,suspension lactobacillus combination no.4 3 3,000 mmu cells PO DAILY 10/15/20 02/18/24 Unknown History billion cell capsule (Probiotic) multivitamin 1 tab PO DAILY 10/15/20 02/18/24 Unknown History salmon oil-omega-3 fatty acids cap PO 07/17/22 02/18/24 Unknown History 1,000 mg-200 mg capsule albuterol sulfate 90 mcg/actuation 2 puff inhalation Q6H 10/20/24 Unknown History aerosol inhaler ergocalciferol (vitamin D2) 1,250 1,250 mcg PO QWEEK 10/20/24 Unknown History mcg (50,000 unit) capsule Exam Airway Mallampati Class: II TM Dist: >3cm Neck ROM: Full Assessment and Plan Assessment Anesthesia Assessment: Anesthesia Plan Discussed Final Anesthetic Review Family History of Problems with Anesthesia: No History of Problems with Anesthesia: No NPO: Yes ASA Class: II Final Preanesthetic Review: No Changes in Pt Med Stat, Meds/Allgs Chart Reviewed, Consent Obtained/Reviewed and Anes Risks/Benef Reviewed Patient Risk: Low Procedure Risk: Low Anesthetic Plan Anesthetic Plan: MAC: Disposition: Standard PACU
[2025-01-20 07:59] VITALS: BMI 25.6
--- NOTE | 2025-01-20 08:14 | MHC.SHP ---
Pre-Procedural Eval Section A - 24 Hr Update-Section A only Date of Service: 01/20/25 Section B - Complete if H&P > 30 days Chief Complaint: Microscopic colitis, unspecified Relevant Family History (Specify if Yes): No Relevant Social History: None Present Medications: see Short Stay Collaborative assessment Medical History: Significant History ( Microscopic colitis) History of Previous Operations: Relevant previous surgery/procedure and date(s) (H/O colonoscopy History of esophagogastroduodenoscopy (EGD) H/O foot surgery) Allergies: Allergies Allergy/AdvReac Type Severity Reaction Status Date / Time cephalexin Allergy Severe Vomiting Verified 10/20/24 09:28 ciprofloxacin (Cipro) AdvReac Mild side Verified 01/20/25 08:04 effects shrimp Allergy Mild Throat Uncoded 10/20/24 09:28 swells up, cant breathe Review of Systems Sugical H&P ROS: Negative: Constitution, Cardiovascular, Respiratory, Neurological, Psychiatric, Hem-Onc, Allergic/Immunologic, Gastrointestinal, Genitourinary, Musculoskeletal, Integumentary, Endocrine and Eyes/Ears/Nose/Throat Exam Surgical H&P Exam: Normal: HEENT, Normal: Heart, Normal: Lungs, Normal: Extremities, Normal: Abdomen, Normal: Skin and Normal: Neurological Plan Diagnosis/Plan: Unchanged I have reviewed the history and physical and performed a pertinent physical examination on my patient. No changes have occurred unless specified. Time Spent With Patient Time: Total time managing care of this patient today ____ minutes.
[2025-01-20 08:15] LABS: UPreg QC Valid YES
[2025-01-20 08:17] VITALS: BP 105/48; PULSE 89; RESP 16; TEMP 36.8; O2SAT 99
[2025-01-20] MEDS: Lactated Ringers 1,000 ML 100 ML IVCONT (08:34)
--- NOTE | 2025-01-20 09:31 | P.OPN-COLO_ITS ---
Colonoscopy Operative Note Operative Note Date of Service: 01/20/25 Narrative: Operative Information Procedure Description: EGD, Colonoscopy Indication: bloating, hx of colitis Anesthesia: MAC FLEXIBLE TRANSORAL UPPER GASTROINTESTINAL ENDOSCOPY AND COLONOSCOPY PROCEDURE NOTE UPPER ENDOSCOPY Consent: Indications for the procedure and potential complications of bleeding, perforation, reaction to medications and missed diagnosis were discussed with the patient and informed consent was obtained. Instrument: Olympus GIF H 190 J mid size upper endoscope Monitoring: Vital signs and clinical assessment, continuous EKG monitoring, Pulse oximetry, Carbon Dioxide monitoring and blood pressure monitoring were done throughout the procedure. Procedure: The patient was placed in the left lateral decubitis position and pre-procedure medications were administered and a bite block was placed. The endoscope was inserted into the mouth and advanced under direct vision to the third part of duodenum. A careful inspection was made as the upper endoscope was withdrawn including a retroflexed examination of the proximal stomach; Findings and interventions are described below. Findings: Larynx:normal Esophagus: GE junction at 38 cm, diaphragm hiatus at 38 cm, lax LES, with mild esophagitis at GEJ, bx taken Stomach: Mild gastritis. Biopsies were obtained. Grade 2 flap valve on retroflexed examination of the cardia. Duodenum: Normal bulb and descending duodenum, bx taken Intervention: Biopsies as noted above, COLONOSCOPY Instrument: Olympus variable stiffness pediatric scope 190L Colonoscopy Monitoring: Vital signs and clinical assessment, continuous EKG monitoring, Pulse oximetry, Carbon Dioxide monitoring and blood pressure monitoring were done throughout the procedure. Colon withdrawal time was 10 minutes. Procedure: The patient was placed in the left lateral decubitis position and pre-procedure medications were administered. After a digital rectal examination of the ano-rectum, the video colonoscope was inserted into the rectum and advanced through the colon to the cecum/TI. The colonoscope was slowly withdrawn in a retrograde panoramic fashion and the colon mucosa was carefully examined including a retroflexed view of the rectum. Findings and interventions are described below. Procedure Difficulty:moderate Findings: Terminal Ileum-normal bx taken from right, left and rectum Cecum:normal Ascending Colon: normal Transverse Colon -normal Descending Colon:normal Sigmoid Colon: normal Rectum: Retroflexion with small internal hemorrhoids, grade I, granular appearing mucosa Anorectum - normal Colon preparation: [place] Bowel Preparation Scale Right colon; 3 Transverse colon: 3 Left colon; 3 (0 = Unprepared colon segment with mucosa not seen due to solid stool that cannot be cleared. 1 = Portion of mucosa of the colon segment seen, but other areas of the colon segment not well seen due to staining, residual stool and/or opaque liquid. 2 = Minor amount of residual staining, small fragments of stool and/or opaque liquid, but mucosa of colon segment seen well. 3 = Entire mucosa of colon segment seen well with no residual staining, small fragments of stool or opaque liquid) Impression and Post Procedure Diagnosis: Endoscopy Findings: lax LES midl esophagitis mild gastritis Colonoscopy Findings: internal hemorrhoids Plan: Await Pathology results Repeat Colonoscopy in 10 years or earlier if clinically indicated High fiber diet leaflet avoid straining at stool, epsom salts and sitz bath, anusol supps or cream Above findings were reviewed with the patient and relevant handouts were provided if indicated.
[2025-01-20 09:40] VITALS: BP 90/36; PULSE 72; RESP 14; TEMP 36.1; O2SAT 100
[2025-01-20 09:45] VITALS: BP 95/52; PULSE 78; RESP 14; TEMP 36.1; O2SAT 100
[2025-01-20 10:00] VITALS: BP 100/54; PULSE 78; RESP 14; TEMP 36.1; O2SAT 100
[2025-01-24 21:13] LABS: Lactase 7.0 (15.0-45.5); Maltase 47.2 (100.0-224.4); Palatinase 7.3 (5.0-26.3); Sucrase 11.0 (25.0-69.9)
== END 2025-01-20 11:03 | disposition home or self-care (01) ==
PROVIDERS: Nurse Practitioner; PCP Internal Medicine; Visit Provider Internal Medicine Gastroenterology
PROC: (CPT 45380; principal; 2025-01-20 09:10)
DX: K52.839 Microscopic colitis, unspecified (principal); K64.0 First degree hemorrhoids; R14.0 Abdominal distension (gaseous); K22.2 Esophageal obstruction; K22.89 Other specified disease of esophagus; K44.9 Diaphragmatic hernia without obstruction or gangrene; K29.60 Other gastritis without bleeding; K20.80 Other esophagitis without bleeding; K75.81 Nonalcoholic steatohepatitis (NASH); E46 Unspecified protein-calorie malnutrition; E55.9 Vitamin D deficiency, unspecified; E50.9 Vitamin A deficiency, unspecified; Z79.899 Other long term (current) drug therapy; Z88.1 Allergy status to other antibiotic agents; Z98.890 Other specified postprocedural states
CPT/HCPCS: 45380; 43239; 81025; 82657; 88305; 88313; 88342; J2003; J2704

== ENCOUNTER → 2025-01-20 07:30 | Outpatient (BNV) | payer OTHER, SELFPAY | PROVIDERS: PCP Internal Medicine; Visit Provider Internal Medicine Gastroenterology | DX: K52.9 Noninfective gastroenteritis and colitis, unspecified (principal); K20.90 Esophagitis, unspecified without bleeding; K29.70 Gastritis, unspecified, without bleeding; K64.0 First degree hemorrhoids; K63.89 Other specified diseases of intestine | CPT/HCPCS: 43239; 45380 ==

== ENCOUNTER 2025-02-10 10:10 | Outpatient (AMB) | payer OTHER, SELFPAY ==
--- OUTSIDE RECORDS SUMMARY | 2024-05-20 05:15 | XMS_ITS ---
Author Organization [facility] Address [address] [place] [address] Care Team Providers Care Tray Worker Name Role Phone Verenice Wright Primary Care Provider Unavailab Eli Freed Unavailable [phone] Georges Galeas [phone] Encounters Encounter Location Date Provider Diagnosis [address] [address] 05/20/2024 Georges Galeas Plan Of Treatment No Information Progress Notes * Irma DOVERdDOB: (44 yo F)Acc No.[id number]:05/20/2024 Progress Note Patient: Zaid ALANISQUEZJulitamegan Provider: Mirna Galeas D.P.M. :1980 A ge:43 Y S ex:Female Date:05/20/2024 Address:[address] [place] [address], [address] , [place], [place] Pcp:Verenice Wright Subjective: * Chief Complaints: * * Medical History: Objective: * Vitals: Assessment: Plan: * Treatment: * Images: * The named appointment provid er may or may not be the originator of this progress note, and it is not deemed complete until electronically signed by the appointment provider. Sign off status: Pending * Provider: Kiran WalkerPMorgan Date: 0 05/20/2024 Generated for Rafa hernandez/Vicente/eTchavasmitting on: 1 12:23 PM EDT
--- OUTSIDE RECORDS SUMMARY | 2024-05-23 06:30 | XMS_ITS ---
Author Organization [facility] Address [address] [place] [address] Care Team Providers Care Hand Candle Dipper Name Role Phone Verenice Wright Primary Care Provider Unavailab Eli Freed [phone] Encounters Encounter Location Date Provider Diagnosis [address] [address] 05/23/2024 Eli Wheeler Plan Of Treatment No Information Progress Notes * Irma DOVERdDOB: (44 yo F)Acc No.[id number]:05/23/2024 Progress Note Patient: Zaid ALANISSilvestre KAHN Provider: Everton Wheeler DPM :1980 A ge:43 Y S ex:Female Date:05/23/2024 Address:[address] [place] [address], [address] [place] [address] Pcp:Verenice Wright Subjective: * Chief Complaints: * * Medical History: Objective: * Vitals: Assessment: Plan: * Treatment: * Images: * The named appointment provid er may or may not be the originator of this progress note, and it is not deemed complete until electronically signed by the appointment provider. Sign off status: Pending * Provider: Everton Wheeler DPM Date: 0 05/23/2024 Generated for Rafa hernandez/Vicente/eTransmitting on: 12:23 PM EDT
--- OUTSIDE RECORDS SUMMARY | 2024-09-15 05:15 | XMS_ITS ---
Author Organization [facility] Address [address] [place] [address] Care Team Providers Care Screening Representative Name Role Phone Verenice Wright Primary Care Provider Unavailab Eli Freed [phone] Encounters Encounter Location Date Provider Diagnosis [facility] [address] [place] [address] 09/15/2024 Eli Wheeler Plan Of Treatment No Information Progress Notes * Sophy DOVEROB: (44 yo F)Acc No.[id number]:09/15/2024 Progress Note Patient: Zaid ALANISSilvestre KAHN Provider: Everton Wheeler DPM :1980 A ge:43 Y S ex:Female Date:09/15/2024 Address:[address] [place] [address] [place] [address] Pcp:Verenice Wright Subjective: * Chief Complaints: * * Medical History: Objective: * Vitals: Assessment: Plan: * Treatment: * Images: * The named appointment provid er may or may not be the originator of this progress note, and it is not deemed complete until electronically signed by the appointment provider. Sign off status: Pending * Provider: Everton Wheeler DPM Date: 0 09/15/2024 Generated for Rafa hernandez/Vicente/Andrewransmitting on: 12:23 PM EDT
--- OUTSIDE RECORDS SUMMARY | 2024-09-29 07:00 | XMS_ITS ---
Author Organization [facility] Address [address] [place] [address] Care Team Providers Care Skein Mercerizing Machine Operator Name Role Phone Verenice Wright Primary Care Provider Unavailab Eli Freed [phone] Encounters Encounter Location Date Provider Diagnosis [facility] [address] [place] [address] 09/29/2024 Eli Wheeler Plan Of Treatment No Information Progress Notes * Irma DOVERdDOB: (44 yo F)Acc No.[id number]:09/29/2024 Progress Notes Patient: Zaid ALANISSilvestre KAHN Provider: Everton Wheeler DPM :1980 A ge:43 Y S ex:Female Date:09/29/2024 Address:[address] [place] [address] [place] [address] Pcp:Verenice Wright Subjective: * Chief Complaints: * * Medical History: Objective: * Vitals: Assessment: Plan: * Treatment: * Images: * The named appointment provid er may or may not be the originator of this progress note, and it is not deemed complete until electronically signed by the appointment provider. Sign off status: Pending * Provider: Everton Wheeler DPM Date: 0 09/29/2024 Generated for Rafa hernandez/Vicente/eTransmitting on: 12:23 PM EDT
[2025-02-10 10:22] VITALS: BMI 26.0
--- NOTE | 2025-02-10 10:22 | A.OFFVIS_ITS ---
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 Pt reports looking information on the net related to diet restrictions, and working on making modifications by reducing on sugar intake and reading food labels Reports currently working on reducing added sugars and trying recipes with higher protein -flour alternatives BS Monitoring Most Recent Diabetes Results: Creatinine, (0.5-1.4) 0.82 mg/dL 10/20/24 BUN, (9-16) 12 mg/dL 10/20/24 Sodium, (135-145) 140 mmol/L 10/20/24 Potassium, (3.3-5.1) 4.0 mmol/L 10/20/24 Chloride, (96-108) 106 mmol/L 10/20/24 Carbon Dioxide, (22-29) 27 mmol/L 10/20/24 Calcium, (8.4-10.2) 9.0 mg/dL 10/20/24 AST, (5-31) 20 U/L 10/20/24 ALT, (0-31) 13 U/L 10/20/24 Total Protein, (6.5-8.0) 7.2 g/dL 10/20/24 Albumin, (3.5-5.0) 4.5 g/dL 10/20/24 NDX-Glngkdr-Mq.Jeor Equation Height: 5 ft 6 in Weight: 161 lb Resting Metabolic Rate: 1389.98 Calculated Activity Level: Mild Activity Calories Needed to Maintain Weight: 1911.22 Diagnosis Nutrition problem #1: food nutri know defi As related to (etiology) #1: diagnosis As evidenced by (sign/symptom) #1: knowledge deficit of diet [facility] Medical History (Updated 01/30/25 @ 14:06 by Rod Hall MD) Microscopic colitis Surgical History (Updated 01/20/25 @ 08:05 by Tia Lopez RN) H/O colonoscopy History of esophagogastroduodenoscopy (EGD) H/O foot surgery Family History Mother Hypotension Heart problem Diverticulosis Father HTN (hypertension) HX: breast cancer Hx of thyroid disease Brother Seizure Social History Household Members: Spouse Housing: Apartment Alcohol intake: current Alcohol intake frequency: does not drink Patient Tobacco Use Status: Never used Tobacco Current occupational status: employed 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 Sexual orientation: Straight/Heterosexual Gender identity: Female Female Reproductive History Menstrual Age of Menarche: 10 Assessment & Plan Assessment & Plan (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 Category: Medical Plan: current wt: 73 kg ( 03/10 ) est kcal needs as per MSJ: 1900 est protein needs as per 1-1.2 g/kg BW: 70-90 est fluid needs as per 30 ml/kg BW: 2200 Recommended fiber > 12 g /day and gradually increase up to 25-28 g /day or as tolerated NA: less than 2300mg/d Nutrition topics discussed : Reviewed (R), Pt verbalized understanding (V) , not applicable (N/A) R, : Healthy Plate Method Concept: Reducing portion of starches R: : choose no added sugar foods R: relationship of sucrose -isomaltase deficiency- food combination to reduce absorption and balancing meals R, V, N/A: Carbohydrates: food sources of carbohydrates, relationship of carbohydrates to blood glucose, fatty liver GI health. Recommended total amount of carbohydrates per meals and snack. Differences between simple carbohydrates and complex carbohydrates R, : Lean protein foods including vegan , vegetarian sources of protein. Benefits of protein (including but not limited to healing, nutritional value , benefits in weight loss, glucose control R, : Fats : Source of fats, benefits of fats. Difference between saturated and unsaturated fats. Saturated fats and its contribution to inflammation R, : Fiber: food sources and role of fiber in the diet (including but not limited to its role as a prebiotic, benefits in constipation, role in IBS , role in glucose c ontrol and cholesterol level) R, V, N/A: Hydration: role of hydration and prevention of dehydration or over hydration. Foods and water content. 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
--- OUTSIDE RECORDS SUMMARY | 2025-02-10 12:23 | XMS_ITS | Clinical Summary ---
Author Organization [facility] Address [address] [place] [address] Care Team Providers Care Data Collection Associate Name Role Phone Unavailable Primary Care Provider Unavailabl e Social History Tobacco Use Types Packs/Day Years Used Date Smoking Tobacco: Never Assessed Comments Unknown Sex and Gender Information Value Date Recorded Sex Assigned at Female 02/09/2025 2:34 PM EDT Legal Sex Female 2:25 PM EDT Gender Identity Female 02/09/2025 2:34 PM EDT Sexual Orientation Not on file Plan of Treatment Upcoming Encounters Date Type Department Care Team ([facility] Contact Info) Description 03/17/2025 8:45 AM EST Office Visit [facility] [address], [address] [place] [id number] Domonique Soto PA-C [address] [place] [id number] Health Maintenance Due Date Last Done Comments Hepatitis C Virus Screening 1978 HIV Screening 01/01/1992 DTaP/Tdap/Td Vaccines (1 - Tdap) 1997 Hepatitis B Vaccines (1 of 3 - 19+ 3-dose series) 1997 Pap Smear (Ages 21-65) 01/01/2000 Mammogram 2018 Colonoscopy 01/01/2024 Influenza Vaccine 11/14/2024 COVID-19 Vaccine (1 - 2023-2 5 season) 2024 Pneumococcal Vaccine: Pediat melinda (0-5 Years) and At-Risk Patients (6 to 49 Years) Aged Out No longer eligible b ased on patient's age to complete this topic Insurance [facility] HMO
--- OUTSIDE RECORDS SUMMARY | 2025-02-10 12:23 | XMS_ITS | Patient Health Record ---
[facility] Organization [facility] Address [address] [address] Care Team Providers Care Sales Planning Manager Name Role Phone Verenice Wright Primary Care Provider Unavailab lEi Freed Unavailable [phone] Georges Galeas Unavailable [phone] Allergies Allergen (clinical drug ingredient) Drug/Non Drug Allergy documented on EMR Reaction Allergy Type Onset Date Status ciprofloxacin Cipro Unknown Drug Allergy Act shahriar Keflex nausea and vomiting Drug Allergy Active shrimp allergenic extract Shrimp (Diagnostic) Unknown Drug Allergy Active Reason For Referral No Information Medications Medication SIG (Take, Route, Frequency, Duration) Notes Start Date End Date Status Doxycycline Hyclate 100 MG 1 capsule Orally Once a day; Duration: 10 days 04/03/2023 Not-Takin g Keflex 500 500 MG 1 capsule Orally kristopher ry 12 hrs; Duration: 10 day(s) 04/02/2023 Not-Taking Mesalamine Active Apriso 0.375 GM 4 capsules in the morning Orally Once a day Active Vitamin A 03/02/2023 Active Multivitamin - 1 tablet Orally Once a day; Duration: 30 day(s) 03/02/2023 Active Sulfamethoxazole-Trimetho prim 400-80 MG 1 tablet Orally Once a day; Duration: 10 day(s) 10/21/2024 Not-Taking Ciclopirox 8 % 1 application Externally Once a day; Duration: 30 05/27/2024 Active Vitamin D 13941 Active Ciclopirox 8 % 1 application thin f ilm topically to nails Externally Once a day; Duration: 30 days Active Digestive Enzyme - as directed Orally Active Probiotic Active Immunizations Vaccine Route Administration Date Status Comme nts Influenza Unknown 11/07/2024 Refused Influenza Unknown 11/07/2024 Refused Social History Tobacco Use: Social History Observation Description Date Details (start date - stop date) Never Smoker NA - NA Tobacco use other than smoking: Question Answer Notes Are you an other tobacco user? No Tobacco Control (Standard) Question Answer Notes Tobacco use: Nonsmoker Additional Findings: Tobacco non-user Current no nsmoker AUDIT-C (Standard) Question Answer Notes Did you have a drink containing alcohol in the p ast year? No Points 0 Interpretation Negative Problems Problem Type SNOMED Code ICD Code Onset Dates Problem Status W/U Status Risk Notes Problem Ulcer of toe of right foot (disorder) (34199660475 259863) Skin ulcer of toe of right foot, limited to breakdown of skin (L97.511) Active confirmed Vital Signs Blood pressure diastolic 77 mm Hg 12/08/2024 Height 5ft6in in 12/08/2024 Blood pressure systolic 110 mm Hg 12/08/2024 Weight 165 lbs 12/08/2024 BMI 26.63 kg/m2 12/08/2024 Procedures Procedure Date Ordered Date Performed Result Body Sit e 16571-BMIRRWJ NAIL, 1-5 05/27/2024 N/A 09185-XJK 10/21/2024 N/A 91637-WTBKHHU SKIN/TISSUE 11/07/2024 N/A 61903- Debride <25 sq cm 12/08/2024 N/A Encounters Encounter Location Date Provider Diagnosis [address] [address] 05/27/2024 Eli Black Ingrown nail L60.0 ; Onychomycosis B35.1 ; Pain in right toe(s) M79.674 and Pain in left toe(s) M79.[address] [address] 10/21/2024 Eli Black Ingrown nail L60.[address] [address] 11/07/2024 Eli Black Skin ulcer of toe of right foot with fat layer exposed L97.512 [facility] [address] [place] [address] 12/08/2024 Eli Black Skin ulcer of toe of right foot, limited to breakdown of skin L97.511 ; Pain in right toe(s) M79.674 ; Onychomycosis B35.1 and Pain in left toe(s) M79.[address] [facility] [address] 05/19/2024 Eli Black [facility] [address] [address] 09/12/2024 Lei Black Assessments Encounter Date Diagnosis (ICD Code) Assessment Notes Treatment Notes Treatment Clinical Notes Section Notes 05/27/2024 Ingrown nail (ICD-10 - L60.0) 05/27/2024 Onychomycosis (ICD-10 - B35.1) 10/21/2024 Ingrown nail (ICD-10 - L60.0) 12/08/2024 Pain in right toe(s) (ICD-10 - M79.674) 12/08/2024 Skin ulcer of toe of right foot, limited to breakdown of skin (ICD-10 - L97.511) 05/27/2024 Pain in right toe(s) (ICD-10 - M79.674) 12/08/2024 Onychomycosis (ICD-10 - B35.1) 11/07/2024 Skin ulcer of toe of right foot with fat layer exposed (ICD-10 - L97.512) Patient Educated with: WOUND CARE INSTRUCTIONS.p df (WOUND CARE INSTRUCTIONS.p df) 12/08/2024 Pain in left toe(s) (ICD-10 - M79.675) 05/27/2024 Pain in left toe(s) (ICD-10 - M79.675) 11/07/2024 Other 12/08/2024 Other Plan Of Treatment Pending Test Test Name Order Date [id number] NAIL, 1-5 05/27/2024 61071-Qiecuypw Plate 07/31/2023 95435-LEL 10/21/2024 13226- Debride <25 sq cm 08/20/2023 19605- Debride <25 sq cm 12/08/2024 39526-ZYZZVXV SKIN/TISSUE 11/07/2024 Nail Panel 03/13/2023 Insurance Providers Payer Name Payer Address Payer Phone Subscriber Number Group Number Insured Name Patient Relationship to Insured Coverage Start Date Coverage End Date [employer] Benefits [address] [address] [place] [address] [id number] Silvestre Rangel Self - patient is the insured Medical (General) History Medical History History ICD Code Anxiety asthma covid-19 Crohns disease Psoriasis Reflux ( GERD) Measles Chicken pox Ingrown nail L60.0 Surgical History Surgery Date(Month/Year) hallux 2000 mammogram 04/2023
[2025-02-17 19:19] VITALS: BMI 26.0
== END 2025-02-10 10:54 | disposition home or self-care (01) ==
LOC: HO.ENCR 10:11
PROVIDERS: PCP Internal Medicine; Visit Provider Dietitian, Registered
DX: E74.31 Sucrase-isomaltase deficiency (principal)

== ENCOUNTER → 2025-02-10 10:10 | Outpatient (BNVA) | payer OTHER, SELFPAY | PROVIDERS: PCP Internal Medicine; Visit Provider Dietitian, Registered | DX: E74.31 Sucrase-isomaltase deficiency (principal) | CPT/HCPCS: 97802 ==

== ENCOUNTER 2025-02-23 09:51 | Outpatient (AMB) | payer OTHER, SELFPAY ==
[2025-02-23 10:05] VITALS: BP 122/62; BMI 25.5
--- NOTE | 2025-02-23 10:05 | A.OFFVIS_ITS ---
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 Food Consultant Required: No Dial Equipment Engineer: Dial Equipment Engineer Present Allergies cephalexin Allergy (Severe, Verified 02/23/25 10:15) Vomiting ciprofloxacin (Cipro) Adverse Reaction (Mild, Verified 02/23/25 10:15) side effects shrimp Allergy (Mild, Uncoded 02/23/25 10:15) Throat swells up, cant breathe Medication List - Last Reconciled 02/23/25 by Elham Rubio LPN albuterol sulfate 90 mcg/actuation 2 puffs inhalation Q6H ashwagandha root extract mg PO digestive enzymes 1 cap PO DAILY ergocalciferol (vitamin D2) 1,250 mcg PO QWEEK fluticasone propionate 50 mcg/actuation 1 spray intranasal BID lactobacillus combination no.4 (Probiotic) 3,000 mmu cells PO DAILY mesalamine ER 1.5 grams (4 x 0.375 gram) PO QAM multivitamin 1 tab PO DAILY salmon oil-omega-3 fatty acids 1,000-200 mg caps PO vitamin A 1 cap PO DAILY Is last menstrual period known: Yes Last menstrual period: 02/23/25 Post menopausal: No Patient : No Do you need a note to return to daycare/school/sports/work: No HPI HPI 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 She has noticed decreased libido she made a decision some years ago to not be on any hormonal therapy at all secondary to her gastrointestinal diagnosis and when she went off of them she felt better and liked how she felt in general much better she is aware of different changes in her cycle and she uses her missael to really help pinpoint when she is ovulating and she avoids on protected sex at that time she does note that she has a little bit increased libido then. She also has been noticing some vaginal dryness and itching and for that she has been using some orals and ointments that are natural- product -based that she gets online on [employer],(showed me pictures of them and they variously contain substances such as coconut oil and other natural oils such as olive oil and the ointment contain some bees wax and honey, among many many other things.) 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 Sexual orientation: Straight/Heterosexual Gender identity: Female Female Reproductive History Menstrual Age of Menarche: 10 Duration of menses: 3-5 days Date of last menstrual period: 02/23/25 Total pregnancies: 0 Date of last pap smear: 02/18/24 History of abnormal pap smear: No History of STI: No Date of Mammogram: 06/26/24 History of abnormal mammogram: No Physical Exam Vital Signs: Last Vital Signs BP 122/62 02/23/25 10:05 BMI result Body Mass Index 25.5 Const General: healthy appearing, comfortable, no acute distress, well developed and alert Nutritional Appearance: average body habitus Orientation/consciousness: patient oriented x3 Limitations: no limitations HEENT Head: Yes normocephalic Neck Neck: Yes normal visual inspection Chest Chest palpation & inspection: normal inspection of the chest Breast/axilla inspection: normal inspection of the breasts and normal inspection of the axillae Breast/axilla palpation: normal palpation of the breasts and normal palpation of the axillae Resp Effort & Inspection: normal respiratory effort GI Inspection: Yes normal to inspection, No Abdominal wall edema and No distended Palpation (GI): Soft to palpation and nontender Other: Patient is beginning her menses so it is difficult to see if there is evidence of yeast. External vulva appears within normal limits as well as vagina appears within normal limits cervix long close thick mobile nontender uterus small anteverted mobile nontender adnexa non enlarged good muscle tone. General: Yes bladder normal to palpation External Female Exam: normal external appearance and normal appearance of the urethra Speculum Exam - Vagina: normal appearance of the vagina, normal palpation and normal vaginal discharge Speculum Exam - Cervix: normal appearance of the cervix, normal palpation and nontender Bimanual exam- vagina & uterus: normal bimanual exam, normal palpation, uterine size normal, bladder normal to palpation, consistency normal, normal palpation, uterine mobility normal, uterine shape normal, No Cervical tenderness present, non-tender and no cervical motion tenderness Bimanual Exam- Adnexa, other: normal adnexae, no masses, normal and No adnexal tenderness Neuro General: patient oriented x3 Results Reviewed Results Reviewed: Patient: Silvestre Rangel MR#: [id number] : 1980 Acct:[id number] Age/Sex: 43 / F ADM Date: 06/26/24 Loc: HO.MAMMO Attending Dr: Luca Jarvis DNP Ordering Physician: Luca Gunter DNP Date of Service: 06/26/24 Procedure(s): US breast RT limited mamm only Accession Number(s): [id number] cc: Richy Wright; Luca Gunter DNP~ EXAMINATION: MM DIAGNOSTIC DIGITAL BREAST TOMOSYNTHESIS, BILATERAL Limited right breast ultrasound. CLINICAL INFORMATION: Palpable right breast lump upper outer breast. COMPARISON: Mammography: Comparison is made with relevant prior exams. TECHNIQUE: Digital breast mammography with tomosynthesis is performed in both the craniocaudal and mediolateral oblique views along with computer-aided detection (CAD). FINDINGS: The breasts are heterogeneously dense, which may obscure small masses (ACR BI-RADS breast composition Category c). Right: Palpable marker in the upper-outer breast with an underlying circumscribed oval mass. No suspicious calcifications or other abnormal findings. Targeted color Doppler ultrasound scanning in the area the patient's palpable lump at 9:00 6 cm from nipple demonstrates a minimally complicated cyst measuring 10 x 8 x 11 mm which correlates with the circumscribed oval mass and palpable lump. There is no internal vascular flow. The patient's had previous simple cysts in this area previously. Left: No suspicious masses calcifications or other abnormal findings. Results are provided to the patient at time of visit by the technologist. US/US breast RT limited mamm only IMPRESSION: Left: Negative. Right: Minimally complicated cyst on ultrasound correlating with the patient's palpable lump/mass. Benign. ASSESSMENT: BI-RADS BI-RADS 2 - Benign Findings RECOMMENDATION: 1 year F/U This patient's information was entered into a reminder system with a target due date for their next mammogram. Electronically signed by: Barbie Black DO 06/26/2024 03:01 PM EDT RP Dictated By: Barbie Black DO Signed By: <Electronically signed by Barbie Black DO in OV> 06/26/24 1501 DD/ 1442 TD/TT: 06/26/24 1455 Business Technology Architect: Assessment & Plan Assessment & Plan (1) Well woman exam with routine gynecological exam: Code(s): Z01.419 - Encounter for gynecological examination (general) (routine) without abnormal findings Category: Medical (2) Uses fertility awareness method as primary control method: Code(s): Z78.9 - Other specified health status Category: Social Hx (3) Cervical cancer screening: Comment: Pap and HPV negative in 2019 and 2016. Next Pap with HPV co-testing is due 2023. 02/21/24 Pap is negative with negative HPV. Code(s): Z12.4 - Encounter for screening for malignant neoplasm of cervix Category: Medical (4) Microscopic colitis: Code(s): K52.839 - Microscopic colitis, unspecified Category: Medical (5) Perimenopause: Code(s): N95.1 - Menopausal and female climacteric states Category: Medical (6) Vaginal itching: Comment: Possibly maybe consistent with mild yeast discussed the challenges of certain oils trapping yeast. Recommend miconazole 7 cream PRN and water and less is best but use products sparingly. Code(s): N89.8 - Other specified noninflammatory disorders of vagina Category: Medical Plan -----Discussed in this visit the following: healthy balanced diet, regular and consistent exercise, getting recommended health screens, doing the best she can for her particular health concerns, kegel exercises, pap smear screening and followup recommendations, mammography screening and SBE, normal changes in cycles in her life stage--- . She felt something in her breast and had a an extra mammogram and ultrasound last June which did not see anything of concern noted previous cystic structures that had been noted to be benign in the past. She is due for her next mammogram in April. Discussed the challenges of hormone treatment and also the potential benefits however she leans toward not using anything hormonal or medicinal if she can avoid it. Discussed that I am not currently comfortable prescribing HRT, though discussed that there were other provider's who may be more comfortable if she chooses to explore the pros and cons of that more fully. Discussed self-care in general and her excellent self-care with regards to diet exercise sleep and her judicious use of supplements. Also discussed tuning into more subtle symptoms of her cycle and discussed that once she does pass through a year of no menses, the doing a follicle-stimulating hormone level then maybe of some benefit and then she could consider capitalizing on when she does have more libido, without fear of . Orders: Orders Bacterial Vaginosis Panel Today N76.0 - Acute vaginitis Medications: New miconazole nitrate 2% (Miconazole-7) Use p.r.n. for yeast symptoms 1 appful vaginal BEDTIME 45 grams 3RF 7 days Coding Level of Care Code Est Pt Prev Care 40-64y(47038) Diagnoses Well woman exam with routine gynecological exam Z01.419 Uses fertility awareness method as primary control method Z78.9 Cervical cancer screening Z12.4 Microscopic colitis K52.839 Perimenopause N95.1 Vaginal itching N89.8
== END 2025-02-23 12:55 | disposition home or self-care (01) ==
LOC: HO.HWS 09:52
PROVIDERS: PCP Physician Assistant Medical; Visit Provider Advanced Practice Midwife
DX: Z01.419 Encounter for gynecological examination (general) (routine) without abnormal findings (principal); Z78.9 Other specified health status; Z12.4 Encounter for screening for malignant neoplasm of cervix; K52.839 Microscopic colitis, unspecified; N95.1 Menopausal and female climacteric states; N89.8 Other specified noninflammatory disorders of vagina
CPT/HCPCS: 99396; 99459

== ENCOUNTER 2025-02-23 09:51 | Outpatient (REF) | payer OTHER, SELFPAY ==
[2025-02-23 18:09] LABS: Bacterial Vaginosis PCR NEGATIVE (Negative); Candida Group PCR DETECTED (Not Detect); Candida glab krusei PCR NOT DETECTED (Not Detect); Trichomonas vaginalis PCR NOT DETECTED (Not Detect)
== END 2025-02-23 09:52 | disposition home or self-care (01) ==
LOC: HO.LNP 09:51
PROVIDERS: PCP Physician Assistant Medical; Visit Provider Advanced Practice Midwife
DX: Z01.419 Encounter for gynecological examination (general) (routine) without abnormal findings (principal); N95.1 Menopausal and female climacteric states; N76.0 Acute vaginitis; K52.839 Microscopic colitis, unspecified; Z78.9 Other specified health status
CPT/HCPCS: 81515

== ENCOUNTER 2025-03-23 09:32 | Outpatient (AMB) | payer OTHER, SELFPAY ==
--- NOTE | 2025-03-23 09:33 | A.OFFVIS_ITS ---
Intake Visit Reasons: 6 mo Telehealth Intake Note: Silvestre presents as a telehealth for a 6 month follow up. CC: strep this whole week - symptoms since last sunday. She is on antibiotics at the moment and she is feeling a little better. Select Banker Required: No Allergies cephalexin Allergy (Severe, Verified 02/23/25 10:15) Vomiting ciprofloxacin (Cipro) Adverse Reaction (Mild, Verified 02/23/25 10:15) side effects shrimp Allergy (Mild, Uncoded 02/23/25 10:15) Throat swells up, cant breathe HPI HPI 6 mo Telehealth: Details: 44-year-old female called for f/u for microscopic colitis. RECAP: Patient was initially diagnosed with MC in March on colonoscopy 2017, EGD with gastritis, small bowel bx normal Patient was initially started on budesonide 9 mg daily and was starting to reduce dosage to 6 mg but when she returned in May, still reported having ongoing diarrhea and was instructed to increase back to the original 9 mg daily. This was working well for her she was not having any issues as far as heartburn and reflux she was given course fo ABX in case of superimposed SIBO plan was also to consider trial of pepto or imodium to wean her from budesonide she was given rifaximin in case of SIBO and it made her feel improved she had also tried ibgard she was improved but still not 100% so given trial of bismuth 2 tab tid she did have low Vit A and on supplement, Zn nml and neg TTG RAST: allergy testing neg I added meslamine due to ongoing sx--apriso Vit A level was 62 after replacement--then went down 35 Vit D also low 22.7 EGD/colo 02/07 Endoscopy Findings: lax LES midl esophagitis mild gastritis Colonoscopy Findings: internal hemorrhoids PAth: lymphocytic colitis low lactase, maltase and sucrase INTERIM: she is recovering from strep throat on amoxicillin, has covid and strep as well she has some diarhhea and taking pro biotic and pre biotic she is still taking apriso she went to nutrition for advice on low sucrose diet EXAM: GENERAL: The patient is well developed and nontoxic. VITAL SIGNS:see workflow HEENT: Nonicteric sclerae, PERRLA, EOMI. Oropharynx clear. Moist mucous membranes. Conjunctivae appear well perfused. No thyroid mass. CHEST: Chest wall is nontender. HEART: Regular rate and rhythm without murmurs. LUNGS: Clear to auscultation bilaterally. ABDOMEN: Soft, positive bowel sounds, nontender, no organomegaly.no flank tenderness SKIN: No rash, no excessive bruising, petechiae, or purpura. NEUROLOGIC: Cranial nerves II-XII intact without motor/sensory deficit. Psych: normal affect Assessments 1. Microscopic colitis - controlled, may have had SIBO in past as responded well to flagyl 2. Vit A deficiency, 3. bloating, with lactase, sucrase, maltase defcn PLAN: 1/ recheck vit A level 2/ sent script for sucrase supplement PFS Medical History Microscopic colitis Surgical History H/O colonoscopy History of esophagogastroduodenoscopy (EGD) H/O foot surgery Family History Mother Hypotension Heart problem Diverticulosis Father HTN (hypertension) HX: breast cancer Hx of thyroid disease Brother Seizure Social History Household Members: Spouse Housing: Apartment Alcohol intake: current Alcohol intake frequency: does not drink Patient Tobacco Use Status: Never used Tobacco Current occupational status: employed 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 Sexual orientation: Straight/Heterosexual Gender identity: Female Female Reproductive History Menstrual Age of Menarche: 10 Telehealth Telehealth Telehealth Platform: [facility] Location of provider rendering services: practice address Location of patient: address on file Patient Identification confirmed using: Name, : Yes Telehealth method: video Patient verbally consented to treatment: Yes Patient verbally consented to billing insurance company: Yes Patient informed of any privacy concerns related to visit: Yes Minutes spent on Phone/Video with Pt.: 12 Assessment & Plan Assessment & Plan (1) Vitamin A deficiency: Code(s): E50.9 - Vitamin A deficiency, unspecified Category: Medical Plan: as above Orders: Orders 2 Vitamin A Today E50.9 - Vitamin A deficiency, unspecified Medications: New sacrosidase (Sucraid) must administer with a meal/food 2 mL PO QID 300 mL 1RF Coding Level of Care Code Tele Est Pt Level 3 (80059) Diagnoses Vitamin A deficiency E50.9
== END 2025-03-23 18:16 | disposition home or self-care (01) ==
LOC: HO.HGI 09:32
PROVIDERS: PCP Physician Assistant Medical; Visit Provider Internal Medicine Gastroenterology
DX: E50.9 Vitamin A deficiency, unspecified (principal)
CPT/HCPCS: 99213